=== PATIENT | female | born 1950 | race Caucasian/White ===

== ENCOUNTER 2019-05-31 21:12 | Inpatient (IN) | payer MEDICARE, MEDICAID, SELFPAY ==
--- NOTE | ~2019-05-31 | US_ITS ---
EXAMINATION: US perc cholecystostomy w imag DATE: 06/01/2019 15:21 INDICATION: Acute cholecystitis TECHNIQUE: The procedure including the risks and benefits was discussed with the patient. Risks discu ssed included bleeding including hemorrhage and bile peritonitis. Oral and written consent were obtai chin. The patient was confirmed to be receiving appropriate antibiotic coverage. The skin overlying t he liver and gallbladder was prepped and draped in usual sterile fashion. Anesthetic was administere d with 1% lidocaine subcutaneously. An 8.5 Fr catheter was inserted through liver parenchyma into th e gallbladder by trocar technique. The metal stiffener and trocar needle were removed, and the pigtai l tip was locked. There was spontaneous efflux of dark black/maroon-colored bile within the catheter which was attached to gravity drainage bag. The catheter was stitched to the skin with suture. There were no immediate complications. FINDINGS: The gallbladder is dilated with prominent wall thickening consistent with acute cholecystit is. Ultrasound images demonstrate the catheter formed within the gallbladder. IMPRESSION: 1. Successful ultrasound-guided cholecystostomy tube placement. 2. The catheter will be managed by Dr. Figueroa. A catheter cholangiogram may be performed not less th an 48 hours after tube placement if clinically indicated to assess cystic duct patency. If cholecyst ectomy is not eventually performed and the infectious episode has resolved, the tube may be removed o ru a guidewire, preferably not less than 3 weeks after placement to allow time for a mature catheter tract to form to prevent bile leakage and peritonitis. 3. A sample of the bile was inadvertently not sent to the lab at the time of the procedure. I discuss ed this with Huseyin, the patient's nurse, who will sterilely collected a sample from the drainage bag t o be sent to the lab. I entered orders for Gram stain with aerobic, anaerobic and fungal cultures. Reviewed, dictated and finalized at location A. CAD DESIGNER IMPRESSION: 1. Successful ultrasound-guided cholecystostomy tube placement. 2. The catheter will be managed by Dr. Figueroa. A catheter cholangiogram may be performed not less than 48 hours after tube placement if clinically indicated to assess cystic duct patency. If cholecystectomy is not eventually performed and the infectious episode has resolved, the tube may be removed over a guidewi re, preferably not less than 3 weeks after placement to allow time for a mature catheter tract to form to prevent bile leakage and peritonitis. 3. A sample of the bile was inadvertently not sent to the lab at the time of th e procedure. I discussed this with Huseyin, the patient's nurse, who will sterilel y collected a sample from the drainage bag to be sent to the lab. I entered ord ers for Gram stain with aerobic, anaerobic and fungal cultures.
--- NOTE | ~2019-05-31 | CT_ITS ---
EXAMINATION: CT abdomen pelvis w con DATE: 05/31/2019 22:45 INDICATION: Abdominal pain TECHNIQUE: Computed tomography (CT) of the abdomen and pelvis was performed with 100 mL Omnipaque-350 intravenous contrast. Automated exposure control and iterative reconstruction technique were employe d. The dose-length product was 1409.18 mGy-cm. COMPARISON: None FINDINGS: Respiratory motion at the lung bases. Discoid atelectasis in the left lower lobe and lingula. Mild ca rdiomegaly. Atherosclerotic coronary artery calcifications and dense mitral annular calcification. Sm all pericardial effusion. No pleural effusion. Small sliding-type hiatal hernia with wall thickening in the distal esophagus which could be related to reflux esophagitis. Gallbladder is dilated to 5.3 cm with edematous-appearing gallbladder wall thickening and pericholecy stic inflammatory stranding and small amount of fluid consistent with acute cholecystitis. There are 2 small foci of gas at the cari hepatis in the region of the neck of the gallbladder/cystic duct and which appear peripheral to the wall of the duodenum. There is also a tiny focus of gas at the tip of the fundus of the gallbladder. Findings suggest the possibility of an enterobiliary fistula versus i nfection with gas-forming organism. No other free intraperitoneal gas. Liver, spleen, pancreas and bilateral adrenal glands are normal. Calcifications at the bilateral king l chantel which appear to extend along the vessels and favor atherosclerotic calcific a cyst over nonobs tructing nephrolithiasis. 6.5 x 9.6 x 8.1 cm ventral hernia containing fat likely arising from the gr eater omentum. This extends through a 3.3 x 3.8 cm orifice along a supraumbilical midline surgical sc ar. Bowels including the appendix are normal with no wall thickening or obstruction. Bladder is claudia l. Normal anteverted atrophic uterus and bilateral adnexa. No abscess or free fluid in the pelvis. No pathologically enlarged abdominal or pelvic lymphadenopathy. There is calcified atherosclerosis of t he aorta and many of the other arteries. Severe thoracolumbar spondylosis. IMPRESSION: 1. Acute cholecystitis with minimal gas in the gallbladder and likely at the cystic duct which could be related to gas-forming organism or an enterobiliary fistula. 2. Wall thickening in the distal esophagus with small hiatal hernia suggesting possibility of reflux esophagitis. 3. Small pericardial effusion. 4. Moderate-sized fat-containing supraumbilical ventral hernia. Reviewed, dictated and finalized at location A. TS ANCHOR IMPRESSION: 1. Acute cholecystitis with minimal gas in the gallbladder and likely at the cy stic duct which could be related to gas-forming organism or an enterobiliary fi stula. 2. Wall thickening in the distal esophagus with small hiatal hernia suggesting possibility of reflux esophagitis. 3. Small pericardial effusion. 4. Moderate-sized fat-containing supraumbilical ventral hernia.
--- NOTE | 2019-05-31 21:16 | ED.NAVMDI ---
HPI - Nausea/Vomiting/Diarrhea General Chief complaint: Nausea/Vomiting/Diarrhea <Marva Fay MD - Last Filed: 06/02/19 15:14> Stated complaint: elevated bs, hr <Marva Fay MD - Last Filed: 06/02/19 15:14> Time Seen by Provider: 05/31/19 21:13 <Marva Fay MD - Last Filed: 06/02/19 15:14> Source: patient, EMS and RN notes reviewed <Marva Fay MD - Last Filed: 06/02/19 15:14> Mode of arrival: EMS <Marva Fay MD - Last Filed: 06/02/19 15:14> Limitations: no limitations <Marva Fay MD - Last Filed: 06/02/19 15:14> History of Present Illness HPI Narrative: A 68 y/o female presents to the ED via EMS with dull, 8/10, epigastric ABD pain for the past 2-3 days. She reports associated N/V and constipation. She notes that palpation aggravates the pain and denies anything alleviating it. She also notes that she is a DM I and that her BS has been elevated lately. She denies any diarrhea, fevers, chills, cough, SOB, CP, and any other medical complaints at this time. <Marva Fay MD - Last Filed: 06/02/19 15:14> MD elicited complaint: abdominal pain (Epigastric) <Marva Fay MD - Last Filed: 06/02/19 15:14> Onset (ago): day(s) (2-3) <Marva Fay MD - Last Filed: 06/02/19 15:14> Associated nausea: Yes <Marva Fay MD - Last Filed: 06/02/19 15:14> Location of pain: epigastric <Marva Fay MD - Last Filed: 06/02/19 15:14> Pain scale (0-10): 8 <Marva Fay MD - Last Filed: 06/02/19 15:14> Quality: dull <Marva Fay MD - Last Filed: 06/02/19 15:14> Exacerbating factors: other (palpation) <Marva Fay MD - Last Filed: 06/02/19 15:14> Relieving factors: none <Marva Fay MD - Last Filed: 06/02/19 15:14> Associated symptoms: nausea/vomiting and other (constipation) <Marva Fay MD - Last Filed: 06/02/19 15:14> Related Data Home medications: Home Medications Medication Instructions Recorded Confirmed alendronate 70 mg PO WEEKLY 06/01/19 06/01/19 amlodipine 10 mg PO DAILY 06/01/19 06/01/19 aspirin 81 mg PO DAILY 06/01/19 06/01/19 bisacodyl [Dulcolax (bisacodyl)] 10 mg PO HS PRN 06/01/19 06/01/19 calcium carbonate-vitamin D3 1 tablet PO DAILY 06/01/19 06/01/19 [Calcium 600 + D(3)] cholecalciferol (vitamin D3) 1,000 unit PO BID 06/01/19 06/01/19 cyanocobalamin (vitamin B-12) 1,000 mcg IM MONTHLY 06/01/19 06/01/19 demeclocycline 300 mg PO Q12H 06/01/19 06/01/19 escitalopram oxalate 20 mg PO DAILY 06/01/19 06/01/19 insulin aspart U-100 [Novolog 1 sliding scale dose SUBCUT DAILY 06/01/19 06/01/19 U-100 Insulin aspart] insulin aspart U-100 [Novolog 1 sliding scale dose SUBCUT DAILY 06/01/19 06/01/19 U-100 Insulin aspart] insulin aspart U-100 [Novolog 4 unit SUBCUT 06/01/19 U-100 Insulin aspart] insulin glargine [Lantus U-100 28 unit SUBCUT HS 06/01/19 06/01/19 Insulin] levothyroxine 112 mcg PO DAILY 06/01/19 06/01/19 lidocaine HCl [Aspercreme 1 applic TOPICAL QID PRN 06/01/19 (lidocaine)] liothyronine [Cytomel] 5 mcg PO BID 06/01/19 06/01/19 meclizine 12.5 mg PO TID 06/01/19 06/01/19 melatonin 1 mg PO HS PRN 06/01/19 06/01/19 fspeshfqjvtg-ccx-cemd-FA-vit K 1 tablet PO DAILY 06/01/19 06/01/19 [Adults Multivitamin] nystatin 1 applic TOPICAL BID PRN 06/01/19 06/01/19 polyethylene glycol 3350 [Miralax] 17 g PO BID 06/01/19 06/01/19 ranitidine HCl 150 mg PO DAILY PRN 06/01/19 06/01/19 risperidone 1 mg PO HS 06/01/19 06/01/19 sennosides-docusate sodium [Senna 2 tab-cap PO BID 06/01/19 06/01/19 Plus] <Marva Fay MD - Last Filed: 06/02/19 15:14> Allergies/Adverse reactions: Allergies Allergy/AdvReac Type Severity Reaction Status Date / Time chlorpromazine Allergy Unknown Verified 02/13/12 13:47 lactase Allergy Unknown Verified 06/14/11 15:08 levofloxacin Allergy Unknown Verified 02/13/12 13:47 Penicillins Allergy Unknown Verified 02/13/12 13:46 Sulfa (Sulfonamide
[2019-05-31 21:21] VITALS: BP 168/71; PULSE 117; RESP 18; TEMP 37.8; O2SAT 99
--- NOTE | 2019-05-31 21:21 | ECG_ITS ---
Measurements Intervals [place] Rate: 115 P: 64 OK: 132 QRS: -60 QRSD: 86 T: 61 QT: 324 QTc: 450 Interpretive Statements SINUS TACHYCARDIA POSSIBLE LEFT ATRIAL ENLARGEMENT INCOMPLETE RIGHT BUNDLE BRANCH BLOCK LOW QRS VOLTAGE IN PRECORDIAL LEADS LEFT ANTERIOR FASCICULAR BLOCK CONSIDER INFERIOR INFARCT, AGE INDETERMINATE ABNORMAL ECG Electronically Signed On 06-01-2019 7:32:14 PRINT PRODUCTION COORDINATOR by Francis Blanchard D.O.
[2019-05-31] MEDS: SODIUM CHLORIDE 0.9% IV 1,000 ML 999 ML IV CONT (21:35)
[2019-05-31] MEDS: ONDANSETRON INJ 4 MG/2 ML VIAL IV PUSH (21:41)
[2019-05-31 21:47] LABS: Add Urine Microscopic? YES; Appearance Urine Clear (Clear); Bacteria Urine Trace /hpf; Bilirubin Urine Negative (Negative); Blood Urine 2+ (Negative); Color Urine Yellow (Yellow); Glucose Urine UA 3+ mg/dL (Negative); Ketones Urine 2+ mg/dL (Negative); Leukocyte Esterase Ur Negative LEU/UL (Negative); Mucus Urine Rare /lpf; Nitrate Urine Negative (Negative); Protein Urine 2+ mg/dL (Negative); RBC Urine 0-2 /hpf (0-2); Specific Grav Ur 1.025 (1.001-1.035); Squamous Epithelial Cell Urine Few /hpf (Few); Urobilinogen Urine Negative mg/dL (<2.0); WBC Urine 0-3 /hpf
[2019-05-31 22:01] LABS: Basophils Percent Auto 0.1 % (0.2-1.2); Hematocrit 38.4 % (37.0-47.0); Hemoglobin 12.9 g/dL (12.0-15.0); Immature Granulocyte Absolute 0.12 K/mm3 (0.00-0.031); Immature Granulocyte Percent A 0.6 % (0-0.5); Lymphocytes Absolute Auto 0.84 K/mm3 (0.9-3.2); Lymphocytes Percent Auto 3.9 % (18.3-44.2); Mean Corpuscular HGB Conc 33.6 g/dl (32-36); Mean Corpuscular Hemoglobin 30.6 pg (26-34); Mean Platelet Volume 11.3 fl (7.4-10.4); Monocytes Percent Auto 4.4 % (2.6-8.5); Neutrophils Absolute Auto 19.8 K/mm3 (1.3-6.7); Platelet Count Result 291 k/mm3 (150-375); Red Blood Count 4.22 M/mm3 (4.2-5.4); White Blood Count 21.7 K/mm3 (4.5-10.0)
[2019-05-31 22:19] LABS: Alanine Aminotransferase 26 U/L (4-35); Albumin Level 4.3 g/dL (3.5-5.1); Alkaline Phosphatase 108 U/L (38-126); Aspartate Amino Transferase 23 U/L (14-36); Bilirubin,Total 0.7 mg/dL (0.2-1.3); Blood Urea Nitrogen 12 mg/dL (7-17); Carbon Dioxide 24 mmol/L (22-30); Chloride 91 mmol/L (98-107); Estimated CRCL calculation 99 ml/min; Estimated Glomerular Filt Rate > 60; Glucose 362 mg/dL (65-105); Lipase 56 U/L (23-300); Potassium 4.3 mmol/L (3.4-5.0); Sodium 127 mmol/L (137-145)
[2019-05-31 22:40] LABS: Troponin I 0.091 ng/mL (0.000-0.034)
[2019-05-31 23:28] LABS: Beta-Hydroxybutyrate/Acetoacetate 2.46 mmol/L (0.02-0.27)
[2019-05-31] MEDS: INSULIN HUMAN REGULAR (*BKC) 100 UNITS/ML 10 UNITS IV PUSH (23:38)
[2019-05-31] MEDS: metroNIDAZOLE 500 MG/ISO 100ML 500 MG/100 ML BAG 100 MG IVPB (23:39)
[2019-05-31 23:46] LABS: Glucose Point of Care 359 (65-105)
[2019-05-31 23:53] LABS: Lactic Acid Reflex 1.9 mmol/L (0.7-2.1)
[2019-06-01] VITALS (15 sets, daily range): BP systolic 135–174; BP diastolic 58–98; PULSE 46–121; RESP 16–26; TEMP 36.3; O2SAT 97–100; BMI 42.8
--- NOTE | 2019-06-01 | ECHO_ITS ---
Patient Info Name: Miladys Felipe Age: 68 years : 1950 Gender: Female Ht: 65 in Wt: 260 lbs BSA: 2.39 m2 HR: 101 bpm BP: 174 / 62 mmHg Technical Quality: Fair Exam Date: 06/01/2019 10:36 AM Exam Location: [facility] Patient Status: Inpatient Admit Date: 06/01/2019 Staff Ordering Physician: Sarah Gillespie PA-C Metalworking Instructor: Miladys Barnett RDCS Attending Provider: Izabel Holt DO Referring Physician: Jose Miguel MATOS; Exam Type: CA echo dop color flow w con Study Info Complete two-dimensional, color flow and Doppler transthoracic echocardiogram is performed with contrast to opacify the left ventrical and to improve the deliniation of the left ventrical endocarial boarders. Contrast/Agitated Saline Contrast/Ag. Saline: Definity Amount: 2.00 ml Summary 1. There is moderate aortic valve sclerosis. Left Ventricle Left ventricular chamber dimension is normal. Left ventricular systolic function is normal, estimated at 65-70%. There is no increased left ventricular wall thickness. Left ventricular septal wall motion is normal. The left ventricular diastolic function is normal. Right Ventricle Right ventricular chamber dimension is normal. Right ventricular systolic function is normal. Left Atria Left atrial chamber dimension is normal. Right Atria Right atrial chamber dimension is normal. Aortic Valve The aortic valve is trileaflet. There is moderate aortic valve sclerosis. There is no aortic valve stenosis. There is no aortic valve regurgitation. Pulmonic Valve The pulmonic valve is normal. There is no pulmonic valve stenosis. There is no pulmonic regurgitation. Mitral Valve The mitral valve has normal leaflets. There is no mitral valve stenosis. There is no mitral valve regurgitation. Tricuspid Valve The tricuspid valve leaflets are normal. There is no significant tricuspid valve stenosis. There is no tricuspid valve regurgitation. Mild pulmonary hypertension, estimated pulmonary arterial systolic pressure is 38 mmHg. Pericardium/Pleural The pericardium appears normal. There is no pericardial effusion. Aorta The aortic root size at the sinus of Valsalva is normal. The prox ascending aorta size is normal. Left Ventricular Outflow Tract Name Value Normal LVOT 2D LVOT Diameter 2.03 cm LVOT Doppler LVOT Peak Velocity 131.71 cm/s LVOT Peak Gradient 6 mmHg LVOT Mean Gradient 1 mmHg LVOT VTI 32.26 cm LVOT VTI/AV VTI Ratio 0.85 LVOT Stroke Volume 104.69 ml LVOT CO 20.38 l/min LVOT CI 8.53 L/min/m2 Pulmonic Valve Name Value Normal PV Doppler
[2019-06-01] MEDS: LABETALOL HCL INJ 100 MG/20 ML VIAL 20 MG IV PUSH (00:03)
[2019-06-01 00:59] LABS: Troponin I 0.093 ng/mL (0.000-0.034)
[2019-06-01 00:59] LABS: Glucose Point of Care 283 (65-105)
[2019-06-01] MEDS: SODIUM CHLORIDE 0.9% IV 1,000 ML 150 ML IV CONT (02:07)
[2019-06-01 04:25] LABS: Troponin I 0.109 ng/mL (0.000-0.034)
[2019-06-01] MEDS: metroNIDAZOLE 500 MG/ISO 100ML 500 MG/100 ML BAG 100 MG (06:14)
[2019-06-01 08:19] LABS: Glucose Point of Care 420 (65-105)
[2019-06-01 09:20] LABS: Basophils Absolute Auto 0.1 K/mm3 (0.0-0.1); Basophils Percent Auto 0.2 % (0.2-1.2); Hematocrit 35.7 % (37.0-47.0); Hemoglobin 11.8 g/dL (12.0-15.0); Immature Granulocyte Percent A 0.8 % (0-0.5); Lymphocytes Absolute Auto 1.05 K/mm3 (0.9-3.2); Mean Corpuscular HGB Conc 33.1 g/dl (32-36); Mean Corpuscular Hemoglobin 30.6 pg (26-34); Mean Corpuscular Volume 92.5 fl (80-100); Mean Platelet Volume 11.6 fl (7.4-10.4); Monocytes Absolute Auto 1.5 K/mm3 (0.1-0.6); Monocytes Percent Auto 5.6 % (2.6-8.5); Neutrophils Absolute Auto 23.2 K/mm3 (1.3-6.7); Neutrophils Percent Auto 89.4 % (45.5-73.1); Platelet Count Result 268 k/mm3 (150-375); Red Blood Count 3.86 M/mm3 (4.2-5.4); Red Cell Distribution Width 12.3 % (11.5-14.5)
[2019-06-01 09:33] LABS: Lactic Acid Reflex 1.3 mmol/L (0.7-2.1)
[2019-06-01 09:34] LABS: Alanine Aminotransferase 22 U/L (4-35); Albumin Level 3.8 g/dL (3.5-5.1); Alkaline Phosphatase 99 U/L (38-126); Aspartate Amino Transferase 19 U/L (14-36); Bilirubin,Total 0.7 mg/dL (0.2-1.3); Blood Urea Nitrogen 15 mg/dL (7-17); Calcium 8.9 mg/dL (8.4-10.2); Carbon Dioxide 18 mmol/L (22-30); Chloride 95 mmol/L (98-107); Estimated CRCL calculation 101 ml/min; Estimated Glomerular Filt Rate > 60; Glucose 425 mg/dL (65-105); Potassium 4.2 mmol/L (3.4-5.0); Sodium 132 mmol/L (137-145)
--- NOTE | 2019-06-01 09:40 | PM.CNCAR ---
Assessment and Plan Assessment and plan (1) Non-ST elevation myocardial infarction (NSTEMI): Code(s): I21.4 - Non-ST elevation (NSTEMI) myocardial infarction Status: Acute Assessment and Plan: She has slight elevation of troponin, will get echocardiogram to evaluate current status of left ventricular systolic function and look for any other structural heart disease, she needs to be on aspirin, and metoprolol. No heparin for now due to the fact that she may go for surgery or a procedure, from cardiac standpoint it is okay to go for surgery as long as we are on standby to intervene if she has any worsening or any cardiac abnormalities. Long-term she would need to have cardiac catheterization in few days after she is otherwise stabilized (2) Pre-operative cardiovascular exam, new EKG abnormalities c/w ischemia: Code(s): Z01.810 - Encounter for preprocedural cardiovascular examination; R94.31 - Abnormal electrocardiogram [ECG] [EKG] Status: Acute Assessment and Plan: Since the surgery is possibly urgent, okay to proceed with that assuming she is taking metoprolol and taking aspirin, will follow-up closely and be on standby (3) Sepsis: Qualifiers: Sepsis acute organ dysfunction status: without acute organ dysfunction Sepsis type: sepsis due to unspecified organism Qualified Code(s): A41.9 - Sepsis, unspecified organism Code(s): A41.9 - Sepsis, unspecified organism Status: Acute (4) Acute cholecystitis: Code(s): K81.0 - Acute cholecystitis Status: Acute Assessment and Plan: She has been evaluated by General surgery, maybe going for gallbladder surgery versus drainage, okay to proceed with whatever procedure needed stenosis is urgent, will need cardiac catheterization whenever she is otherwise stable, and was started on aspirin and metoprolol, get echocardiogram to evaluate current status of left ventricular systolic function, look for any structural heart disease. Additional Plan Thank you for allowing me to participate in this patient's care, I will be following up with you. Please do not hesitate to call me for any other inquiry History of Present Illness History of Present Illness Consult date/time: 06/01/19 09:40 68 years old lady with history of diabetes mellitus, type 1, history of bipolar disorder, came to the hospital because of nausea vomiting abdominal pain, noted to have gallbladder disease and she has been consider for possible gallbladder surgery. With the workup had noted significant tachycardia cardiac enzymes were done and showed slight elevation of troponin. She stated that she has history of diabetes mellitus for many years and history of dyslipidemia but had not had any heart issues. She is not very good historian however but she has significant shortness breath no chest pain no known history of coronary artery disease. Her EKG showed possible old inferior wall myocardial infarction, I talked with the surgeon, she has been considered for gallbladder surgery versus temporary drainage and medical treatment with observation. Currently she is not having active chest pain, which has mild shortness breath on mild leg edema. She has mild orthopnea no PNDs. And as above she has nausea and vomiting Reason For Visit: Acute cholecystitis, elevation PMFSH Past Medical History Medical History (Updated 06/01/19 @ 09:45 by Sheng Faria MD) Anxiety Bipolar 1 disorder Cataracts, bilateral Charcot gait Colitis Depression DM I (diabetes mellitus, type I) GERD (gastroesophageal reflux disease) Glaucoma H/O: HTN (hypertension) Hypercholesteremia Hypoglycemia Hypothyroid IBS (irritable bowel syndrome) Peripheral neuropathy Schizophrenia Thyroid cancer Surgical History Surgical History (Updated 05/31/19 @ 21:46 by Donell Gonzalez) H/O foot surgery History of thyroidectomy Hx of bilateral cataract extraction Previous section x2. Family Histo
[2019-06-01 09:48] LABS: Troponin I 0.083 ng/mL (0.000-0.034)
[2019-06-01] MEDS: METOPROLOL TARTRATE INJ 5 MG/5 ML VIAL IV PUSH (09:49)
[2019-06-01] MEDS: ASPIRIN 81 MG CHEWABLE TABLET 324 MG PO (10:01)
[2019-06-01] MEDS: PANTOPRAZOLE SODIUM IV 40 MG VIAL IV PUSH ×2 (10:02→22:28)
[2019-06-01 10:09] LABS: Cholesterol 203 mg/dL (0-200); HDL Direct 77 mg/dL; Triglycerides 61 mg/dL (<150)
[2019-06-01 10:20] LABS: LDL Cholesterol Direct 89 mg/dL
[2019-06-01] MEDS: INSULIN ASPART (*BKC) 100 UNITS/ML 8 UNITS SUB-Q (10:25)
[2019-06-01] MEDS: INSULIN GLARGINE (*BKC) 100 UNITS/ML 8 UNITS SUB-Q (10:40)
--- NOTE | 2019-06-01 10:59 | PM.CNGS ---
Assessment and Plan Assessment and plan (1) Acute cholecystitis: Code(s): K81.0 - Acute cholecystitis Status: Acute Assessment and Plan: I have reviewed the CT. I have also discussed her condition with Radiology and cardiology. She has positive troponins which are concerning for active heart disease which increases her risks for surgery. The findings on the CT also show possible emphysematous cholecystitis and there is significant inflammatory reaction around the gallbladder with bowel in very close proximity. Cannot rule out cholecysto-enteric fistula. Surgery would be very high risk in the patient's current condition with sepsis and NSTEMI. Will plan for ultrasound-guided cholecystostomy tube placement by Radiology today. I will continue to manage the cholecystostomy tube in the interim. Continue broad-spectrum IV antibiotics. Interval cholecystectomy may be planned further down the road, but this will be determined by patient's overall status and heart condition. (2) Sepsis: Qualifiers: Sepsis acute organ dysfunction status: without acute organ dysfunction Sepsis type: sepsis due to unspecified organism Qualified Code(s): A41.9 - Sepsis, unspecified organism Code(s): A41.9 - Sepsis, unspecified organism Status: Acute (3) Non-ST elevation myocardial infarction (NSTEMI): Code(s): I21.4 - Non-ST elevation (NSTEMI) myocardial infarction Status: Acute (4) Morbid obesity with BMI of 40.0-44.9, adult: Code(s): E66.01 - Morbid (severe) obesity due to excess calories; Z68.41 - Body mass index (BMI) 40.0-44.9, adult Status: Acute (5) Ventral hernia without obstruction or gangrene: Code(s): K43.9 - Ventral hernia without obstruction or gangrene Status: Acute (6) DM I (diabetes mellitus, type I): Qualifiers: Diabetes mellitus complication status: with neurologic complications Diabetes mellitus complication detail: with polyneuropathy Qualified Code(s): E10.42 - Type 1 diabetes mellitus with diabetic polyneuropathy Code(s): E10.9 - Type 1 diabetes mellitus without complications Status: Acute History of Present Illness Consult details Consult date: 06/01/19 Narrative: this is a 68-year-old woman who presented to the emergency department overnight with complaints of abdominal pain with nausea and vomiting. She has been experiencing abdominal pain in the upper abdomen for about 3 days. She denies any particular food that she ate that could have caused this. She has never had symptoms like this in the past. She is a type 1 diabetic, and she states that her blood sugars have been very elevated over the past couple days as well. She has not eaten anything since yesterday, but her sugars still remain elevated. She denies any chest pain or shortness of breath. She denies any prior cardiac history. She does know that she has an abdominal hernia that has been present for about 6 or 8 months. It has not caused her any significant pain until just these past few days. She does feel that her pain is somewhat improved since starting antibiotics last night. She denies any fevers or chills. Review of Systems Review of Systems: All systems reviewed & are unremarkable except as noted in HPI and below Constitutional: Constitutional: Denies chills and Denies fever(s) Eyes: Eyes: Denies change in vision ENT: Denies hearing loss, Denies neck pain and Denies sore throat Cardiovascular: Cardiovascular: Denies chest pain and Denies dyspnea Respiratory: Respiratory: Denies cough, Denies dyspnea and Denies wheezing Gastrointestinal: Gastrointestinal: Reports as per HPI and Reports constipation Genitourinary: Genitourinary: Denies hematuria and Denies dysuria Musculoskeletal: Musculoskeletal: Denies arthralgias, Denies joint swelling and Denies neck pain Allergic/Immunologic: Allergic/Immunologic: Denies wheezing PMFSH Past Medical History M
[2019-06-01 13:07] LABS: Glucose Point of Care 324 (65-105)
[2019-06-01] MEDS: INSULIN ASPART (*BKC) 100 UNITS/ML SUB-Q ×3 (13:13→21:10)
[2019-06-01 13:32] LABS: INR 1.1; Prothrombin Time 14.2 Seconds (11.1-14.7)
[2019-06-01 13:33] LABS: Partial Thromboplastin Time 39.3 SECONDS (22.3-36.8)
[2019-06-01] MEDS: MORPHINE SULFATE 4 MG/ML INJ IV PUSH ×2 (14:32→16:41)
--- NOTE | 2019-06-01 15:28 | ADMGEN ---
This patient, Miladys Felipe, was admitted to IMU Room 206-02. Patient/family oriented to hospital policies and general routines including ID bracelet, bed and alarms, visiting hours, pain management, procedures, bathroom and other care routines, personal items, smoking policy, room service/diet, and visiting hours. Valuables list has been completed. Information on how to activate the Rapid Response Team has been discussed. Patient/Family are encouraged to report perceived risks to care and to ask questions if they do not understand what they are told or what they should do.
[2019-06-01] MEDS: metroNIDAZOLE 500 MG/ISO 100ML 500 MG/100 ML BAG 100 MG IVPB ×2 (16:08→22:26)
[2019-06-01] MEDS: LACTATED RINGERS 1,000 ML 100 ML IV CONT (16:08)
--- NOTE | 2019-06-01 16:57 | PM.IMHP ---
H&P: HPI History of Present Illness Chief complaint: Acute cholecystitis, elevation Narrative: Miladys Felipe is a 68 year old female [facility] morbidly obese with history of diabetes with a complaint of abdominal pain nausea or vomiting and constipation CT scan of abdomen showed acute cholecystitis with minimal gas in the gallbladder and likely at the cystic duct which could be related to gas-forming organism or an enterobiliary fistula., also has a non STEMI and hyperglycemia, patient is seen by general surgery recommended conservative management with 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 and with elevated tropes and hyperglycemia patient is a very high risk of surgery and recommended ultrasound-guided cholecystostomy tube by intervention radiologist, patient also seen by commercial portfolio manager patient has a mildly elevated tropes does not recommend ischemic workup at the present time cardiac echo is ordered further assess structural abnormality of the heart, we have started the patient on home broad-spectrum antibiotic will gently hydrate the patient monitor patient blood sugar is patient's symptoms stabilized see general surgery will reassess with a recommendation with possible cholecystectomy Review of Systems Review of Systems: All systems reviewed & are unremarkable except as noted in HPI and below PMFSH Past Medical History Medical History Anxiety Bipolar 1 disorder Cataracts, bilateral Charcot gait Colitis Depression DM I (diabetes mellitus, type I) GERD (gastroesophageal reflux disease) Glaucoma H/O: HTN (hypertension) Hypercholesteremia Hypoglycemia Hypothyroid IBS (irritable bowel syndrome) Peripheral neuropathy Schizophrenia Thyroid cancer Surgical History Surgical History H/O foot surgery History of thyroidectomy Hx of bilateral cataract extraction Previous section x2. Family History Family History Mother Family history of thyroid disease Sibling Family history of thyroid disease Father Cancer Other Family history of arthritis Family history of cataracts Family history of glaucoma Family history of hearing loss Family history of lung disease Social History Social History Smoking status: Never smoker Alcohol intake: never Substance use: never Spiritual care concerns: No Agree to blood products: Yes Meds Home Medications and Allergies Home Medications Medication Instructions Recorded Confirmed Type alendronate 70 mg PO WEEKLY 06/01/19 06/01/19 History amlodipine 10 mg PO DAILY 06/01/19 06/01/19 History aspirin 81 mg PO DAILY 06/01/19 06/01/19 History bisacodyl [Dulcolax (bisacodyl)] 10 mg PO HS PRN 06/01/19 06/01/19 History calcium carbonate-vitamin D3 1 tablet PO DAILY 06/01/19 06/01/19 History [Calcium 600 + D(3)] cholecalciferol (vitamin D3) 1,000 unit PO BID 06/01/19 06/01/19 History cyanocobalamin (vitamin B-12) 1,000 mcg IM MONTHLY 06/01/19 06/01/19 History demeclocycline 300 mg PO Q12H 06/01/19 06/01/19 History escitalopram oxalate 20 mg PO DAILY 06/01/19 06/01/19 History insulin aspart U-100 [Novolog 1 sliding scale dose SUBCUT DAILY 06/01/19 06/01/19 History U-100 Insulin aspart] insulin aspart U-100 [Novolog 1 sliding scale dose SUBCUT DAILY 06/01/19 06/01/19 History U-100 Insulin aspart] insulin aspart U-100 [Novolog 4 unit SUBCUT 06/01/19 History U-100 Insulin aspart] insulin glargine [Lantus U-100 28 unit SUBCUT HS 06/01/19 06/01/19 History Insulin] levothyroxine 112 mcg PO DAILY 06/01/19 06/01/19 History lidocaine HCl [Aspercreme 1 applic TOPICAL QID PRN 06/01/19 History (lidocaine)] liothyronine [Cytomel] 5 mcg PO BID 06/01/19 06/01/19 History meclizine 12.5 mg
[2019-06-01 17:23] LABS: Glucose Point of Care 306 (65-105)
[2019-06-01] MEDS: SIMETHICONE 125 MG CHEW TAB PO ×2 (17:23→21:02)
[2019-06-01 20:11] LABS: Glucose Point of Care 429 (65-105)
[2019-06-01] MEDS: METOPROLOL TARTRATE 25 MG TABLET PO (21:02)
[2019-06-01] MEDS: DEMECLOCYCLINE HCL 150 MG TABLET 300 MG PO (21:02)
[2019-06-01] MEDS: risperiDONE 1 MG TABLET PO (21:02)
[2019-06-01] MEDS: INSULIN GLARGINE (*BKC) 100 UNITS/ML 28 UNITS SUB-Q (21:09)
[2019-06-01 22:58] LABS: Glucose Point of Care 460 (65-105)
[2019-06-01] MEDS: INSULIN ASPART (*BKC) 100 UNITS/ML 10 UNITS SUB-Q (23:05)
[2019-06-02] VITALS (18 sets, daily range): BP systolic 110–137; BP diastolic 49–58; PULSE 64–87; RESP 20–22; TEMP 36.1–36.9; O2SAT 96–99
[2019-06-02 01:04] LABS: Glucose Point of Care 335 (65-105)
[2019-06-02 02:24] LABS: Hematocrit 30.1 % (37.0-47.0); Hemoglobin 9.9 g/dL (12.0-15.0); Mean Corpuscular HGB Conc 32.9 g/dl (32-36); Mean Corpuscular Hemoglobin 30.4 pg (26-34); Mean Corpuscular Volume 92.3 fl (80-100); Mean Platelet Volume 11.4 fl (7.4-10.4); Platelet Count Result 206 k/mm3 (150-375); Red Blood Count 3.26 M/mm3 (4.2-5.4); Red Cell Distribution Width 12.3 % (11.5-14.5); White Blood Count 17.3 K/mm3 (4.5-10.0)
[2019-06-02 02:36] LABS: Alanine Aminotransferase 20 U/L (4-35); Albumin Level 3.1 g/dL (3.5-5.1); Alkaline Phosphatase 71 U/L (38-126); Aspartate Amino Transferase 19 U/L (14-36); Bilirubin,Total 0.4 mg/dL (0.2-1.3); Blood Urea Nitrogen 25 mg/dL (7-17); Calcium 8.5 mg/dL (8.4-10.2); Carbon Dioxide 26 mmol/L (22-30); Chloride 94 mmol/L (98-107); Estimated CRCL calculation 78 ml/min; Estimated Glomerular Filt Rate > 60; Glucose 240 mg/dL (65-105); Potassium 3.6 mmol/L (3.4-5.0); Sodium 130 mmol/L (137-145)
[2019-06-02 02:40] LABS: Beta-Hydroxybutyrate/Acetoacetate 0.05 mmol/L (0.02-0.27)
[2019-06-02] MEDS: LACTATED RINGERS 1,000 ML 100 ML IV CONT (04:17)
[2019-06-02] MEDS: ALENDRONATE SODIUM 70 MG TABLET PO (06:11)
[2019-06-02] MEDS: GUAIFENESIN/DEXTROMETHORPHAN 10 ML UDC 5 ML PO (06:11)
[2019-06-02] MEDS: LEVOTHYROXINE SODIUM 112 MCG TABLET PO (06:11)
[2019-06-02] MEDS: metroNIDAZOLE 500 MG/ISO 100ML 500 MG/100 ML BAG 100 MG IVPB ×3 (06:12→20:08)
[2019-06-02 09:06] LABS: Glucose Point of Care 255 (65-105)
[2019-06-02] MEDS: INSULIN ASPART (*BKC) 100 UNITS/ML SUB-Q ×4 (09:33→13:52)
[2019-06-02] MEDS: SODIUM CHLORIDE 0.9% IV 1,000 ML 100 ML IV CONT ×2 (09:33→20:08)
[2019-06-02] MEDS: CHOLECALCIFEROL 1,000 UNIT TABLET 1000 UNITS PO ×2 (09:36→16:48)
[2019-06-02] MEDS: MULTIVITAMINS /C LUTEIN (CENTRUM SILVER) TABLET *BKC 1 TAB PO (09:36)
[2019-06-02] MEDS: SIMETHICONE 125 MG CHEW TAB PO ×4 (09:36→20:09)
[2019-06-02] MEDS: MECLIZINE HCL 12.5 MG TABLET PO ×3 (09:36→16:50)
[2019-06-02] MEDS: SENNA/DOCUSATE SODIUM TABLET 2 TAB PO ×2 (09:36→16:49)
[2019-06-02] MEDS: FAMOTIDINE 20 MG TABLET PO (09:36)
[2019-06-02] MEDS: DEMECLOCYCLINE HCL 150 MG TABLET 300 MG PO ×2 (09:36→20:09)
[2019-06-02] MEDS: AMLODIPINE BESYLATE 5 MG TABLET 10 MG PO (09:37)
[2019-06-02] MEDS: METOPROLOL TARTRATE 25 MG TABLET PO ×2 (09:37→20:09)
[2019-06-02] MEDS: ESCITALOPRAM OXALATE 10 MG TABLET 20 MG PO (09:37)
[2019-06-02] MEDS: ASPIRIN 81 MG ENTERIC TABLET PO (09:37)
[2019-06-02] MEDS: CALCIUM CARBONATE (OSCAL) 500 MG TABLET PO (09:38)
[2019-06-02] MEDS: PANTOPRAZOLE SODIUM IV 40 MG VIAL IV PUSH ×2 (09:38→20:10)
--- NOTE | 2019-06-02 10:22 | PM.PNGS ---
Progress Note: A&P Assessment and Plan (1) Acute cholecystitis: Code(s): K81.0 - Acute cholecystitis Status: Acute Assessment and Plan: WBC improved this AM Patient tolerating clear liquids Continue IV antibiotics Await further resolution of symptoms before advancing diet (2) Sepsis: Qualifiers: Sepsis acute organ dysfunction status: without acute organ dysfunction Sepsis type: sepsis due to unspecified organism Qualified Code(s): A41.9 - Sepsis, unspecified organism Code(s): A41.9 - Sepsis, unspecified organism Status: Acute (3) Ventral hernia without obstruction or gangrene: Code(s): K43.9 - Ventral hernia without obstruction or gangrene Status: Acute (4) Non-ST elevation myocardial infarction (NSTEMI): Code(s): I21.4 - Non-ST elevation (NSTEMI) myocardial infarction Status: Acute (5) DM I (diabetes mellitus, type I): Qualifiers: Diabetes mellitus complication status: with neurologic complications Diabetes mellitus complication detail: with polyneuropathy Qualified Code(s): E10.42 - Type 1 diabetes mellitus with diabetic polyneuropathy Code(s): E10.9 - Type 1 diabetes mellitus without complications Status: Acute (6) Morbid obesity with BMI of 40.0-44.9, adult: Code(s): E66.01 - Morbid (severe) obesity due to excess calories; Z68.41 - Body mass index (BMI) 40.0-44.9, adult Status: Acute Subjective Subjective Date/Time Seen: 06/02/19 10:22 Pain improving. No fevers. Says she hasn't had a BM in 4-5 days. Exam GI: Inspection: other (CCX tube with blood tinged bilious output) GI Palp: Yes Tenderness to palpation present (GI) (RUQ) and No Guarding due to palpation present (GI) Objective Data Vital Signs Vital Signs: Vital Signs - 24 hr 06/01/19 12:53 06/01/19 14:40 06/01/19 16:00 Temperature Pulse Rate 94 103 H 93 Respiratory Rate 18 20 Blood Pressure 153/66 H 154/69 H Pulse Oximetry 99 100 06/01/19 16:25 06/01/19 18:00 06/01/19 20:00 Temperature 36.3 C L 36.3 C L Pulse Rate 94 86 103 H Respiratory Rate 16 20 Blood Pressure 135/66 144/62 H Pulse Oximetry 98 98 06/01/19 21:02 06/01/19 22:00 06/02/19 00:00 Temperature 36.3 C L Pulse Rate 101 H 46 L 83 Respiratory Rate 20 Blood Pressure 136/58 L Pulse Oximetry 99 06/02/19 02:00 06/02/19 04:00 06/02/19 06:00 Temperature 36.4 C L Pulse Rate 81 83 85 Respiratory Rate 22 H Blood Pressure 131/51 L Pulse Oximetry 97 06/02/19 08:37 06/02/19 09:37 Temperature 36.4 C L Pulse Rate 87 86 Respiratory Rate 22 H Blood Pressure 137/49 L Pulse Oximetry 96 Intake/Output Intake/Output: Intake & Output 05/30/19 05/31/19 06/01/19 06/02/19 23:59 23:59 23:59 23:59 Intake Total 1000 2200 2374 Output Total 300 150 55 Balance 700 2050 2319 Meds/Results Medications: Active Medications Generic Name Dose Route Start Last Admin Trade Name Freq PRN Reason Stop Dose Admin Alendronate Sodium 70 mg 06/02/19 06:30 06/02/19 06:11 Fosamax PO 70 mg WEEKLY@0630 [facility] Administration Amlodipine Besylate 10 mg 06/02/19 09:00 06/02/19 09:37 Norvasc PO 10 mg DAILY [facility] Administration Aspirin 81 mg 06/02/19 09:00 06/02/19 09:37 Aspirin Ec PO 81 mg DAILY [facility] Administration Bisacodyl 10 mg 06/01/19 17:20 Dulcolax Tab PO HS PRN Constipation Calcium Carbonate 500 mg 06/02/19 09:00 06/02/19 09:38 Oscal 500 Mg PO 07/02/19 09:01 500 mg DAILY [facility] Administration Cyanocobalamin 1,000 mcg 06/13/19 09:00 Vitamin B-12 Inj IM MONTHLY [facility] Demeclocycline HCl 300 mg 06/01/19 21:00 06/02/19 09:36 Demeclocycline Hcl PO 300 mg Q12HR [facility] Administration Dextrose 12.5 gm 06/01/19 01:25 Dextrose 50% Syringe IV PUSH PRN PRN Hypoglycemia Protocol Docusate Sodium 100 mg 06/01/19 15:50 Colace Capsule PO Q12H PRN
--- NOTE | 2019-06-02 11:15 | PM.PNCARD ---
Progress Note: A&P Assessment and Plan (1) Non-ST elevation myocardial infarction (NSTEMI): Code(s): I21.4 - Non-ST elevation (NSTEMI) myocardial infarction Status: Acute Assessment and Plan: She has slight elevation of troponin, echocardiogram showed normal left ventricular systolic function, will proceed with cardiac catheterization possibly tomorrow, based on the findings we will decide if she would need stent placements considering the need for surgery in the near future. (2) Pre-operative cardiovascular exam, new EKG abnormalities c/w ischemia: Code(s): Z01.810 - Encounter for preprocedural cardiovascular examination; R94.31 - Abnormal electrocardiogram [ECG] [EKG] Status: Acute Assessment and Plan: Since the surgery is possibly urgent, okay to proceed with that assuming she is taking metoprolol and taking aspirin, will follow-up closely and be on standby (3) Sepsis: Qualifiers: Sepsis acute organ dysfunction status: without acute organ dysfunction Sepsis type: sepsis due to unspecified organism Qualified Code(s): A41.9 - Sepsis, unspecified organism Code(s): A41.9 - Sepsis, unspecified organism Status: Acute (4) Acute cholecystitis: Code(s): K81.0 - Acute cholecystitis Status: Acute Assessment and Plan: She has been evaluated by General surgery, maybe going for gallbladder surgery versus drainage, okay to proceed with whatever procedure needed stenosis is urgent, will need cardiac catheterization whenever she is otherwise stable, and was started on aspirin and metoprolol, get echocardiogram to evaluate current status of left ventricular systolic function, look for any structural heart disease. Subjective Date/time seen: 06/02/19 11:15 She feels better today, she had drainage to to the gallbladder, no more nausea or vomiting and no more chest pain. Her white count is still elevated though. No chest pain, she still has mild shortness of breath on mild leg swelling Exam Narrative: Exam Narrative: Awake alert oriented x3 not in acute distress Neck is supple no obvious JVD, no carotid bruit Chest: Good air entry bilaterally, lungs are clear to auscultation and percussion bilaterally Cardiovascular: Regular rate and rhythm, 2/6 systolic murmur noted left sternal border Abdomen: Soft nontender bowel sounds positive Extremities: +1 edema has good pulses distally bilaterally Objective Data Vital Signs Vital Signs: Vital Signs - 24 hr 06/01/19 12:53 06/01/19 14:40 06/01/19 16:00 Temperature Pulse Rate 94 103 H 93 Respiratory Rate 18 20 Blood Pressure 153/66 H 154/69 H Pulse Oximetry 99 100 06/01/19 16:25 06/01/19 18:00 06/01/19 20:00 Temperature 36.3 C L 36.3 C L Pulse Rate 94 86 103 H Respiratory Rate 16 20 Blood Pressure 135/66 144/62 H Pulse Oximetry 98 98 06/01/19 21:02 06/01/19 22:00 06/02/19 00:00 Temperature 36.3 C L Pulse Rate 101 H 46 L 83 Respiratory Rate 20 Blood Pressure 136/58 L Pulse Oximetry 99 06/02/19 02:00 06/02/19 04:00 06/02/19 06:00 Temperature 36.4 C L Pulse Rate 81 83 85 Respiratory Rate 22 H Blood Pressure 131/51 L Pulse Oximetry 97 06/02/19 08:00 06/02/19 08:37 06/02/19 09:37 Temperature 36.4 C L Pulse Rate 87 87 86 Respiratory Rate 22 H Blood Pressure 137/49 L Pulse Oximetry 96 06/02/19 10:00 Temperature Pulse Rate 82 Respiratory Rate Blood Pressure Pulse Oximetry Intake/Output Intake/Output: Intake & Output 05/30/19 05/31/19 06/01/19 06/02/19 23:59 23:59 23:59 23:59 Intake Total 1000 2200 3094 Output Total 300 150 55 Balance 700 2050 3039 Meds/Results Medications: Active Medications Generic Name Dose Route Start Last Admin Trade Name Kodyq PRN Reason Stop Dose Admin Alendronate Sodium 70 mg 06/02/19 06:30 06/02/19 06:11 Fosamax PO 70 mg WEEKLY@0630 [facility] Administration Amlodipine Besylate 10 mg 06/02/19 09
[2019-06-02] MEDS: BISACODYL 10 MG SUPPOSITORY RECTAL (11:59)
[2019-06-02 12:03] LABS: Glucose Point of Care 280 (65-105)
[2019-06-02] MEDS: HEPARIN SODIUM 5,000 UNITS/ML VIAL 4000 UNITS IV PUSH (12:14)
[2019-06-02] MEDS: HEPARIN SOD/D5W 100 UNITS/ML 25,000 UNITS/250 ML BAG 10 UNITS IV CONT (12:14)
[2019-06-02 13:05] LABS: Basophils Percent Auto 0.1 % (0.2-1.2); Hematocrit 30.9 % (37.0-47.0); Hemoglobin 10.4 g/dL (12.0-15.0); Immature Granulocyte Absolute 0.05 K/mm3 (0.00-0.031); Immature Granulocyte Percent A 0.4 % (0-0.5); Lymphocytes Absolute Auto 2.74 K/mm3 (0.9-3.2); Lymphocytes Percent Auto 19.3 % (18.3-44.2); Mean Corpuscular HGB Conc 33.7 g/dl (32-36); Mean Corpuscular Hemoglobin 30.9 pg (26-34); Mean Corpuscular Volume 91.7 fl (80-100); Mean Platelet Volume 11.3 fl (7.4-10.4); Monocytes Absolute Auto 0.7 K/mm3 (0.1-0.6); Neutrophils Absolute Auto 10.7 K/mm3 (1.3-6.7); Neutrophils Percent Auto 75.2 % (45.5-73.1); Platelet Count Result 222 k/mm3 (150-375); Red Blood Count 3.37 M/mm3 (4.2-5.4); Red Cell Distribution Width 12.3 % (11.5-14.5); White Blood Count 14.2 K/mm3 (4.5-10.0)
[2019-06-02 13:16] LABS: INR 1.2
[2019-06-02 13:17] LABS: Cholesterol 180 mg/dL (0-200); HDL Direct 56 mg/dL; Triglycerides 67 mg/dL (<150)
[2019-06-02 13:28] LABS: LDL Cholesterol Direct 69 mg/dL
[2019-06-02 13:38] LABS: Partial Thromboplastin Time 163.7 SECONDS (22.3-36.8)
--- NOTE | 2019-06-02 16:38 | PM.IMPN ---
Progress Note: A&P Assessment and Plan (1) Acute cholecystitis: Code(s): K81.0 - Acute cholecystitis Status: Acute Assessment and Plan: 06/02/19 16:38 Miladys Felipe is a 68 year old female Currently [facility] presented emergency department morbidly obese with history of diabetes with a complaint of abdominal pain nausea or vomiting and constipation CT scan of abdomen showed acute cholecystitis with minimal gas in the gallbladder and likely at the cystic duct which could be related to gas-forming organism or an enterobiliary fistula., also has a non STEMI and hyperglycemia, patient is seen by general surgery recommended conservative management with 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 and with elevated tropes and hyperglycemia patient is a very high risk of surgery and recommended ultrasound-guided cholecystostomy tube by intervention radiologist, patient also seen by spring forger patient has a mildly elevated tropes does not recommend ischemic workup at the present time cardiac echo is ordered further assess structural abnormality of the heart, we have started the patient on home broad-spectrum antibiotic will gently hydrate the patient monitor patient blood sugar is patient's symptoms stabilized see general surgery will reassess with a recommendation with possible cholecystectomy, today patient is feeling better, pain has improved, able to tolerate clear liquids, cholecystostomy draining serosanguineous less than 20cc, seen by surgery recommending conservative management advanced her diet as tolerated once clinically stable will need cholecystectomy, patient seen by spring forger recommending cardiac catheterization which is scheduled for tomorrow, (2) Non-ST elevation myocardial infarction (NSTEMI): Code(s): I21.4 - Non-ST elevation (NSTEMI) myocardial infarction Status: Acute Assessment and Plan: Seen by spring forger cardiac echo is essentially normal patient is scheduled cardiac catheterization tomorrow further evaluate non STEMI (3) DM I (diabetes mellitus, type I): Qualifiers: Diabetes mellitus complication status: with neurologic complications Diabetes mellitus complication detail: with polyneuropathy Qualified Code(s): E10.42 - Type 1 diabetes mellitus with diabetic polyneuropathy Code(s): E10.9 - Type 1 diabetes mellitus without complications Status: Acute Assessment and Plan: Will continue home regimen and monitor with sliding scale (4) H/O: HTN (hypertension): Code(s): Z86.79 - Personal history of other diseases of the circulatory system Status: Acute Assessment and Plan: Will continue home regimen and monitor Subjective Date/time seen: 06/02/19 16:38 Miladys Felipe is a 68 year old female Currently [facility] presented emergency department morbidly obese with history of diabetes with a complaint of abdominal pain nausea or vomiting and constipation CT scan of abdomen showed acute cholecystitis with minimal gas in the gallbladder and likely at the cystic duct which could be related to gas-forming organism or an enterobiliary fistula., also has a non STEMI and hyperglycemia, patient is seen by general surgery recommended conservative management with 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 and with elevated tropes and hyperglycemia patient is a very high risk of surgery and recommended ultrasound-guided cholecystostomy tube by intervention radiologist, patient also seen by spring forger patient has a mildly elevated tropes does not recommend ischemic workup at the present time cardiac echo is ordered further assess structural abnormality of the heart, we have started the patient on home broad-spectrum antibiotic will gently hydrate the patient monitor patient blood sugar is patient's symptoms stabilized see general surgery will reassess with a recommendation with possible cholecystectomy, today patient is feeling better, pain has imp
[2019-06-02 17:21] LABS: Glucose Point of Care 170 (65-105)
[2019-06-02 18:34] LABS: Partial Thromboplastin Time 58.9 SECONDS (22.3-36.8)
[2019-06-02] MEDS: HEPARIN SODIUM 5,000 UNITS/ML VIAL 3500 UNITS IV PUSH (18:42)
[2019-06-02] MEDS: risperiDONE 1 MG TABLET PO (20:10)
[2019-06-02] MEDS: INSULIN GLARGINE (*BKC) 100 UNITS/ML 28 UNITS SUB-Q (20:16)
[2019-06-02 21:02] LABS: Glucose Point of Care 454 (65-105)
[2019-06-02] MEDS: INSULIN ASPART (*BKC) 100 UNITS/ML 8 UNITS SUB-Q (22:22)
[2019-06-02 22:28] LABS: Glucose Point of Care 431 (65-105)
[2019-06-03] VITALS (22 sets, daily range): BP systolic 117–148; BP diastolic 42–62; PULSE 62–86; RESP 14–22; TEMP 36.3–36.7; O2SAT 97–100
[2019-06-03 01:25] LABS: Partial Thromboplastin Time 156.3 SECONDS (22.3-36.8)
[2019-06-03 04:58] LABS: Hematocrit 27.9 % (37.0-47.0); Hemoglobin 9.1 g/dL (12.0-15.0); Immature Granulocyte Absolute 0.03 K/mm3 (0.00-0.031); Immature Granulocyte Percent A 0.3 % (0-0.5); Lymphocytes Absolute Auto 3.27 K/mm3 (0.9-3.2); Lymphocytes Percent Auto 35.6 % (18.3-44.2); Mean Corpuscular HGB Conc 32.6 g/dl (32-36); Mean Corpuscular Volume 92.1 fl (80-100); Mean Platelet Volume 11.7 fl (7.4-10.4); Monocytes Absolute Auto 0.8 K/mm3 (0.1-0.6); Monocytes Percent Auto 8.4 % (2.6-8.5); Neutrophils Absolute Auto 5.1 K/mm3 (1.3-6.7); Neutrophils Percent Auto 55.7 % (45.5-73.1); Platelet Count Result 202 k/mm3 (150-375); Red Blood Count 3.03 M/mm3 (4.2-5.4); Red Cell Distribution Width 12.1 % (11.5-14.5); White Blood Count 9.2 K/mm3 (4.5-10.0)
[2019-06-03] MEDS: LEVOTHYROXINE SODIUM 112 MCG TABLET PO (05:06)
[2019-06-03] MEDS: metroNIDAZOLE 500 MG/ISO 100ML 500 MG/100 ML BAG 100 MG IVPB ×3 (05:06→22:03)
[2019-06-03 05:26] LABS: Alanine Aminotransferase 17 U/L (4-35); Albumin Level 2.9 g/dL (3.5-5.1); Alkaline Phosphatase 61 U/L (38-126); Aspartate Amino Transferase 16 U/L (14-36); Bilirubin,Total 0.2 mg/dL (0.2-1.3); Blood Urea Nitrogen 21 mg/dL (7-17); Carbon Dioxide 26 mmol/L (22-30); Chloride 98 mmol/L (98-107); Estimated CRCL calculation 103 ml/min; Estimated Glomerular Filt Rate > 60; Glucose 59 mg/dL (65-105); Potassium 3.1 mmol/L (3.4-5.0); Sodium 131 mmol/L (137-145)
[2019-06-03] MEDS: DEXTROSE 50% 25 GM/50 ML SYRINGE IV PUSH (05:33)
[2019-06-03 06:07] LABS: Glucose Point of Care 141 (65-105)
[2019-06-03] MEDS: FAMOTIDINE 20 MG TABLET PO (08:46)
[2019-06-03] MEDS: ASPIRIN 81 MG ENTERIC TABLET PO (08:47)
[2019-06-03] MEDS: SIMETHICONE 125 MG CHEW TAB PO ×3 (08:47→20:37)
[2019-06-03] MEDS: ESCITALOPRAM OXALATE 10 MG TABLET 20 MG PO (08:47)
[2019-06-03] MEDS: AMLODIPINE BESYLATE 5 MG TABLET 10 MG PO (08:47)
[2019-06-03] MEDS: CHOLECALCIFEROL 1,000 UNIT TABLET 1000 UNITS PO ×2 (08:48→16:15)
[2019-06-03] MEDS: MECLIZINE HCL 12.5 MG TABLET PO ×2 (08:48→16:16)
[2019-06-03] MEDS: MULTIVITAMINS /C LUTEIN (CENTRUM SILVER) TABLET *BKC 1 TAB PO (08:49)
[2019-06-03] MEDS: PANTOPRAZOLE SODIUM IV 40 MG VIAL IV PUSH ×2 (08:49→20:33)
[2019-06-03] MEDS: METOPROLOL TARTRATE 25 MG TABLET PO ×2 (08:49→20:37)
[2019-06-03] MEDS: SODIUM CHLORIDE 0.9% IV 1,000 ML 100 ML IV CONT ×3 (09:29→22:05)
[2019-06-03] MEDS: DEMECLOCYCLINE HCL 150 MG TABLET 300 MG PO ×2 (09:31→20:34)
[2019-06-03] MEDS: CALCIUM CARBONATE (OSCAL) 500 MG TABLET PO (09:31)
--- NOTE | 2019-06-03 12:34 | WPDMODSED ---
Moderate Sedation Note-Pt Data Patient Data Allergies Allergy/AdvReac Type Severity Reaction Status Date / Time chlorpromazine Allergy Unknown Verified 02/13/12 13:47 lactase Allergy Unknown Verified 06/14/11 15:08 levofloxacin Allergy Unknown Verified 02/13/12 13:47 Penicillins Allergy Unknown Verified 02/13/12 13:46 Sulfa (Sulfonamide Allergy Unknown Verified 06/15/18 00:38 Antibiotics) sulfanilamide Allergy Unknown Verified 02/13/12 13:46 thiothixene Allergy Unknown Verified 06/15/18 00:38 CHLORPROMAZINE HCL Allergy Unknown Uncoded 06/15/18 00:38 THIOTHIXENE HCL Allergy Unknown Uncoded 06/15/18 00:38 Home Medications Medication Instructions Recorded Confirmed Type alendronate 70 mg PO WEEKLY 06/01/19 06/01/19 History amlodipine 10 mg PO DAILY 06/01/19 06/01/19 History aspirin 81 mg PO DAILY 06/01/19 06/01/19 History bisacodyl [Dulcolax (bisacodyl)] 10 mg PO HS PRN 06/01/19 06/01/19 History calcium carbonate-vitamin D3 1 tablet PO DAILY 06/01/19 06/01/19 History [Calcium 600 + D(3)] cholecalciferol (vitamin D3) 1,000 unit PO BID 06/01/19 06/01/19 History cyanocobalamin (vitamin B-12) 1,000 mcg IM MONTHLY 06/01/19 06/01/19 History demeclocycline 300 mg PO Q12H 06/01/19 06/01/19 History escitalopram oxalate 20 mg PO DAILY 06/01/19 06/01/19 History insulin aspart U-100 [Novolog 1 sliding scale dose SUBCUT DAILY 06/01/19 06/01/19 History U-100 Insulin aspart] insulin aspart U-100 [Novolog 1 sliding scale dose SUBCUT DAILY 06/01/19 06/01/19 History U-100 Insulin aspart] insulin aspart U-100 [Novolog 4 unit SUBCUT 06/01/19 History U-100 Insulin aspart] insulin glargine [Lantus U-100 28 unit SUBCUT HS 06/01/19 06/01/19 History Insulin] levothyroxine 112 mcg PO DAILY 06/01/19 06/01/19 History lidocaine HCl [Aspercreme 1 applic TOPICAL QID PRN 06/01/19 06/02/19 History (lidocaine)] liothyronine [Cytomel] 5 mcg PO BID 06/01/19 06/01/19 History meclizine 12.5 mg PO TID 06/01/19 06/01/19 History melatonin 1 mg PO HS PRN 06/01/19 06/01/19 History [id number]-[id number]-FA-vit K 1 tablet PO DAILY 06/01/19 06/01/19 History [Adults Multivitamin] nystatin 1 applic TOPICAL BID PRN 06/01/19 06/01/19 History polyethylene glycol 3350 [Miralax] 17 g PO BID 06/01/19 06/01/19 History ranitidine HCl 150 mg PO DAILY PRN 06/01/19 06/01/19 History risperidone 1 mg PO HS 06/01/19 06/01/19 History sennosides-docusate sodium [Senna 2 tab-cap PO BID 06/01/19 06/01/19 History Plus] Current Medications: Active Medications Alendronate Sodium (Fosamax) 70 mg PO WEEKLY@0630 [facility] Last Admin: 06/02/19 06:11 Dose: 70 mg Documented by: Amlodipine Besylate (Norvasc) 10 mg PO DAILY [facility] Last Admin: 06/03/19 08:47 Dose: 10 mg Documented by: Aspirin (Aspirin Ec) 81 mg PO DAILY [facility] Last Admin: 06/03/19 08:47 Dose: 81 mg Documented by: Bisacodyl (Dulcolax Tab) 10 mg PO HS PRN PRN Reason: Constipation Calcium Carbonate (Oscal 500 Mg) 500 mg PO DAILY [facility] Stop: 07/02/19 09:01 Last Admin: 06/03/19 09:31 Dose: 500 mg Documented by: Cyanocobalamin (Vitamin B-12 Inj) 1,000 mcg IM MONTHLY [facility] Demeclocycline HCl (Demeclocycline Hcl) 300 mg PO Q12HR [facility] Last Admin: 06/03/19 09:31 Dose: 300 mg Documented by: Dextrose (Dextrose 50% Syringe) 12.5 gm IV PUSH PRN PRN; Protocol PRN Reason: Hypoglycemia Last Admin: 06/03/19 05:33 Dose: 12.5 gm Documented by: Docusate Sodium (Colace Capsule) 100 mg PO Q12H PRN PRN Reason: Constipation Escitalopram Oxalate (Lexapro) 20 mg PO DAILY [facility] Last Admin: 06/03/19 08:47 Dose: 20 mg Documented by: Famotidine (Pepcid) 20 mg PO DAILY PRN PRN Reason: Acid Reflux Last Admin: 06/03/19 08:46 Dose: 20 mg Documented by: Glucagon (Glucagon For Inj) 1 mg IM PRN PRN; Protocol PRN Reason: Hypoglycemia Glucose (Glutose 15) 15 gm PO PRN PRN; Protocol PRN Reason: Hypoglycemia Heparin Sodium (Porcine) (Heparin Sodium) 4,000 units IV PUSH PRN PRN PRN Reason: aPTT le
--- NOTE | 2019-06-03 12:34 | PM.PNCARD ---
Progress Note: A&P Assessment and Plan (1) Non-ST elevation myocardial infarction (NSTEMI): Code(s): I21.4 - Non-ST elevation (NSTEMI) myocardial infarction Status: Acute Assessment and Plan: She has slight elevation of troponin, echocardiogram showed normal left ventricular systolic function, will proceed with cardiac catheterization possibly, based on the findings we will decide if she would need stent placements considering the need for surgery in the near future. Procedure discussed with patient, risks, benefits, and alternative diagnostic measure with explained (2) Pre-operative cardiovascular exam, new EKG abnormalities c/w ischemia: Code(s): Z01.810 - Encounter for preprocedural cardiovascular examination; R94.31 - Abnormal electrocardiogram [ECG] [EKG] Status: Acute Assessment and Plan: Since the surgery is possibly urgent, okay to proceed with that assuming she is taking metoprolol and taking aspirin, will follow-up closely and be on standby (3) Sepsis: Qualifiers: Sepsis acute organ dysfunction status: without acute organ dysfunction Sepsis type: sepsis due to unspecified organism Qualified Code(s): A41.9 - Sepsis, unspecified organism Code(s): A41.9 - Sepsis, unspecified organism Status: Acute (4) Acute cholecystitis: Code(s): K81.0 - Acute cholecystitis Status: Acute Assessment and Plan: She has been evaluated by General surgery, maybe going for gallbladder surgery versus drainage, okay to proceed with whatever procedure needed stenosis is urgent, will need cardiac catheterization whenever she is otherwise stable, and was started on aspirin and metoprolol, get echocardiogram to evaluate current status of left ventricular systolic function, look for any structural heart disease. Subjective Date/time seen: 06/03/19 12:34 Feels okay today, no more chest pain no significant shortness of breath Exam Narrative: Exam Narrative: Awake alert oriented x3 not in acute distress Neck is supple no obvious JVD, no carotid bruit Chest: Good air entry bilaterally, lungs are clear to auscultation and percussion bilaterally Cardiovascular: Regular rate and rhythm, 2/6 systolic murmur noted left sternal border Abdomen: Soft nontender bowel sounds positive Extremities: +1 edema has good pulses distally bilaterally Objective Data Vital Signs Vital Signs: Vital Signs - 24 hr 06/02/19 12:45 06/02/19 14:00 06/02/19 16:00 Temperature 36.6 C Pulse Rate 66 70 71 Respiratory Rate 22 H Blood Pressure 133/53 L Pulse Oximetry 98 06/02/19 17:56 06/02/19 17:57 06/02/19 19:36 Temperature 36.9 C 36.1 C L Pulse Rate 68 74 77 Respiratory Rate 22 H 20 Blood Pressure 135/52 L 110/57 L Pulse Oximetry 97 99 06/02/19 20:00 06/02/19 20:09 06/02/19 22:00 Temperature Pulse Rate 76 71 64 Respiratory Rate Blood Pressure Pulse Oximetry 06/03/19 00:00 06/03/19 02:00 06/03/19 04:00 Temperature 36.6 C 36.3 C L Pulse Rate 64 63 64 Respiratory Rate 18 16 Blood Pressure 130/43 L 136/51 L Pulse Oximetry 98 100 06/03/19 06:00 06/03/19 08:00 06/03/19 10:00 Temperature Pulse Rate 65 69 72 Respiratory Rate Blood Pressure Pulse Oximetry 06/03/19 12:00 Temperature Pulse Rate 66 Respiratory Rate Blood Pressure Pulse Oximetry Intake/Output Intake/Output: Intake & Output 05/31/19 06/01/19 06/02/19 06/03/19 23:59 23:59 23:59 23:59 Intake Total 1000 2200 5794 1150 Output Total 834 031 4804 500 Balance 700 2050 4659 650 Meds/Results Medications: Active Medications Generic Name Dose Route Start Last Admin Trade Name Kodyq PRN Reason Stop Dose Admin Alendronate Sodium 70 mg 06/02/19 06:30 06/02/19 06:11 Fosamax PO 70 mg WEEKLY@0630 [facility] Administration Amlodipine Besylate 10 mg 06/02/19 09:00 06/03/19 08:47 Norvasc PO 10 mg DAILY [facility] Administration Aspirin 81 mg
--- NOTE | 2019-06-03 13:40 | P.PCNCC_ITS ---
Cardiac Cath Procedure Note Date of procedure:: 06/03/19 Performing physician:: Sheng Faria MD Procedure: 1. Left heart catheterization, selective coronary angiogram. 2. Left ventricular angiogram. 3. Conscious sedation. Starting time is 1:10 p.m. ending time is 1:35 p.m. 4. Angio-Seal device for arterial hemostasis Supervisor Rolling Room: Dr. Sheng Faria Complications: None. Sedation: Conscious sedation, local anesthesia, using 1 mg of Versed said, 25 mcg of fentanyl, and using 1% lidocaine for local anesthesia. Technique: After informed consent was obtained from patient, was brought to the laborer syrup machine, put in the laborer syrup machine table, prepped and draped in usual sterile fashion. Five Indonesian sheath was inserted into the right common femoral artery, through the sheath 5 Indonesian JL4 catheter inserted, advanced to the left coronary artery, left coronary artery angiogram was obtained. The catheter was exchanged over guidewire into a 5 Indonesian JR4 catheter, advanced to the right coronary artery, right coronary artery angiogram was obtained. The catheter then was exchanged over guidewire into this 5 Indonesian pigtail catheter, advanced to left ventricle, left ventricular angiogram was obtained. The catheter then was pulled, the sheath was pulled applying Angio-Seal device for arterial hemostasis. Patient tolerated the procedure no complication, taken from the laborer syrup machine to his room in stable condition stable vital signs. Hemodynamics: aortic pressure 124/60 . LV pressure 124/04 with LVEDP of 24 mmHg Angiographic findings: Left main: Medium size artery no significant disease or stenosis. Lad medium size artery showed mid LAD 40% narrowing followed by 50% narrowing in the mid section. Left circumflex artery, medium size artery, no significant disease or stenosis. RCA: Dominant vessel, showed mid RCA significant irregularity with a 50% disease. LV: Normal size left ventricle with normal left ventricular systolic function. Summary: Mild coronary artery disease, normal left ventricular systolic function. Recommendation: Maximum medical treatment. Risk factor modification.
--- NOTE | 2019-06-03 14:01 | PM.PNGS ---
Progress Note: A&P Assessment and Plan (1) Acute cholecystitis: Code(s): K81.0 - Acute cholecystitis Status: Acute Assessment and Plan: WBC continues to improve and patient seems to be symptomatically improving Patient planned for cardiac cath today. Okay to place her back on a liquid diet post-cath Continue IV antibiotics Continue to monitor cholecystostomy tube output. The drainage has become more bloody but still a low output. Heparin drip is now off. Will continue to monitor. (2) Sepsis: Qualifiers: Sepsis acute organ dysfunction status: without acute organ dysfunction Sepsis type: sepsis due to unspecified organism Qualified Code(s): A41.9 - Sepsis, unspecified organism Code(s): A41.9 - Sepsis, unspecified organism Status: Acute (3) Ventral hernia without obstruction or gangrene: Code(s): K43.9 - Ventral hernia without obstruction or gangrene Status: Acute (4) Non-ST elevation myocardial infarction (NSTEMI): Code(s): I21.4 - Non-ST elevation (NSTEMI) myocardial infarction Status: Acute (5) DM I (diabetes mellitus, type I): Qualifiers: Diabetes mellitus complication status: with neurologic complications Diabetes mellitus complication detail: with polyneuropathy Qualified Code(s): E10.42 - Type 1 diabetes mellitus with diabetic polyneuropathy Code(s): E10.9 - Type 1 diabetes mellitus without complications Status: Acute (6) Morbid obesity with BMI of 40.0-44.9, adult: Code(s): E66.01 - Morbid (severe) obesity due to excess calories; Z68.41 - Body mass index (BMI) 40.0-44.9, adult Status: Acute Subjective Subjective Date/Time Seen: 06/03/19 12:20 Patient reports: no new complaints, feels better and pain is less Interval history: Patient seen and examined. Patient reports feeling well today. Heparin drip has been turned off per the nurse for planned cardiac cath today. Denies nausea, bloating, or vomiting. Reports some mild abdominal pain in RUQ near the percutaneous cholecystostomy drain. Reports constipation with no BM in 5 days. No other complaints at this time. Review of Systems Review of Systems: All systems reviewed & are unremarkable except as noted in HPI and below Exam Const: General: alert; No acute distress Orientation/consciousness: patient oriented x3 GI: Inspection: normal to inspection, visible herniation ( soft, reducible, ventral midline hernia above the umbilicus) and other (Cholecystostomy tube with bloody output) GI Palp: Yes abdominal tenderness (RUQ, lower abdomen), Yes Soft to palpation, No Guarding due to palpation present (GI) and No Rebound tenderness present Auscultation: normal bowel sounds Neuro: General: moves all extremities and no focal motor deficits Objective Data Vital Signs Vital Signs: Vital Signs - 24 hr 06/02/19 16:00 06/02/19 17:56 06/02/19 17:57 Temperature 36.9 C Pulse Rate 71 68 74 Respiratory Rate 22 H Blood Pressure 135/52 L Pulse Oximetry 97 06/02/19 19:36 06/02/19 20:00 06/02/19 20:09 Temperature 36.1 C L Pulse Rate 77 76 71 Respiratory Rate 20 Blood Pressure 110/57 L Pulse Oximetry 99 06/02/19 22:00 06/03/19 00:00 06/03/19 02:00 Temperature 36.6 C Pulse Rate 64 64 63 Respiratory Rate 18 Blood Pressure 130/43 L Pulse Oximetry 98 06/03/19 04:00 06/03/19 06:00 06/03/19 08:00 Temperature 36.3 C L Pulse Rate 64 65 69 Respiratory Rate 16 Blood Pressure 136/51 L Pulse Oximetry 100 06/03/19 10:00 06/03/19 12:00 Temperature 36.3 C L Pulse Rate 72 62 Respiratory Rate 22 H Blood Pressure 117/42 L Pulse Oximetry 100 Intake/Output Intake/Output: Intake & Output 05/31/19 06/01/19 06/02/19 06/03/19 23:59 23:59 23:59 23:59 Intake Total 1000 2200 5794 1400 Output Total 993 839 8085 500 Balance 700 2050 4650 900 Meds/Results Medications: Active Medications Generic Name Dose Route Star
--- NOTE | 2019-06-03 15:29 | SUR.PHASEII ---
1415 IMPORTANCE OF BEDREST AND RESTRICTIONS REVIEWED WITH PATIENT AND PTS FAMILY, THEY ALL VERBALIZE UNDERSTANDING, REINFORCED NEEDED. R GROIN DRESSING REMAINS C/D/I, PEDAL PULSE STRONG VIA DOPPLER. 1430 CALLED AND SPOKE WITH YVONNE INTERACTIVE [employer] DESIGNER REGARDING DIET, TELEPHONE ORDER FOR FULL LIQUID DIET ENTERED PER YVONNE. PT PLACED ON BEDPAN X3 WITHOUT DIFFICULTY.
[2019-06-03] MEDS: SODIUM CHLORIDE 0.9% IV 1,000 ML 125 ML IV CONT (15:39)
[2019-06-03] MEDS: SENNA/DOCUSATE SODIUM TABLET 2 TAB PO (16:15)
[2019-06-03 16:22] LABS: Glucose Point of Care 111 (65-105)
--- NOTE | 2019-06-03 18:55 | PM.IMPN ---
Progress Note: A&P Assessment and Plan (1) Acute cholecystitis: Code(s): K81.0 - Acute cholecystitis Status: Acute Assessment and Plan: 06/03/19 18: 16:38 Miladys Felipe is a 68 year old female Currently residing at the care home presented emergency department morbidly obese with history of diabetes with a complaint of abdominal pain nausea or vomiting and constipation CT scan of abdomen showed acute cholecystitis with minimal gas in the gallbladder and likely at the cystic duct which could be related to gas-forming organism or an enterobiliary fistula., also has a non STEMI and hyperglycemia, patient is seen by general surgery recommended conservative management with 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mality of the heart, we have started the patient on home broad-spectrum antibiotic will gently hydrate the patient monitor patient blood sugar is patient's symptoms stabilized see general surgery will reassess with a recommendation with possible cholecystectomy, today patient is feeling better, pain has improved, able to tolerate clear liquids, cholecystostomy draining serosanguineous less than 20cc, seen by surgery recommending conservative management advanced her diet as tolerated once clinically stable will need cholecystectomy, and needs cardiac clearance, today patient was taken to the cardiac lab and had a cardiac catheterization and not show significant coronary artery disease and did not need any stents medical management is recommended, patient is cleared for cholecystectomy possibly tomorrow, currently present denies any abdominal pain nausea or vomiting chest pain palpitation fever or chills (2) Non-ST elevation myocardial infarction (NSTEMI): Code(s): I21.4 - Non-ST elevation (NSTEMI) myocardial infarction Status: Acute Assessment and Plan: Seen by diamond grader cardiac echo is essentially normal patient is scheduled cardiac catheterization tomorrow further evaluate non STEMI (3) DM I (diabetes mellitus, type I): Qualifiers: Diabetes mellitus complication status: with neurologic complications Diabetes mellitus complication detail: with polyneuropathy Qualified Code(s): E10.42 - Type 1 diabetes mellitus with diabetic polyneuropathy Code(s): E10.9 - Type 1 diabetes mellitus without complications Status: Acute Assessment and Plan: Will continue home regimen and monitor with sliding scale (4) H/O: HTN (hypertension): Code(s): Z86.79 - Personal history of other diseases of the circulatory system Status: Acute Assessment and Plan: Will continue home regimen and monitor Subjective Date/time seen: 06/03/19 18: 16:38 Miladys Felipe is a 68 year old female Currently residing at the care home presented emergency department morbidly obese with history of diabetes with a complaint of abdominal pain nausea or vomiting and constipation CT scan of abdomen showed acute cholecystitis with minimal gas in the gallbladder and likely at the cystic duct which could be related to gas-forming organism or an enterobiliary fistula., also has a non STEMI and hyperglycemia, patient is seen by general surgery recommended conservative management with 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
[2019-06-03 20:13] LABS: Glucose Point of Care 251 (65-105)
[2019-06-03] MEDS: risperiDONE 1 MG TABLET PO (20:34)
[2019-06-03] MEDS: INSULIN GLARGINE (*BKC) 100 UNITS/ML 28 UNITS SUB-Q (20:38)
[2019-06-04] VITALS (9 sets, daily range): BP systolic 118–140; BP diastolic 60–66; PULSE 67–74; RESP 16–20; TEMP 36.6–37; O2SAT 97–99
[2019-06-04] MEDS: metroNIDAZOLE 500 MG/ISO 100ML 500 MG/100 ML BAG 100 MG IVPB (05:30)
[2019-06-04 06:07] LABS: Hematocrit 29.6 % (37.0-47.0); Hemoglobin 9.6 g/dL (12.0-15.0); Mean Corpuscular HGB Conc 32.4 g/dl (32-36); Mean Corpuscular Hemoglobin 30.1 pg (26-34); Mean Corpuscular Volume 92.8 fl (80-100); Mean Platelet Volume 12.9 fl (7.4-10.4); Platelet Count Result 203 k/mm3 (150-375); Red Blood Count 3.19 M/mm3 (4.2-5.4); Red Cell Distribution Width 12.3 % (11.5-14.5); White Blood Count 6.1 K/mm3 (4.5-10.0)
[2019-06-04 06:22] LABS: Alanine Aminotransferase 15 U/L (4-35); Albumin Level 2.8 g/dL (3.5-5.1); Alkaline Phosphatase 65 U/L (38-126); Aspartate Amino Transferase 17 U/L (14-36); Bilirubin,Total 0.2 mg/dL (0.2-1.3); Blood Urea Nitrogen 8 mg/dL (7-17); Carbon Dioxide 24 mmol/L (22-30); Chloride 99 mmol/L (98-107); Estimated CRCL calculation 122 ml/min; Estimated Glomerular Filt Rate > 60; Glucose 89 mg/dL (65-105); Potassium 3.2 mmol/L (3.4-5.0); Sodium 133 mmol/L (137-145)
--- NOTE | 2019-06-04 08:12 | WPDCDIQUERY2 ---
CDI Query Clarification Request -Sepsis documented by EDP, Dr Faria, and Dr Figueroa. No mention of sepsis by hospitalist. - On arrival T 100, P 117, RR 26 and WBC 21.7. Acute cholecystitis documented. Please clarify if sepsis was ruled in or ruled out. <Miladys Bradley RN - Last Filed: 06/04/19 08:15>
--- NOTE | 2019-06-04 08:23 | PM.PNCARD ---
Progress Note: A&P Assessment and Plan (1) Non-ST elevation myocardial infarction (NSTEMI): Code(s): I21.4 - Non-ST elevation (NSTEMI) myocardial infarction Status: Acute Assessment and Plan: She had cardiac catheterization yesterday with mild disease (2) Pre-operative cardiovascular exam, new EKG abnormalities c/w ischemia: Code(s): Z01.810 - Encounter for preprocedural cardiovascular examination; R94.31 - Abnormal electrocardiogram [ECG] [EKG] Status: Acute Assessment and Plan: She had cardiac catheterization yesterday with mild disease and normal left ventricular systolic function, she is okay to proceed with surgery whenever is needed (3) Sepsis: Qualifiers: Sepsis acute organ dysfunction status: without acute organ dysfunction Sepsis type: sepsis due to unspecified organism Qualified Code(s): A41.9 - Sepsis, unspecified organism Code(s): A41.9 - Sepsis, unspecified organism Status: Acute (4) Acute cholecystitis: Code(s): K81.0 - Acute cholecystitis Status: Acute Assessment and Plan: Treatment per surgical team, okay to proceed with surgery when needed Additional Plan Thank you for allowing me to participate in this patient's care, I will be following up with you. Please do not hesitate to call me for any other inquiry Subjective Date/time seen: 06/04/19 08:23 She feels well today, had cardiac catheterization yesterday, now with no bleeding no hematoma and no pain Exam Narrative: Exam Narrative: Awake alert oriented x3 not in acute distress Neck is supple no obvious JVD, no carotid bruit Chest: Good air entry bilaterally, lungs are clear to auscultation and percussion bilaterally Cardiovascular: Regular rate and rhythm, 2/6 systolic murmur noted left sternal border Abdomen: Soft nontender bowel sounds positive Extremities: +1 edema has good pulses distally bilaterally Objective Data Vital Signs Vital Signs: Vital Signs - 24 hr 06/03/19 10:00 06/03/19 12:00 06/03/19 14:00 Temperature 36.3 C L 36.7 C Pulse Rate 72 62 75 Respiratory Rate 22 H 18 Blood Pressure 117/42 L 132/53 L Pulse Oximetry 100 100 06/03/19 14:15 06/03/19 14:30 06/03/19 14:45 Temperature Pulse Rate 78 79 75 Respiratory Rate 16 15 14 Blood Pressure 143/58 H 146/55 H 148/56 H Pulse Oximetry 100 100 100 06/03/19 15:42 06/03/19 16:00 06/03/19 16:45 Temperature 36.4 C 36.3 C L Pulse Rate 76 80 78 Respiratory Rate 16 20 Blood Pressure 147/47 H 142/57 H Pulse Oximetry 100 100 06/03/19 17:45 06/03/19 17:54 06/03/19 18:50 Temperature 36.6 C 36.6 C Pulse Rate 79 81 80 Respiratory Rate 16 18 Blood Pressure 144/46 H 138/62 Pulse Oximetry 97 100 06/03/19 19:33 06/03/19 20:00 06/03/19 20:37 Temperature 36.7 C Pulse Rate 82 84 86 Respiratory Rate 20 Blood Pressure 143/50 H Pulse Oximetry 100 06/03/19 22:00 06/03/19 23:51 06/04/19 00:00 Temperature 36.7 C Pulse Rate 73 80 69 Respiratory Rate 18 Blood Pressure 140/55 L Pulse Oximetry 99 06/04/19 02:00 06/04/19 04:00 06/04/19 06:00 Temperature 36.6 C Pulse Rate 71 67 68 Respiratory Rate 18 Blood Pressure 118/66 Pulse Oximetry 97 06/04/19 07:05 Temperature 36.6 C Pulse Rate 68 Respiratory Rate 20 Blood Pressure 120/60 Pulse Oximetry 97 Intake/Output Intake/Output: Intake & Output 06/01/19 06/02/19 06/03/19 06/04/19 23:59 23:59 23:59 23:59 Intake Total 2200 5794 4840 1169 Output Total 150 1135 4200 1300 Balance 2050 7528 640 131 Meds/Results Medications: Active Medications Generic Name Dose Route Start Last Admin Trade Name Freq PRN Reason Stop Dose Admin Alendronate Sodium 70 mg 06/02/19 06:30 06/02/19 06:11 Fosamax PO 70 mg WEEKLY@0630 [facility] Administration Amlodipine Besylate 10 mg 06/02/19 09:00 06/03/19 08:47 Norvasc PO 10 mg DAILY GENEVA Administration Aspirin 81 mg 06/02/19 09:00 06/03/19
--- NOTE | 2019-06-04 08:44 | PM.PNGS ---
Progress Note: A&P Assessment and Plan (1) Acute cholecystitis: Code(s): K81.0 - Acute cholecystitis Status: Acute Assessment and Plan: WBC remains normal and patient continues to improve Advanced to a low fat diet this morning Cholecystostomy tube drainage appears less bloody today. Continue to monitor. No longer on the Heparin gtt. Bile cultures NGTD Will still plan to do cholecystectomy electively as an outpatient. Okay to discharge the patient from a surgical standpoint once medically stable. We will follow-up with the patient as an outpatient in 2-3 weeks. Continue cholecystostomy drain on discharge, empty and record output daily and as needed. (2) Sepsis: Qualifiers: Sepsis acute organ dysfunction status: without acute organ dysfunction Sepsis type: sepsis due to unspecified organism Qualified Code(s): A41.9 - Sepsis, unspecified organism Code(s): A41.9 - Sepsis, unspecified organism Status: Acute (3) Ventral hernia without obstruction or gangrene: Code(s): K43.9 - Ventral hernia without obstruction or gangrene Status: Acute (4) Non-ST elevation myocardial infarction (NSTEMI): Code(s): I21.4 - Non-ST elevation (NSTEMI) myocardial infarction Status: Acute Assessment and Plan: Cardiac cath clean. (5) DM I (diabetes mellitus, type I): Qualifiers: Diabetes mellitus complication status: with neurologic complications Diabetes mellitus complication detail: with polyneuropathy Qualified Code(s): E10.42 - Type 1 diabetes mellitus with diabetic polyneuropathy Code(s): E10.9 - Type 1 diabetes mellitus without complications Status: Acute (6) Morbid obesity with BMI of 40.0-44.9, adult: Code(s): E66.01 - Morbid (severe) obesity due to excess calories; Z68.41 - Body mass index (BMI) 40.0-44.9, adult Status: Acute Additional Plan Discussed plan of care with Dr. Figueroa today. Subjective Subjective Date/Time Seen: 06/04/19 08:44 Patient reports: no new complaints, flatus and no bowel movement Interval history: Patient seen and examined. Reports feeling well today without any new complaints. Denies abdominal pain, nausea, vomiting, or bloating. Still has not had a bowel movement. Has not been restarted on her MiraLax. No other complaints at this time. Cardiac catheterization yesterday was clean. Cholecystostomy tube output 100 cc yesterday. Review of Systems Review of Systems: All systems reviewed & are unremarkable except as noted in HPI and below Exam Const: General: alert; No acute distress Orientation/consciousness: patient oriented x3 GI: Inspection: normal to inspection, non-distended, visible herniation ( soft, reducible, ventral midline hernia above the umbilicus) and other (Cholecystostomy tube with blood-tinged bilious output) GI Palp: Yes Soft to palpation and Yes Tenderness to palpation present (GI) (diffuse upper abdominal issues) Auscultation: normal bowel sounds Neuro: General: moves all extremities and no focal motor deficits Objective Data Vital Signs Vital Signs: Vital Signs - 24 hr 06/03/19 10:00 06/03/19 12:00 06/03/19 14:00 Temperature 36.3 C L 36.7 C Pulse Rate 72 62 75 Respiratory Rate 22 H 18 Blood Pressure 117/42 L 132/53 L Pulse Oximetry 100 100 06/03/19 14:15 06/03/19 14:30 06/03/19 14:45 Temperature Pulse Rate 78 79 75 Respiratory Rate 16 15 14 Blood Pressure 143/58 H 146/55 H 148/56 H Pulse Oximetry 100 100 100 06/03/19 15:42 06/03/19 16:00 06/03/19 16:45 Temperature 36.4 C 36.3 C L Pulse Rate 76 80 78 Respiratory Rate 16 20 Blood Pressure 147/47 H 142/57 H Pulse Oximetry 100 100 06/03/19 17:45 06/03/19 17:54 06/03/19 18:50 Temperature 36.6 C 36.6 C Pulse Rate 79 81 80 Respiratory Rate 16 18 Blood Pressure 144/46 H 138/62 Pulse Oximetry 97 100 06/03/19 19:33 06/03/19 20:00 06/03/19 20:37 Temperature 36.7 C Pulse Rate 82
[2019-06-04 09:30] LABS: Glucose Point of Care 72 (65-105)
[2019-06-04] MEDS: POTASSIUM CHLORIDE 20 MEQ PACKET (FOR LIQUID) 40 MEQ PO (10:21)
[2019-06-04] MEDS: polyethylene glycoL 3350 17 GM POWD.PACK PO (10:21)
[2019-06-04] MEDS: CALCIUM CARBONATE (OSCAL) 500 MG TABLET PO (10:21)
[2019-06-04] MEDS: ASPIRIN 81 MG ENTERIC TABLET PO (10:21)
[2019-06-04] MEDS: MECLIZINE HCL 12.5 MG TABLET PO ×2 (10:22→13:19)
[2019-06-04] MEDS: METOPROLOL TARTRATE 25 MG TABLET PO (10:22)
[2019-06-04] MEDS: ESCITALOPRAM OXALATE 10 MG TABLET 20 MG PO (10:22)
[2019-06-04] MEDS: AMLODIPINE BESYLATE 5 MG TABLET 10 MG PO (10:22)
[2019-06-04] MEDS: SENNA/DOCUSATE SODIUM TABLET 2 TAB PO (10:23)
[2019-06-04] MEDS: MULTIVITAMINS /C LUTEIN (CENTRUM SILVER) TABLET *BKC 1 TAB PO (10:23)
[2019-06-04] MEDS: DEMECLOCYCLINE HCL 150 MG TABLET 300 MG PO (10:24)
[2019-06-04] MEDS: PANTOPRAZOLE SODIUM IV 40 MG VIAL IV PUSH (10:24)
[2019-06-04] MEDS: SIMETHICONE 125 MG CHEW TAB PO ×2 (10:25→13:19)
--- NOTE | 2019-06-04 10:29 | PM.DS ---
DS: Diagnosis Admitting Diagnosis Admitting Diagnosis: Non-ST elevation (NSTEMI) myocardial infarction Discharge Diagnosis (1) Acute cholecystitis: Code(s): K81.0 - Acute cholecystitis Status: Acute Assessment and Plan: 06/03/19 18: 16:38 Miladys Felipe is a 68 year old female Currently residing at the group home presented emergency department morbidly obese with history of diabetes with a complaint of abdominal pain nausea or vomiting and constipation CT scan of abdomen showed acute cholecystitis with minimal gas in the gallbladder and likely at the cystic duct which could be related to gas-forming organism or an enterobiliary fistula., also has a non STEMI and hyperglycemia, patient is seen by general surgery recommended conservative management with 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cho is ordered further assess structural abnormality of the heart, we have started the patient on home broad-spectrum antibiotic will gently hydrate the patient monitor patient blood sugar is patient's symptoms stabilized see general surgery will reassess with a recommendation with possible cholecystectomy, today patient is feeling better, pain has improved, able to tolerate clear liquids, cholecystostomy draining serosanguineous less than 20cc, seen by surgery recommending conservative management advanced her diet as tolerated once clinically stable will need cholecystectomy, and needs cardiac clearance, today patient was taken to the cardiac lab and had a cardiac catheterization and not show significant coronary artery disease and did not need any stents medical management is recommended, patient is cleared for cholecystectomy possibly tomorrow, currently present denies any abdominal pain nausea or vomiting chest pain palpitation fever or chills (2) Non-ST elevation myocardial infarction (NSTEMI): Code(s): I21.4 - Non-ST elevation (NSTEMI) myocardial infarction Status: Acute Assessment and Plan: Seen by coin dealer cardiac echo is essentially normal patient is scheduled cardiac catheterization tomorrow further evaluate non STEMI (3) DM I (diabetes mellitus, type I): Qualifiers: Diabetes mellitus complication status: with neurologic complications Diabetes mellitus complication detail: with polyneuropathy Qualified Code(s): E10.42 - Type 1 diabetes mellitus with diabetic polyneuropathy Code(s): E10.9 - Type 1 diabetes mellitus without complications Status: Acute Assessment and Plan: Will continue home regimen and monitor with sliding scale (4) H/O: HTN (hypertension): Code(s): Z86.79 - Personal history of other diseases of the circulatory system Status: Acute Assessment and Plan: Will continue home regimen and monitor DS: Summary Hospital Course Reason for hospitalization: Currently residing at the group home presented emergency department morbidly obese with history of diabetes with a complaint of abdominal pain nausea or vomiting and constipation CT scan of abdomen showed acute cholecystitis with minimal gas in the gallbladder and likely at the cystic duct which could be related to gas-forming organism or an enterobiliary fistula., also has a non STEMI and hyperglycemia, patient is seen by general surgery recommended conservative management with 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
[2019-06-04 12:57] LABS: Glucose Point of Care 277 (65-105)
[2019-06-04] MEDS: CHOLECALCIFEROL 1,000 UNIT TABLET 1000 UNITS PO (13:19)
[2019-06-04] MEDS: INSULIN ASPART (*BKC) 100 UNITS/ML SUB-Q ×2 (13:20)
== END 2019-06-04 14:15 | DRG 281 ==
LOC: ANHED 06-01 00:18 → ANHIMU 06-01 06:41
PROVIDERS: Emergency Medicine; Family Medicine; Physician Assistant; Radiology Diagnostic Radiology; Specialist; Admitting Provider Internal Medicine; Emergency Provider Emergency Medicine; PCP Family Medicine; Visit Provider Family Medicine
PROC: 4A023N7 Measurement of Cardiac Sampling and Pressure, Left Heart, Percutaneous Approach (ICD-10-PCS; CPT 93452; principal; 2019-06-03 12:30)
PROC: 4A023N7 Measurement of Cardiac Sampling and Pressure, Left Heart, Percutaneous Approach (ICD-10-PCS; 2019-06-03 12:30)
DX: I21.4 Non-ST elevation (NSTEMI) myocardial infarction (principal); K81.0 Acute cholecystitis; Z68.41 Body mass index [BMI] 40.0-44.9, adult; E66.01 Morbid (severe) obesity due to excess calories; F41.8 Other specified anxiety disorders; Z98.41 Cataract extraction status, right eye; Z98.42 Cataract extraction status, left eye; K21.9 Gastro-esophageal reflux disease without esophagitis; H40.9 Unspecified glaucoma; I10 Essential (primary) hypertension; E78.00 Pure hypercholesterolemia, unspecified; K58.9 Irritable bowel syndrome, unspecified; F20.9 Schizophrenia, unspecified; Z85.850 Personal history of malignant neoplasm of thyroid; E89.0 Postprocedural hypothyroidism; E10.42 Type 1 diabetes mellitus with diabetic polyneuropathy; E10.65 Type 1 diabetes mellitus with hyperglycemia; K43.9 Ventral hernia without obstruction or gangrene
CPT/HCPCS: 36415; 47490; 51701; 74177; 80048; 80053; 80061; 80076; 81001; 82010; 82948; 83605; 83690; 84484; 85025; 85027; 85610; 85730; 87040; 87070; 87075; 87081; 87102; 87205; 87206; 93005; 93458; 96361; 96365; 96368; 96375; 99285; A9270; C1760; C1887; C1894; C8929; C9113; G0269; J0692; J1644; J1815; J2250; J2270; J2405; J3010; J7030; J7040; J7120; Q9957; Q9967

== ENCOUNTER 2019-06-21 09:38 | Outpatient (CLI) | payer MEDICARE, MEDICAID, SELFPAY ==
--- NOTE | ~2019-06-21 | XR_ITS ---
EXAMINATION: XR catheter cholangiogram DATE: 06/21/2019 10:41 INDICATION: Acute cholecystitis. TECHNIQUE: I injected the percutaneous cholecystostomy tube with Omnipaque 240 during fluoroscopy. 4 images were obtained. The fluoroscopy exposure time was 0.2 minutes. COMPARISON: CT abdomen and pelvis 05/31/2019 FINDINGS: The cholecystostomy tube is in expected position. There are multiple stones in the gallblad [place]. The cystic duct is occluded. IMPRESSION: 1. Occluded cystic duct. 2. Cholelithiasis. Reviewed, dictated and finalized at location A.
== END 2019-06-21 09:39 | disposition home or self-care (01) ==
PROVIDERS: Visit Provider Surgery
DX: K81.0 Acute cholecystitis (principal); K80.20 Calculus of gallbladder without cholecystitis without obstruction; K83.1 Obstruction of bile duct
CPT/HCPCS: 47531

== ENCOUNTER 2019-08-05 01:12 | Day surgery (SDC) | payer MEDICARE, MEDICAID, SELFPAY ==
[2019-07-29 15:31] VITALS: BMI 41.1
--- NOTE | 2019-08-04 11:25 | WPDANESEPP ---
Anes - Eval Pre Procedure Procedure: Operation Date: 08/05/19 09:00 Proposed Procedures p Laparoscopic Cholecystectomy Possible Open - Suleiman Figueroa DO s Possible Open Ventral Incisional Hernia Repair - Suleiman Figueroa DO Date/Time: 08/04/19 11:25 Pre Op Diagnosis: Cholecystitis Patient Data Age: 68 Gender: F Height: 1.68 m Weight: 115.67 kg Allergies Allergy/AdvReac Type Severity Reaction Status Date / Time chlorpromazine Allergy Unknown Unknown Verified 06/14/19 09:57 lactase Allergy Unknown Unknown Verified 06/14/19 09:57 levofloxacin Allergy Unknown Unknown Verified 07/29/19 15:37 Penicillins Allergy Unknown Unknown Verified 07/29/19 15:37 Sulfa (Sulfonamide Allergy Unknown Unknown Verified 07/29/19 15:37 Antibiotics) sulfanilamide Allergy Unknown Unknown Verified 07/29/19 15:37 thiothixene Allergy Unknown Unknown Verified 06/14/19 09:57 CHLORPROMAZINE HCL Allergy Unknown Unknown Uncoded 06/14/19 09:57 THIOTHIXENE HCL Allergy Unknown Unknown Uncoded 06/14/19 09:57 Home Medications Medication Instructions Recorded Confirmed Type Adults Multivitamin 1 tablet PO DAILY 06/01/19 07/29/19 History Lantus U-100 Insulin 28 unit SUBCUT HS 06/01/19 07/29/19 History alendronate 70 mg PO WEEKLY 06/01/19 07/29/19 History amlodipine 10 mg PO DAILY 06/01/19 07/29/19 History aspirin 81 mg PO DAILY 06/01/19 07/29/19 History calcium carbonate-vitamin D3 1 tablet PO DAILY 06/01/19 07/29/19 History [Calcium 600 + D(3)] cholecalciferol (vitamin D3) 1,000 unit PO BID 06/01/19 07/29/19 History cyanocobalamin (vitamin B-12) 1,000 mcg IM MONTHLY 06/01/19 07/29/19 History escitalopram oxalate 20 mg PO DAILY 06/01/19 07/29/19 History insulin aspart U-100 [Novolog 1 sliding scale dose SUBCUT BIDWM 06/01/19 07/29/19 History U-100 Insulin aspart] insulin aspart U-100 [Novolog 1 sliding scale dose SUBCUT QPM 06/01/19 07/29/19 History U-100 Insulin aspart] insulin aspart U-100 [Novolog 4 unit SUBCUT BIDWM 06/01/19 07/29/19 History U-100 Insulin aspart] levothyroxine 112 mcg PO DAILY 06/01/19 07/29/19 History lidocaine HCl [Aspercreme 1 applic TOPICAL QID PRN 06/01/19 07/29/19 History (lidocaine)] liothyronine [Cytomel] 5 mcg PO BID 06/01/19 07/29/19 History meclizine 12.5 mg PO TID 06/01/19 07/29/19 History melatonin 1 mg PO HS PRN 06/01/19 07/29/19 History nystatin 1 applic TOPICAL BID PRN 06/01/19 07/29/19 History polyethylene glycol 3350 [Miralax] 17 g PO BID 06/01/19 07/29/19 History ranitidine HCl 150 mg PO DAILY PRN 06/01/19 07/29/19 History risperidone 1 mg PO HS 06/01/19 07/29/19 History sennosides-docusate sodium [Senna 2 tab-cap PO BID 06/01/19 07/29/19 History Plus] metoprolol tartrate 25 mg PO Q12HR #60 tablet 06/04/19 07/29/19 Rx simethicone [Gas-X Extra Strength] 125 mg PO QID #30 cap 06/04/19 07/29/19 Rx bisacodyl 10 mg HI DAILY PRN 07/29/19 07/29/19 History bisacodyl [Dulcolax (bisacodyl)] 10 mg PO DAILY PRN 07/29/19 07/29/19 History glucagon (human recombinant) 1 mg SUBCUT Q20M PRN 07/29/19 07/29/19 History [Glucagon Emergency Kit (human)] guaifenesin 200 mg PO Q6H PRN 07/29/19 07/29/19 History melatonin 5 mg PO HS PRN 07/29/19 07/29/19 History ondansetron HCl [Zofran] 4 mg PO Q6H PRN 07/29/19 07/29/19 History Patient hx anesthesia problems: none Family hx anesthesia problems: none PMFSH Past Medical History Medical History Anxiety Bipolar 1 disorder Cataracts, bilateral Charcot gait Colitis Depression DM I (diabetes mellitus, type I) GERD (gastroesophageal reflux disease) Glaucoma H/O: HTN (hypertension) Hypercholesteremia Hypoglycemia Hypothyroid IBS (irritable bowel syndrome) Peripheral neuropathy Schizophrenia Thyroid cancer Surgical History Surgical History H/O foot surgery History of thyroidectomy Hx of bilateral cataract extraction Previous section
[2019-08-05] VITALS (12 sets, daily range): BP systolic 121–174; BP diastolic 45–98; PULSE 58–83; RESP 14–20; TEMP 35.9–37.1; O2SAT 97–100
--- NOTE | 2019-08-05 07:43 | WPDANESEFPP ---
Anes - Eval Final PreProcedure Day of Procedure 08/05/19 07:43 Patient weight: morbidly obese Heart: regular rate and rhythm Lungs: decreased breath sounds Airway: Mallampati scale class II Neurological: other (alert) Last oral intake: >/= 8 hours ASA classification: IV Emergent: no Anesthetic plan: proceed Anesthesia type and monitoring: general ETT and standard monitoring Informed Consent: The patient's anesthetic plan and its attendant risks and benefits were discussed with the patient/family/POA. Questions were solicited and answers provided to the satisfaction of the patient/family/POA.
[2019-08-05] MEDS: LACTATED RINGERS 1,000 ML 30 ML IV CONT (07:45)
[2019-08-05 08:03] LABS: Glucose Point of Care 86 (65-105)
--- NOTE | 2019-08-05 08:45 | SUR.PREOP ---
0700-ABD. DRAIN NOTED, DRAINING YELLOWISH DRAINAGE TO GRAVITY. 0845-DISCUSSED PT ALLERGY UNKOWN TO PCN WITH DR. SUTHERLAND, WILL PROCEED WITH [facility].
--- NOTE | 2019-08-05 08:51 | PM.IMHP ---
H&P: HPI History of Present Illness Chief complaint: Cholecystitis Narrative: Miladys Felipe is a 68 year old female who presents for laparoscopic cholecystectomy. She had severe acute cholecystitis previously and underwent percutaneous cholecystostomy tube placement. She has done well since then. Drain has been in for almost 2 months. Review of Systems Review of Systems: All systems reviewed & are unremarkable except as noted in HPI and below Constitutional: Constitutional: Denies chills, Denies fever(s), Denies headache(s) and Denies weight loss Eyes: Eyes: Denies change in vision ENT: Denies dizziness, Denies headache(s), Denies neck mass and Denies throat swelling Cardiovascular: Cardiovascular: Denies chest pain, Denies lightheadedness and Denies dyspnea Respiratory: Respiratory: Denies cough, Denies dyspnea and Denies wheezing Gastrointestinal: Gastrointestinal: Denies abdominal pain, Denies change in bowel habits, Denies nausea and Denies vomiting Genitourinary: Genitourinary: Denies hematuria and Denies dysuria Musculoskeletal: Musculoskeletal: Reports as per HPI Integumentary/Breasts: Skin/Breast: Reports as per HPI Neurologic: Denies dizziness and Denies headache(s) Allergic/Immunologic: Allergic/Immunologic: Denies throat swelling and Denies wheezing PMFSH Past Medical History Medical History Anxiety Bipolar 1 disorder Cataracts, bilateral Charcot gait Colitis Depression DM I (diabetes mellitus, type I) GERD (gastroesophageal reflux disease) Glaucoma H/O: HTN (hypertension) Hypercholesteremia Hypoglycemia Hypothyroid IBS (irritable bowel syndrome) Peripheral neuropathy Schizophrenia Thyroid cancer Surgical History Surgical History H/O foot surgery History of thyroidectomy Hx of bilateral cataract extraction Previous section x2. Family History Family History Mother Family history of thyroid disease Sibling Family history of thyroid disease Father Cancer Other Family history of arthritis Family history of cataracts Family history of glaucoma Family history of hearing loss Family history of lung disease Social History Social History Smoking status: Never smoker Alcohol intake: never Substance use: never Spiritual care concerns: No Agree to blood products: Yes Meds Home Medications and Allergies Home Medications Medication Instructions Recorded Confirmed Type Adults Multivitamin 1 tablet PO DAILY 06/01/19 07/29/19 History Lantus U-100 Insulin 28 unit SUBCUT HS 06/01/19 07/29/19 History alendronate 70 mg PO WEEKLY 06/01/19 07/29/19 History amlodipine 10 mg PO DAILY 06/01/19 08/05/19 History aspirin 81 mg PO DAILY 06/01/19 07/29/19 History calcium carbonate-vitamin D3 1 tablet PO DAILY 06/01/19 07/29/19 History [Calcium 600 + D(3)] cholecalciferol (vitamin D3) 1,000 unit PO BID 06/01/19 07/29/19 History cyanocobalamin (vitamin B-12) 1,000 mcg IM MONTHLY 06/01/19 07/29/19 History escitalopram oxalate 20 mg PO DAILY 06/01/19 07/29/19 History insulin aspart U-100 [Novolog 1 sliding scale dose SUBCUT BIDWM 06/01/19 07/29/19 History U-100 Insulin aspart] insulin aspart U-100 [Novolog 1 sliding scale dose SUBCUT QPM 06/01/19 07/29/19 History U-100 Insulin aspart] insulin aspart U-100 [Novolog 4 unit SUBCUT BIDWM 06/01/19 07/29/19 History U-100 Insulin aspart] levothyroxine 112 mcg PO DAILY 06/01/19 08/05/19 History lidocaine HCl [Aspercreme 1 applic TOPICAL QID PRN 06/01/19 07/29/19 History (lidocaine)] liothyronine [Cytomel] 5 mcg PO BID 06/01/19 08/05/19 History meclizine 12.5 mg PO TID 06/01/19 07/29/19 History melatonin 1 mg PO HS PRN 06/01/19 07/29/19 History nystatin 1 applic TOPICAL BID PRN 06/01/19
[2019-08-05] MEDS: ceFAZolin 2 GM/D5W 50 ML 2 GM/50 ML BAG IVPB (09:03)
[2019-08-05] MEDS: IBUPROFEN IV 800 MG/200 ML 800 MG/200 ML BAG 400 MG IVPB (09:30)
[2019-08-05] MEDS: BUPIVACAINE/EPINEPHRINE 0.5% 30 ML VIAL INFILTRATE (09:54)
--- NOTE | 2019-08-05 10:30 | PM.PROC ---
Procedure Note - Detailed Date of procedure: 08/05/19 Pre-op diagnosis: CHRONIC CALCULOUS CHOLECYSTITIS, VENTRAL HERNIA Post-op diagnosis: same Procedure performed: Laparoscopic Cholecystectomy Description of procedure: Procedure as well as risks, benefits, and alternatives were discussed with patient. Written consent was obtained and placed in chart prior to procedure. The patient was brought back to surgical suite. Patient was placed in supine position on operating table. Time-out was done to confirm patient and procedure. Patient was then intubated by the anesthesia department. Abdomen was prepped and draped in sterile fashion using chlorhexidine prep. 0.5% bupivacaine with epinephrine was infiltrated at each site of incision. A 5 millimeter incision was made near the umbilicus, and a 5 millimeter Optiview trocar was advanced through the abdominal layers under direct visualization. Once inside the abdominal cavity, carbon dioxide was insufflated to create a pneumoperitoneum. The camera was inserted and the abdomen was inspected. No immediate abnormalities were identified. The patient was placed in reverse Trendelenburg position and rotated slightly to the left. An 11 millimeter incision was made in the subxiphoid region, and an 11 millimeter trocar was inserted under direct visualization. Two 5 millimeter incisions were made in the right upper quadrant, and two 5 millimeter trocars were inserted under direct visualization. The gallbladder was identified and grasped at the fundus and retracted superiorly. It was then grasped at the infundibulum retracted laterally. Careful dissection around the neck of the gallbladder was performed using blunt dissection with a [place] grasper and hook electrocautery. The cystic duct was identified, and a window was created behind it. The cystic artery was also identified and a window was created behind it. The critical view of safety was identified, visualizing the cystic duct running directly into the neck of the gallbladder, and the cystic artery running directly into the wall of the gallbladder. A 5 millimeter clip eyeglass fitter was then used to place 2 clips proximally and 1 clip distally on both the cystic duct and cystic artery. They were then both transected using endoscopic scissors. Once safely away from the cari hepatitis, the gallbladder was dissected free from the liver bed using hook electrocautery. Hemostasis was achieved along the way. The gallbladder was removed completely and then removed through the subxiphoid port. The liver bed was then inspected. Hemostasis appeared adequate, and our clips appeared secure. The area was gently irrigated with sterile saline. No other abnormalities were seen. The patient was flattened out in bed, and 1 final inspection was made around the abdominal cavity. The subxiphoid port was removed, and a Nico [place] cone was used to approximate the fascia with an 0-Vicryl simple interrupted suture. The remaining ports were then removed under direct visualization, the camera was removed, and the pneumoperitoneum was released. The skin of the incisions was approximated using 4-0 Monocryl subcuticular sutures. Exofin glue was applied on top. The patient was then awakened from anesthesia, extubated, and transferred to recovery. Anesthesia: GETA and local (0.5% bupivicaine with epi) Surgeon: Suleiman Figueroa DO Estimated blood loss (mL): 10 Drains: No Packing: No Pathology: yes Complications: No immediate complications Condition: stable (Patient tolerated procedure well, and is currently resting comfortably in recovery.) Disposition: same day Findings: This is a 68-year-old woman who presented with a prior history of severe acute calculous cholecystitis and was hospitalized about 2 months ago. She had evidence of sepsis and elevated troponins at that time, therefore percutaneous cholecystostomy tube was placed. She underwent cardiac catheterization and no signs of
[2019-08-05 11:13] LABS: Glucose Point of Care 93 (65-105)
--- NOTE | 2019-08-05 11:49 | SUR.PHASEI ---
1149; LONGTERM NOTIFIED THAT PT WILL BE STAYING OVERNIGHT IN HOSPITAL.
[2019-08-05 13:08] LABS: Glucose Point of Care 88 (65-105)
[2019-08-05] MEDS: SIMETHICONE 125 MG CHEW TAB PO (15:57)
[2019-08-05] MEDS: LIOTHYRONINE SODIUM 5 MCG TABLET PO (15:57)
[2019-08-05] MEDS: SENNA/DOCUSATE SODIUM TABLET 2 TAB PO (15:58)
[2019-08-05] MEDS: MECLIZINE HCL 12.5 MG TABLET PO (15:58)
[2019-08-05] MEDS: polyethylene glycoL 3350 17 GM POWD.PACK PO (16:01)
[2019-08-05 17:42] LABS: Glucose Point of Care 403 (65-105)
[2019-08-05] MEDS: INSULIN ASPART (*BKC) 100 UNITS/ML 10 UNITS SUB-Q (18:11)
[2019-08-05] MEDS: risperiDONE 1 MG TABLET PO (21:52)
[2019-08-05] MEDS: ENOXAPARIN 30 MG/0.3 ML SYRINGE SUB-Q (21:52)
[2019-08-05] MEDS: METOPROLOL TARTRATE 25 MG TABLET PO (21:52)
[2019-08-05] MEDS: INSULIN GLARGINE (*BKC) 100 UNITS/ML 28 UNITS SUB-Q (21:55)
[2019-08-05 22:47] LABS: Glucose Point of Care 267 (65-105)
[2019-08-05 22:47] LABS: Glucose Point of Care 184 (65-105)
[2019-08-06 01:22] VITALS: BP 148/76; PULSE 79; RESP 16; TEMP 36.8; O2SAT 97
[2019-08-06 04:43] LABS: Glucose Point of Care 161 (65-105)
[2019-08-06 05:10] LABS: Hematocrit 30.5 % (37.0-47.0); Hemoglobin 10.2 g/dL (12.0-15.0); Mean Corpuscular HGB Conc 33.4 g/dl (32-36); Mean Corpuscular Hemoglobin 30.3 pg (26-34); Mean Corpuscular Volume 90.5 fl (80-100); Mean Platelet Volume 11.2 fl (7.4-10.4); Platelet Count Result 277 k/mm3 (150-375); Red Blood Count 3.37 M/mm3 (4.2-5.4); Red Cell Distribution Width 12.6 % (11.5-14.5); White Blood Count 6.8 K/mm3 (4.5-10.0)
[2019-08-06 05:22] VITALS: BP 115/54; PULSE 70; RESP 20; TEMP 37.1; O2SAT 94
[2019-08-06 05:46] LABS: Blood Urea Nitrogen 7 mg/dL (7-17); Calcium 8.7 mg/dL (8.4-10.2); Carbon Dioxide 28 mmol/L (22-30); Chloride 99 mmol/L (98-107); Estimated CRCL calculation 77 ml/min; Estimated Glomerular Filt Rate > 60; Glucose 183 mg/dL (65-105); Potassium 4.6 mmol/L (3.4-5.0); Sodium 131 mmol/L (137-145)
[2019-08-06] MEDS: LEVOTHYROXINE SODIUM 112 MCG TABLET PO (05:47)
[2019-08-06] MEDS: SENNA/DOCUSATE SODIUM TABLET 2 TAB PO (09:01)
[2019-08-06 09:02] VITALS: PULSE 72
[2019-08-06] MEDS: ASPIRIN 81 MG ENTERIC TABLET PO (09:02)
[2019-08-06] MEDS: AMLODIPINE BESYLATE 5 MG TABLET 10 MG PO (09:02)
[2019-08-06] MEDS: LIOTHYRONINE SODIUM 5 MCG TABLET PO (09:02)
[2019-08-06] MEDS: METOPROLOL TARTRATE 25 MG TABLET PO (09:02)
[2019-08-06] MEDS: ESCITALOPRAM OXALATE 10 MG TABLET 20 MG PO (09:02)
[2019-08-06] MEDS: MECLIZINE HCL 12.5 MG TABLET PO (09:03)
[2019-08-06] MEDS: INSULIN ASPART (*BKC) 100 UNITS/ML SUB-Q (09:04)
[2019-08-06] MEDS: polyethylene glycoL 3350 17 GM POWD.PACK PO (09:04)
[2019-08-06] MEDS: ENOXAPARIN 30 MG/0.3 ML SYRINGE SUB-Q (09:06)
[2019-08-06 10:00] VITALS: BP 121/60; PULSE 74; RESP 18; TEMP 36.7; O2SAT 96
--- NOTE | 2019-08-06 10:28 | PC.NURSE ---
Patient refused ice to abdomen due to discomfort of ice weight
--- NOTE | 2019-08-06 10:37 | PM.DS ---
DS: Diagnosis Admitting Diagnosis Admitting Diagnosis: Acute cholecystitis Discharge Diagnosis (1) Chronic calculous cholecystitis: Code(s): K80.10 - Calculus of gallbladder with chronic cholecystitis without obstruction Status: Acute (2) Ventral hernia without obstruction or gangrene: Code(s): K43.9 - Ventral hernia without obstruction or gangrene Status: Acute (3) Morbid obesity with BMI of 40.0-44.9, adult: Code(s): E66.01 - Morbid (severe) obesity due to excess calories; Z68.41 - Body mass index (BMI) 40.0-44.9, adult Status: Acute (4) DM I (diabetes mellitus, type I): Qualifiers: Diabetes mellitus complication status: with neurologic complications Diabetes mellitus complication detail: with polyneuropathy Qualified Code(s): E10.42 - Type 1 diabetes mellitus with diabetic polyneuropathy Code(s): E10.9 - Type 1 diabetes mellitus without complications Status: Acute DS: Summary Hospital Course Reason for hospitalization: Chronic calculous cholecystitis Hospital Course: This is a 68-year-old woman who had a prior episode of acute cholecystitis and was noted to be septic. She had undergone percutaneous cholecystostomy tube placement by Radiology and was managed non operatively initially. She had elevated troponin levels at that time of admission 2 months ago, and underwent cardiac catheterization. No signs of significant stenosis were identified at that time. She has now recovered from her episode of acute cholecystitis and has been managing the drain at her alf. A follow-up cholangiogram through the cholecystostomy tube showed persistent obstruction the cystic duct. The decision was then made to proceed with laparoscopic cholecystectomy. Procedure was uncomplicated, and she was then admitted to the hospital for outpatient extended recovery. Her pain was controlled and activity was advanced as tolerated. She needed significant assistance with activity initially due to her other comorbidities. On postop day 1 she was doing well. She was tolerating a low-fat diet and pain was controlled. She remained hemodynamically stable. Decision was made to discharge patient back to her [facility] facility. Status at Discharge Functional status at discharge: wheelchair bound Overall status at discharge: patient is progressing back to baseline Time Spent with Patient Time attestation: Total time spent providing and/or coordinating discharge services: Time spent: Less than 30 minutes Exam Const: General: no acute distress Neck: Neck: no JVD Resp: Auscultation: clear to auscultation bilaterally Cardio: Rate: regular rate Rhythm: regular rhythm GI: GI Palp: Yes Soft to palpation and Yes Tenderness to palpation present (GI) (Incisional) Other: Incisions clean, dry, and intact with glue in place. DS: Data Data Completed and Pending Pending studies at discharge: Pending at discharge 08/05/19 09:46 Surgical [PTH] Routine Labs on day of discharge: Labs from last 24 hours 08/06/19 08/06/19 08/06/19 04:55 04:55 04:29 WBC 6.8 RBC 3.37 L Hgb 10.2 L Hct 30.5 L MCV 90.5 MCH 30.3 MCHC 33.4 RDW 12.6 Plt Count 277 MPV 11.2 H Sodium 131 L Potassium 4.6 Chloride 99 Carbon Dioxide 28 BUN 7 Creatinine 0.80 Estim Creat Clear Calc 77 Estimated GFR > 60 Glucose 183 H POC Capillary Glucose 161 H Calcium 8.7 08/05/19 08/05/19 08/05/19 21:53 19:52 17:23 WBC RBC Hgb Hct MCV MCH MCHC RDW Plt Count MPV Sodium Potassium Chloride Carbon Dioxide BUN Creatinine Estim Creat Clear Calc Estimated GFR Glucose POC Capillary Glucose 184 H 267 H 403 H Calcium 08/05/19 08/05/19 13:05 11:11 WBC RBC Hgb Hct MCV MCH MCHC RDW Plt Count MPV Sodium Potassium Chloride Carbon Dioxide B
[2019-08-06 12:53] LABS: Glucose Point of Care 228 (65-105)
== END 2019-08-06 12:50 ==
LOC: ANHSURGERY 10:40 → ANH3MEDSUR 12:17
PROVIDERS: Visit Provider Surgery
PROC: 0FT44ZZ Resection of Gallbladder, Percutaneous Endoscopic Approach (ICD-10-PCS; CPT 47562; principal; 2019-08-05 09:00)
DX: K80.12 Calculus of gallbladder with acute and chronic cholecystitis without obstruction (principal); K43.9 Ventral hernia without obstruction or gangrene; Z79.82 Long term (current) use of aspirin; Z79.4 Long term (current) use of insulin; E10.42 Type 1 diabetes mellitus with diabetic polyneuropathy; E10.610 Type 1 diabetes mellitus with diabetic neuropathic arthropathy; I10 Essential (primary) hypertension; E78.00 Pure hypercholesterolemia, unspecified; K21.9 Gastro-esophageal reflux disease without esophagitis; F20.9 Schizophrenia, unspecified; F31.9 Bipolar disorder, unspecified; F41.9 Anxiety disorder, unspecified; K58.9 Irritable bowel syndrome, unspecified; Z85.850 Personal history of malignant neoplasm of thyroid; E89.0 Postprocedural hypothyroidism; E66.01 Morbid (severe) obesity due to excess calories; Z68.41 Body mass index [BMI] 40.0-44.9, adult
CPT/HCPCS: 47562; 36415; 80048; 85027; 86850; 86900; 86901; 88304; A9270; J0131; J0330; J0690; J1650; J1741; J1815; J2250; J2704; J2710; J3010; J7120

== ENCOUNTER 2019-11-07 14:11 | Outpatient (CLI) | payer MEDICARE, MEDICAID, SELFPAY ==
--- NOTE | ~2019-11-07 | US_ITS ---
US thyroid INDICATION: Status post thyroidectomy for thyroid cancer TECHNIQUE: Real-time sonographic images of the thyroid gland were obtained. COMPARISON: 02/23/2012 FINDINGS: The thyroid gland is surgically absent. No abnormal masses or fluid collections are identif ied in the thyroidectomy bed. IMPRESSION: 1. Normal ultrasound of the thyroid bed post thyroidectomy. Reviewed, dictated and finalized at location B.
== END 2019-11-07 14:12 | disposition home or self-care (01) ==
PROVIDERS: Visit Provider Internal Medicine Endocrinology, Diabetes & Metabolism
DX: C73 Malignant neoplasm of thyroid gland (principal); E87.1 Hypo-osmolality and hyponatremia; E10.9 Type 1 diabetes mellitus without complications; M81.0 Age-related osteoporosis without current pathological fracture
CPT/HCPCS: 76536

== ENCOUNTER 2020-02-21 10:10 | Outpatient (CLI) | payer MEDICARE, MEDICAID, SELFPAY ==
--- NOTE | ~2020-02-21 | DEXA_ITS ---
Bone Density Report Name: Miladys Felipe Age: 69 Sex: Female Ethnicity: White Date of : 1950 Indication: postmenopausal; cancer; Referring Provider: Soniya Zelaya Study: Bone densitometry was performed. Exam Date: February 21, 2020 Accession number: [id number] Bone Density: Region BMD T-score Z-score Classification AP Spine (L1, L3, L4) 1.125 0.7 2.7 Normal Femoral Neck (Left) 0.725 -1.1 0.6 Osteopenia Total Hip (Left) 0.997 0.5 1.9 Normal Total Hip Bilateral Avg 0.983 0.4 1.8 Normal Femoral Neck (Right) 0.828 -0.2 1.5 Normal Total Hip (Right) 0.968 0.2 1.6 Normal World Health Organization criteria for BMD impression classify patients as: Normal (T-score at or above -1.0), Osteopenia (T-score between -1.0 and -2.5), or Osteoporosis (T-score at or below -2.5). 10-year Fracture Risk: FRAX not reported because: Treated for osteoporosis Clinical Information Provided by Patient: Is being treated for osteoporosis Has used the following medications: Fosamax (i.e. alendronate), Vitamin D Has the following medical conditions: Cancer Patient maximum height was 65 Menopause Age: 46 No regular weight bearing exercise Drinks caffeinated beverages Onset of menses at age 15 Number of children 2 Impression: The patient has low bone mass, based on the Left Femoral Neck T-score. Discussion: It is important to ask patients whether they are taking their medications and to encourage continued and appropriate compliance with their osteoporosis therapies to reduce fracture risk. It is also important to review their risk factors and encourage appropriate calcium and vitamin D intakes, exercise, fall prevention and other lifestyle measures. Follow-Up: Consider a repeat BMD and Vertebral Fracture Assessment (VFA) exam in 2 years or sooner if medically necessary, to reassess this patient's status. Reported by: [facility] on 02/21/2020 10:34:00 AM. Reviewed, dictated and finalized at location ACatherine GARCIA
== END 2020-02-21 10:11 | disposition home or self-care (01) ==
PROVIDERS: Visit Provider Internal Medicine Endocrinology, Diabetes & Metabolism
DX: M81.0 Age-related osteoporosis without current pathological fracture (principal); E87.1 Hypo-osmolality and hyponatremia; C73 Malignant neoplasm of thyroid gland; E10.42 Type 1 diabetes mellitus with diabetic polyneuropathy; M85.852 Other specified disorders of bone density and structure, left thigh
CPT/HCPCS: 77081

== ENCOUNTER 2020-08-26 00:05 | Emergency (ER) | payer MEDICARE, MEDICAID, SELFPAY ==
[2020-08-26] VITALS (9 sets, daily range): BP systolic 161–173; BP diastolic 62–69; PULSE 99–111; RESP 15–27; TEMP 36.6; O2SAT 100
--- NOTE | ~2020-08-26 | CT_ITS ---
EXAMINATION: CT brain wo con INDICATION: Transient alteration of awareness COMPARISON: 06/14/2018 TECHNIQUE: Standard unenhanced head CT. The dose-length product (DLP) was 681.00 mGy-cm. The mA was a djusted according to patient size. Iterative reconstruction technique was employed. FINDINGS: There is no acute intraparenchymal hemorrhage. No evidence of mass lesion. No evidence of a cute infarction. An old lacunar infarct is noted in the right thalamus. There is mild periventricular and subcortical hypodensity probably related to small vessel ischemic disease. There is mild promine nce of the sulci and ventricles related to cerebral atrophy. Intracranial calcified cerebral atherosc lerosis is noted. There are no extra-axial collections. There is no mass effect or midline shift. Marlen nges in the globes are likely from ocular lens surgery. The visualized sinuses and mastoid air cells are well aerated. IMPRESSION: 1. Old lacunar infarct of the right thalamus without acute intracranial abnormality. 2. Age related findings. Reviewed, dictated and finalized at location A. IMPRESSION: 1. Old lacunar infarct of the right thalamus without acute intracranial abnorma lity. 2. Age related findings.
--- NOTE | ~2020-08-26 | XR_ITS ---
EXAMINATION: XR chest 1V INDICATION: Transient alteration of awareness TECHNIQUE: AP view of the chest is obtained. COMPARISON: 06/14/2018 FINDINGS: Cardiomegaly is noted. There is mild atelectasis of the lung bases. There is no pleural eff usion or pneumothorax. Mild osteoarthritis is noted in the shoulders. IMPRESSION: 1. Mild atelectasis of the lung bases. Reviewed, dictated and finalized at location A.
--- NOTE | ~2020-08-26 | CT_ITS ---
EXAMINATION: CT abdomen pelvis w con INDICATION: Abdominal pain TECHNIQUE: Computed tomographic images of the abdomen and pelvis were obtained after the administrati on of 100 cc of Omnipaque 350 intravenous contrast. The dose-length product (DLP) was 1503.79 mGy-cm. Automated exposure control and iterative reconstruction technique were employed. COMPARISON: 05/31/2019 FINDINGS: Minimal dependent atelectasis is present in the lung bases. The heart size is normal. There has been interval cholecystectomy. The liver, spleen, pancreas, and adrenal glands are normal. The k idneys are unremarkable. There is calcified atherosclerosis of the aorta and many of the other arteri es. No pathologically enlarged abdominal or pelvic lymph nodes are identified. There is no free intra peritoneal gas or evidence of bowel obstruction. A large volume of colonic stool is present. There is severe lumbar spondylosis. A large epigastric hernia containing fat is noted. There is a small umbil ical hernia containing fat. IMPRESSION: 1. Constipation. Reviewed, dictated and finalized at location A. IMPRESSION: 1. Constipation.
--- NOTE | 2020-08-26 00:16 | ECG_ITS ---
Measurements Intervals [place] Rate: 0 P: [place]: 0 QRS: QRSD: 0 T: QT: 0 QTc: 0 Interpretive Statements SINUS RHYTHM LEFT AXIS DEVIATION INCOMPLETE RIGHT BUNDLE BRANCH BLOCK DELAYED PRECORDIAL R/S TRANSITION INFERIOR INFARCT, AGE INDETERMINATE BASELINE ARTIFACT- I, II, III, AVR, AVLM AVF, V1-V6 ABNORMAL ECG Electronically Signed On 08-26-2020 7:07:44 CDT by Francis Blanchard D.O.
[2020-08-26 00:24] LABS: Glucose Point of Care 239 (65-105)
--- NOTE | 2020-08-26 00:29 | ED.GENADULT ---
HPI - General Adult General Chief complaint: Altered Mental Status Stated complaint: AMS Time Seen by Provider: 08/26/20 00:12 History of Present Illness HPI narrative: Patient 69-year-old female presents the emergency department with chief complaint of altered mental status. Patient was sent from a local residential after she states that she has been having nominal pain and feels as though her abdomen is swelling. The patient reports has not had a bowel movement in several days per the residential they were unable to get her to respond to them although the patient is talking and providing all history here patient denies fever denies nausea denies vomiting. Related Data Home Medications Medication Instructions Recorded Confirmed cholecalciferol (vitamin D3) 1,000 unit PO BID 06/01/19 09/17/19 cyanocobalamin (vitamin B-12) 1,000 mcg IM MONTHLY 06/01/19 09/17/19 escitalopram oxalate 20 mg PO DAILY 06/01/19 09/17/19 lidocaine HCl [Aspercreme 1 applic TOPICAL QID PRN 06/01/19 09/17/19 (lidocaine HCl)] meclizine 12.5 mg PO TID 06/01/19 09/17/19 nystatin 1 applic TOPICAL BID PRN 06/01/19 09/17/19 polyethylene glycol 3350 [Miralax] 17 g PO BID 06/01/19 09/17/19 risperidone 1 mg PO HS 06/01/19 09/17/19 sennosides-docusate sodium [Senna 2 tab-cap PO BID 06/01/19 09/17/19 Plus] Glucagon Emergency Kit (human) 1 mg SUBCUT Q20M PRN 07/29/19 09/17/19 bisacodyl [Dulcolax (bisacodyl)] 10 mg PO DAILY PRN 07/29/19 09/17/19 melatonin 5 mg PO HS PRN 07/29/19 09/17/19 ondansetron HCl [Zofran] 4 mg PO Q6H PRN 07/29/19 09/17/19 acetaminophen 500 mg tablet 500 mg PO Q6H PRN 01/23/20 aluminum-mag hydroxide-simethicone 5 ml PO ONCE 01/23/20 200 mg-200 mg-20 mg/5 mL oral susp fluticasone propionate 50 1 inhalation INHALATION Q12H 01/23/20 mcg/actuation blister powder for inhalation guaifenesin 100 mg/5 mL oral liquid 200 mg PO Q4H PRN 01/23/20 magnesium hydroxide 400 mg/5 mL 5 ml PO DAILY PRN 01/23/20 oral suspension miconazole nitrate 2 % topical 1 spray TOPICAL DAILY 01/23/20 spray powder polyvinyl alcohol-povidone (PF) 1 drop EACH EYE Q4-6H PRN 01/23/20 1.4 %-0.6 % eye drops in a dropperette tasimelteon 20 mg capsule 20 mg PO ONCE 01/23/20 trazodone 50 mg tablet 50 mg PO TID 01/23/20 triamcinolone acetonide 0.1 % 1 applic DENTAL BID 01/23/20 dental paste Allergies Allergy/AdvReac Type Severity Reaction Status Date / Time chlorpromazine Allergy Unknown Unknown Verified 08/26/20 00:41 lactase Allergy Unknown Unknown Verified 08/26/20 00:41 levofloxacin Allergy Unknown Unknown Verified 08/26/20 00:41 Penicillins Allergy Unknown Unknown Verified 08/26/20 00:41 Sulfa (Sulfonamide Allergy Unknown Unknown Verified 08/26/20 00:41 Antibiotics) sulfanilamide Allergy Unknown Unknown Verified 08/26/20 00:41 thiothixene Allergy Unknown Unknown Verified 08/26/20 00:41 CHLORPROMAZINE HCL Allergy Unknown Unknown Uncoded 08/26/20 00:41 THIOTHIXENE HCL Allergy Unknown Unknown Uncoded 08/26/20 00:41 Review of Systems Review of Systems: Narrative: A 10 system review of systems was completed on the patient and is negative except for what is stated in the HPI. Nursing and ancillary documentation was reviewed. [facility] Past Medical History Medical History (Updated 08/26/20 @ 01:55 by Isiah Arce MD) Anxiety Bipolar 1 disorder Cataracts, bilateral Charcot gait Colitis Depression DM I (diabetes mellitus, type I) GERD (gastroesophageal reflux disease) Glaucoma H/O: HTN (hypertension) Hypercholesteremia Hypoglycemia Hypothyroid IBS (irritable bowel syndrome) Peripheral neuropathy Schizophrenia Thyroid cancer Surgical History Surgical History H/O foot surgery History of thyroidectomy Hx of bilateral cataract extraction Previous section x2. Family History Family History (Reviewed 08/26/20 @ 00:36 by Isiah Arce,
[2020-08-26] MEDS: SODIUM CHLORIDE 0.9% IV 1,000 ML 999 ML IV CONT (00:42)
[2020-08-26 00:57] LABS: Basophils Percent Auto 0.1 % (0.2-1.2); Hematocrit 37.5 % (37.0-47.0); Hemoglobin 12.3 g/dL (12.0-15.0); Immature Granulocyte Absolute 0.01 K/mm3 (0.00-0.031); Immature Granulocyte Percent A 0.1 % (0-0.5); Lymphocytes Absolute Auto 2.11 K/mm3 (0.9-3.2); Lymphocytes Percent Auto 25.9 % (18.3-44.2); Mean Corpuscular HGB Conc 32.8 g/dl (32-36); Mean Corpuscular Hemoglobin 28.9 pg (26-34); Monocytes Absolute Auto 0.6 K/mm3 (0.1-0.6); Monocytes Percent Auto 7.9 % (2.6-8.5); Neutrophils Absolute Auto 5.4 K/mm3 (1.3-6.7); Platelet Count Result 308 k/mm3 (150-375); Red Blood Count 4.26 M/mm3 (4.2-5.4); Red Cell Distribution Width 13.2 % (11.5-14.5); White Blood Count 8.2 K/mm3 (4.5-10.0)
[2020-08-26 00:59] LABS: Lactic Acid Reflex 1.3 mmol/L (0.7-2.1); Lipase 53 U/L (23-300)
[2020-08-26 01:00] LABS: INR 0.9
[2020-08-26 01:01] LABS: Alanine Aminotransferase 20 U/L (4-35); Alkaline Phosphatase 128 U/L (38-126); Anion Gap 4 mmol/L (8-16); Aspartate Amino Transferase 24 U/L (14-36); Bilirubin,Total 0.2 mg/dL (0.2-1.3); Blood Urea Nitrogen 19 mg/dL (7-17); Calcium 9.5 mg/dL (8.4-10.2); Carbon Dioxide 29 mmol/L (22-30); Chloride 101 mmol/L (98-107); Creatine Kinase 84 U/L (30-135); Estimated Glomerular Filt Rate > 60; Glucose 229 mg/dL (65-105); Partial Thromboplastin Time 39.4 SECONDS (22.3-36.8); Potassium 3.8 mmol/L (3.4-5.0); Sodium 134 mmol/L (137-145)
[2020-08-26 01:12] LABS: Troponin I < 0.012 ng/mL (0.000-0.034)
[2020-08-26 01:14] LABS: Add Urine Microscopic? YES; Appearance Urine Clear (Clear); Bilirubin Urine Negative (Negative); Blood Urine Negative (Negative); Color Urine Yellow (Yellow); Glucose Urine UA 2+ mg/dL (Negative); Ketones Urine Trace mg/dL (Negative); Leukocyte Esterase Ur Negative LEU/UL (Negative); Mucus Urine Rare /lpf; Nitrate Urine Negative (Negative); Protein Urine 2+ mg/dL (Negative); Specific Grav Ur 1.019 (1.001-1.035); Squamous Epithelial Cell Urine Rare /hpf (Few); Urobilinogen Urine Negative mg/dL (<2.0); WBC Urine 0-3 /hpf
--- NOTE | 2020-08-26 01:58 | PC.NURSE ---
called the [facility] spoke with Cris BYERS
[2020-08-26] MEDS: MAGNESIUM CITRATE 300 ML BTL PO (01:59)
--- NOTE | 2020-08-26 02:01 | PC.NURSE ---
[facility] accepted return to [facility] ETA 0230 Trip#[id number]
== END 2020-08-26 04:35 ==
PROVIDERS: Emergency Provider Emergency Medicine
DX: R10.84 Generalized abdominal pain (principal); K59.00 Constipation, unspecified; H40.9 Unspecified glaucoma; I10 Essential (primary) hypertension; E78.00 Pure hypercholesterolemia, unspecified; K58.9 Irritable bowel syndrome, unspecified; K21.9 Gastro-esophageal reflux disease without esophagitis; E10.42 Type 1 diabetes mellitus with diabetic polyneuropathy; F41.9 Anxiety disorder, unspecified; F31.9 Bipolar disorder, unspecified; Z85.850 Personal history of malignant neoplasm of thyroid; F20.9 Schizophrenia, unspecified; E89.0 Postprocedural hypothyroidism; Z98.42 Cataract extraction status, left eye; Z98.41 Cataract extraction status, right eye
CPT/HCPCS: 36415; 70450; 71045; 74177; 80053; 81001; 82550; 82948; 83605; 83690; 84484; 85025; 85610; 85730; 93005; 96360; 99284; A9270; J7030; Q9967

== ENCOUNTER 2020-11-02 01:15 | Inpatient (IN) | payer MEDICARE, MEDICAID, SELFPAY ==
[2020-11-02] VITALS (33 sets, daily range): BP systolic 131–166; BP diastolic 48–69; PULSE 77–98; RESP 15–24; TEMP 35.9–36.8; O2SAT 94–100; BMI 45.8
--- NOTE | ~2020-11-02 | XR_ITS ---
EXAMINATION: XR chest 1V portable DATE: 11/02/2020 02:11 INDICATION: Dyspnea. TECHNIQUE: A single frontal view of the chest was obtained. COMPARISON: Chest single view 08/26/2020, CT abdomen and pelvis 08/26/2020 FINDINGS: The patient is rotated to her left. There are airspace opacities in the perihilar regions a nd at the lung bases. There are small pleural effusions. No pneumothorax. Cardiomegaly is noted. IMPRESSION: 1. Airspace opacities in the perihilar regions and at the lung bases, consistent with pulmonary edema and atelectasis versus pneumonia. 2. Small pleural effusions. 3. Cardiomegaly. Reviewed, dictated and finalized at location A. IMPRESSION: 1. Airspace opacities in the perihilar regions and at the lung bases, consisten t with pulmonary edema and atelectasis versus pneumonia. 2. Small pleural effusions. 3. Cardiomegaly.
--- NOTE | ~2020-11-02 | US_ITS ---
EXAMINATION: US venous doppler [facility] DATE: 11/02/2020 14:40 INDICATION: Lower limb edema. TECHNIQUE: Grayscale ultrasound images without and with compression and Doppler ultrasound images of right lower extremity veins were obtained. The patient refused additional imaging. COMPARISON: None. FINDINGS: The visualized portions of right common femoral vein and greater saphenous vein outflow are patent. IMPRESSION: 1. Patent right common femoral vein and right greater saphenous vein outflow. The patient refused ad ditional imaging. Reviewed, dictated and finalized at location A. IMPRESSION: 1. Patent right common femoral vein and right greater saphenous vein outflow. The patient refused additional imaging.
--- NOTE | ~2020-11-02 | XR_ITS ---
EXAMINATION: XR chest 1V portable DATE: 11/03/2020 06:00 INDICATION: Pulmonary edema. TECHNIQUE: A single frontal view of the chest was obtained. COMPARISON: Chest single view 11/02/2020 FINDINGS: There are small pleural effusions. There is a diffuse interstitial pattern, consistent with mild pulmonary edema. No pneumothorax. Cardiomegaly is noted. IMPRESSION: 1. Small pleural effusions. 2. Mild pulmonary edema. 3. Cardiomegaly. Reviewed, dictated and finalized at location A.
--- NOTE | 2020-11-02 01:18 | ECG_ITS ---
Measurements Intervals [place] Rate: 87 P: 58 NV: 159 QRS: -13 QRSD: 81 T: -10 QT: 372 QTc: 448 Interpretive Statements SINUS RHYTHM LOW QRS VOLTAGE IN PRECORDIAL LEADS BORDERLINE R WAVE PROGRESSION, ANTERIOR LEADS BORDERLINE T WAVE ABNORMALITY- INFERIOR LEADS BASELINE ARTIFACT- II, III, AVF, V3, V6 BORDERLINE ECG Electronically Signed On 11-02-2020 6:52:44 CDT by Francis Blanchard D.O.
--- NOTE | 2020-11-02 01:43 | ED.GENADULT ---
HPI - General Adult General Chief complaint: Shortness of Breath/Dyspnea Stated complaint: SOB/ new dx CHF Source: RN notes reviewed History of Present Illness HPI narrative: [facility] for shortness of breath. EMS was called for patient respiratory distress and they arrived to find the patient on a nonrebreather that had been started at the facility in respiratory distress at that time did increase a nonrebreather from 5 L/min to 15 L/min and the patient symptoms did improve at this time the patient states she has been feeling short of breath but denies any cough she states shortness of breath is worse with any exertion or laying flat she states she normally does not wear oxygen and was recently diagnosed with heart failure she denies any fevers or chills chest pain abdominal pain nausea vomiting or any other symptoms Related Data Home Medications Medication Instructions Recorded Confirmed cholecalciferol (vitamin D3) 1,000 unit PO BID 06/01/19 09/17/19 cyanocobalamin (vitamin B-12) 1,000 mcg IM MONTHLY 06/01/19 09/17/19 escitalopram oxalate 20 mg PO DAILY 06/01/19 09/17/19 lidocaine HCl [Aspercreme 1 applic TOPICAL QID PRN 06/01/19 09/17/19 (lidocaine HCl)] meclizine 12.5 mg PO TID 06/01/19 09/17/19 nystatin 1 applic TOPICAL BID PRN 06/01/19 09/17/19 polyethylene glycol 3350 [Miralax] 17 g PO BID 06/01/19 09/17/19 risperidone 1 mg PO HS 06/01/19 09/17/19 sennosides-docusate sodium [Senna 2 tab-cap PO BID 06/01/19 09/17/19 Plus] Glucagon Emergency Kit (human) 1 mg SUBCUT Q20M PRN 07/29/19 09/17/19 bisacodyl [Dulcolax (bisacodyl)] 10 mg PO DAILY PRN 07/29/19 09/17/19 melatonin 5 mg PO HS PRN 07/29/19 09/17/19 ondansetron HCl [Zofran] 4 mg PO Q6H PRN 07/29/19 09/17/19 acetaminophen 500 mg tablet 500 mg PO Q6H PRN 01/23/20 aluminum-mag hydroxide-simethicone 5 ml PO ONCE 01/23/20 200 mg-200 mg-20 mg/5 mL oral susp fluticasone propionate 50 1 inhalation INHALATION Q12H 01/23/20 mcg/actuation blister powder for inhalation guaifenesin 100 mg/5 mL oral liquid 200 mg PO Q4H PRN 01/23/20 magnesium hydroxide 400 mg/5 mL 5 ml PO DAILY 01/23/20 oral suspension miconazole nitrate 2 % topical 1 spray TOPICAL DAILY 01/23/20 spray powder polyvinyl alcohol-povidone (PF) 1 drop EACH EYE Q4-6H PRN 01/23/20 1.4 %-0.6 % eye drops in a dropperette tasimelteon 20 mg capsule 20 mg PO ONCE 01/23/20 trazodone 50 mg tablet 50 mg PO TID 01/23/20 triamcinolone acetonide 0.1 % 1 applic DENTAL BID 01/23/20 dental paste albuterol sulfate INHALATION 11/02/20 furosemide 11/02/20 ipratropium-albuterol ml INHALATION 11/02/20 Allergies Allergy/AdvReac Type Severity Reaction Status Date / Time chlorpromazine Allergy Unknown Unknown Verified 11/02/20 01:28 lactase Allergy Unknown Unknown Verified 11/02/20 01:28 levofloxacin Allergy Unknown Unknown Verified 11/02/20 01:28 Penicillins Allergy Unknown Unknown Verified 11/02/20 01:28 Sulfa (Sulfonamide Allergy Unknown Unknown Verified 11/02/20 01:28 Antibiotics) sulfanilamide Allergy Unknown Unknown Verified 11/02/20 01:28 thiothixene Allergy Unknown Unknown Verified 11/02/20 01:28 CHLORPROMAZINE HCL Allergy Unknown Unknown Uncoded 08/26/20 00:41 THIOTHIXENE HCL Allergy Unknown Unknown Uncoded 08/26/20 00:41 Review of Systems Review of Systems: Narrative: Gen.: Denies fevers or chills ENT: Denies congestion Respiratory: See HPI CV: Denies chest pain or palpitations GI: Denies abdominal pain nausea, emesis or diarrhea Musculoskeletal: Denies back pain or muscle pain Neuro: Denies numbness, tingling, weakness or focal weakness Skin: Denies rash Except as documented, all other systems reviewed and negative PMFSH Past Medical History Medical History (Updated 11/02/20 @ 04:23 by Raoul Samuel DO) Anxiety Bipolar 1 disorder Cataracts, bilateral Charcot gait Colitis Depression DM I (diabetes mellitus, type I) GERD (gastro
[2020-11-02 01:45] LABS: Hematocrit 29.8 % (37.0-47.0); Hemoglobin 9.4 g/dL (12.0-15.0); Immature Granulocyte Absolute 0.03 K/mm3 (0.00-0.031); Immature Granulocyte Percent A 0.3 % (0-0.5); Lymphocytes Absolute Auto 1.05 K/mm3 (0.9-3.2); Lymphocytes Percent Auto 11.2 % (18.3-44.2); Mean Corpuscular HGB Conc 31.5 g/dl (32-36); Mean Corpuscular Hemoglobin 29.5 pg (26-34); Mean Corpuscular Volume 93.4 fl (80-100); Mean Platelet Volume 11.3 fl (7.4-10.4); Monocytes Absolute Auto 0.5 K/mm3 (0.1-0.6); Monocytes Percent Auto 5.7 % (2.6-8.5); Neutrophils Absolute Auto 7.7 K/mm3 (1.3-6.7); Neutrophils Percent Auto 82.8 % (45.5-73.1); Platelet Count Result 269 k/mm3 (150-375); Red Blood Count 3.19 M/mm3 (4.2-5.4); Red Cell Distribution Width 13.8 % (11.5-14.5); White Blood Count 9.3 K/mm3 (4.5-10.0)
[2020-11-02 01:54] LABS: Anion Gap 9 mmol/L (8-16); Blood Urea Nitrogen 11 mg/dL (7-17); Calcium 9.3 mg/dL (8.4-10.2); Carbon Dioxide 25 mmol/L (22-30); Chloride 97 mmol/L (98-107); Estimated CRCL calculation 107 ml/min; Estimated Glomerular Filt Rate > 60; Glucose 186 mg/dL (65-105); Lactic Acid Reflex 0.6 mmol/L (0.7-2.1); Potassium 3.9 mmol/L (3.4-5.0); Sodium 131 mmol/L (137-145)
[2020-11-02 02:04] LABS: Alveolar/Arterial O2 Gradient 151.9 mmHg; Base Excess ABG 3.6 mEq/l (+/-2.0); Fractional Inspired Oxygen 36 %; Oxygen Content ABG 12.3 %vol (16.0-22.0); Oxyhemoglobin 82.7 % THb (90.0-100.0); PCO2 ABG 47.9 mmHg (35.0-45.0); PO2 FiO2 Ratio Arterial Blood 1.37 %; Total Hemoglobin 10.6 g/dL (12.0-18.0)
[2020-11-02 02:04] LABS: Prothrombin Time 12.9 Seconds (11.1-14.7)
[2020-11-02 02:06] LABS: NT Pro B Type Natriuretic Pept 2580 pg/mL (5-100); Troponin I < 0.012 ng/mL (0.000-0.034)
[2020-11-02 02:10] LABS: PO2 ABG 49.2 mmHg (80.0-100.0)
[2020-11-02 02:11] LABS: Oxygen Saturation ABG 84.4 % (95.0-100.0)
[2020-11-02 02:12] LABS: Device NASAL CANNULA; Modified Allen's Test Pass; Site Drawn RIGHT RADIAL
[2020-11-02 02:21] LABS: Partial Thromboplastin Time 43.1 SECONDS (22.3-36.8)
--- NOTE | 2020-11-02 02:59 | PC.NURSE ---
Patient assisted to BSC upon request to urinate. Patient informed that it would be best if she use a bedpan d/t her sob. Patient refused. Patient assisted back onto bed after urinating in BSC, per o2 sat was 84% on the 4L. After repositioned on stretcher, and instructed on breathing technique, her O2 sat increased to 98% on the 4L. ERP notified.
[2020-11-02] MEDS: FUROSEMIDE INJ 40 MG/4 ML VIAL IV PUSH ×3 (03:12→17:14)
--- NOTE | 2020-11-02 03:29 | ECHO_ITS ---
Patient Info Name: Miladys Felipe Age: 69 years : 1950 Gender: Female Ht: 66 in Wt: 293 lbs BSA: 2.56 m2 HR: 77 bpm BP: 152 / 53 mmHg Heart Rhythm: Sinus Rhythm Technical Quality: Poor Exam Date: 11/02/2020 9:45 AM Exam Location: [facility] Patient Status: Outpatient Admit Date: 11/02/2020 Staff Ordering Physician: Izabel Holt DO Density Control Puncher: Farhana Rader RDCS Attending Provider: Izabel Holt DO Referring Physician: Yanet BOOTHE; Exam Type: CA echo dop color flow w con Study Info Indications I50.9 - Heart failure, unspecified Complete two-dimensional, color flow and Doppler transthoracic echocardiogram is performed with contrast to opacify the left ventricle and to improve the deliniation of the left ventricle endocardial borders. Contrast/Agitated Saline Contrast/Ag. Saline: Definity Amount: 1.00 ml Administered By: Amy Forrester RN Existing IV Access: Yes IV Access Condition: patent with no signs of infiltration Reason for Poor Study: patient body habitus Summary 1. Left ventricular chamber dimension is normal. 2. Left ventricular systolic function is normal, estimated at 65-70%. 3. There is mildly increased left ventricular wall thickness. 4. The left ventricular diastolic function is grade II diastolic dysfunction. 5. Left atrial chamber dimension is mildly enlarged. 6. There is mild aortic valve stenosis with a peak velocity of 198.86 cm/s, mean gradient of 10 mmHg, and aortic valve area of 1.75 cm2. 7. There is moderate aortic valve calcification. 8. There is mild mitral valve regurgitation. 9. The mitral valve annulus is severely calcified. 10. The mitral valve has thickened leaflets. 11. There is mild tricuspid valve regurgitation. 12. Severe pulmonary hypertension, estimated pulmonary arterial systolic pressure is 69 mmHg. 13. There is small pericardial effusion. Left Ventricle Left ventricular chamber dimension is normal. Left ventricular systolic function is normal, estimated at 65-70%. There is mildly increased left ventricular wall thickness. The left ventricular diastolic function is grade II diastolic dysfunction. Right Ventricle Right ventricular chamber dimension is normal. Right ventricular systolic function is normal. Left Atria Left atrial chamber dimension is mildly enlarged. Right Atria Right atrial chamber dimension is normal. Atrial Septum Intact interatrial septum visualized by color flow imaging. Aortic Valve The aortic valve is trileaflet. There is mild aortic valve stenosis with a peak velocity of 198.86 cm/s, mean gradient of 10 mmHg, and aortic valve area of 1.75 cm2. There is trace aortic valve regurgitation. There is moderate aortic valve calcification. Pulmonic Valve The pulmonic valve is not well visualized. There is no pulmonic valve stenosis. There is trace pulmonic regurgitation. Mitral Valve The mitral valve has thickened leaflets. There is no mitral valve stenosis. There is mild mitral valve regurgitation. The mitral valve annulus is severely calcified. Tricuspid Valve The tricuspid valve leaflets are normal. There is no significant tricuspid valve stenosis. There is mild tricuspid valve regurgitation. Severe pulmonary hypertension, estimated pulmonary arterial systolic pressure is 69 mmHg. Pericardium/Pleural The pericardium appears normal. There is small pericardial effusion. Inferi
--- NOTE | 2020-11-02 04:16 | PC.NURSE ---
Cris, [facility] nurse from [facility] calls to get update on patient. She also states the patient is normally on RA. Gave her update on patient and that she will be admitted.
--- NOTE | 2020-11-02 05:40 | ADMGEN ---
This patient, Miladys Felipe, was admitted to Medical Room 256-. Patient/family oriented to hospital policies and general routines including ID bracelet, bed and alarms, visiting hours, pain management, procedures, bathroom and other care routines, personal items, smoking policy, room service/diet, and visiting hours. Information on how to activate the Rapid Response Team has been discussed. Patient/Family are encouraged to report perceived risks to care and to ask questions if they do not understand what they are told or what they should do.
[2020-11-02 07:32] LABS: Troponin I < 0.012 ng/mL (0.000-0.034)
[2020-11-02 07:39] LABS: Glucose Point of Care 199 mg/dl (65-105)
[2020-11-02] MEDS: PERFLUTREN LIPID MICROSPHERES 1.5 ML VIAL DILUTED TO 10 ML TOTAL VOLUME IV PUSH (10:10)
[2020-11-02 10:13] LABS: Troponin I < 0.012 ng/mL (0.000-0.034)
[2020-11-02] MEDS: LIOTHYRONINE SODIUM 5 MCG TABLET PO (11:33)
--- NOTE | 2020-11-02 11:37 | PM.IMHP ---
H&P: HPI History of Present Illness Date/Time: PATIENT IS ADMITTED UNDER OBSERVATION STATUS 11/02/20 11:37 Chief Complaint: Shortness of breath Narrative: 69yo female with DM type I, bipolar d/o and obesity here for shortness of breath. Patient states she has been having trouble sleeping for the past 2 weeks requiring her to sleep propped up. No PND. as a cough for the past week productive for clear sputum. Does have bilateral lower extremity foot braces due to her Charcot foot. She however is mostly in a wheelchair due to her being a fall risk. Her SOB worsened on the day of admission and she was brought into the ED for evaluation. She denies CP, palpitations, hx of DAYANNA, fever, chills, nausea, vomiting, odynophagia, dysphagia or abd pain. She is incontinent of urine but no dysuria, hematuria or hx of spinal stenosis. Hx of DM Type I since she was an infant. 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 She also had tingling in her bilateral LE and has left Charcot foot. She has longstanding psychiatric illness and was what sounds like catatonia recently and medications were changed. her mood has been improved over the past month. Patient brought to the ED for evaluation. She was hemodynamically stable. BNP 2580. ABG 7.40/48/49 on 4L (currently 97% on 4L). CXR showing CMG, airspace opacities in the perihilar regions and at the lung bases and small pleural effusions. Lasix x1 was given. Pateint states her symptoms are improved this morning. Review of Systems Review of Systems: All systems reviewed & are unremarkable except as noted in HPI and below PMFSH Past Medical History Medical History (Updated 11/04/20 @ 11:51 by Isiah Gordillo MD) Anxiety Bipolar 1 disorder Cataracts, bilateral Charcot gait Colitis Depression DM I (diabetes mellitus, type I) GERD (gastroesophageal reflux disease) Glaucoma H/O: HTN (hypertension) Hypercholesteremia Hypoglycemia Hypothyroid IBS (irritable bowel syndrome) Morbid obesity Peripheral neuropathy Pulmonary hypertension Schizophrenia Thyroid cancer Surgical History Surgical History (Updated 11/02/20 @ 11:41 by Isiah Gordillo MD) H/O foot surgery History of thyroidectomy Hx laparoscopic cholecystectomy Hx of bilateral cataract extraction Previous section x2. Family History Family History Mother Family history of thyroid disease Sibling Family history of thyroid disease Father Cancer Other Family history of arthritis Family history of cataracts Family history of glaucoma Family history of hearing loss Family history of lung disease Social History Social History (Updated 11/02/20 @ 13:26 by Isiah Gordillo MD) Social History: Lifelong nonsmoker but exposed to second hand smoke. No alcohol or drug use. She resides at [facility] and [facility]. She is a full code. She nominates her mom to be the individual to make medical decisions for her if she is unable but plans to change this over to her sister. Smoking status: Never smoker Alcohol intake: never Substance use: never Gender identity (if verbalized by the patient): Female Spiritual care concerns: No Agree to blood products: Yes Meds Home Medications and Allergies Home Medications Medication Instructions Recorded Confirmed Type escitalopram oxalate 20 mg PO DAILY 06/01/19 11/02/20 History meclizine 12.5 mg PO TID 06/01/19 11/02/20 History nystatin 1 applic TOPICAL BID PRN 06/01/19 11/02/20 History risperidone 1 mg PO HS 06/01/19 11/02/20 History sennosides-docusate sodium [Senna 2 tab-cap PO DAILY 06/01/19 11/02/20 History Plus] metoprolol tartrate 25 mg PO Q12HR #60 tablet 06/04/19 11/02/20 Rx Glucagon Emergency Kit (human) 1 mg SUBCUT Q20M PRN 07/29/19 11/02/20 History bisacodyl [Dulcolax (bisacodyl)] 5 m
[2020-11-02] MEDS: FLUTICASONE PROPIONATE 0.05% NA SPR 16 GM BTL (*BKC) 2 SPRAY NASAL (12:14)
[2020-11-02] MEDS: SODIUM CHLORIDE 1 GM TABLET PO ×2 (12:16→17:14)
[2020-11-02] MEDS: MECLIZINE HCL 12.5 MG TABLET PO ×2 (12:17→17:14)
[2020-11-02 12:36] LABS: Glucose Point of Care 321 mg/dl (65-105)
[2020-11-02] MEDS: INSULIN ASPART (*BKC) 100 UNITS/ML SUB-Q ×2 (12:37→17:24)
--- NOTE | 2020-11-02 14:43 | PC.NURSE ---
Dr Gordillo notified that patient refused ultrasound.
[2020-11-02] MEDS: BISACODYL 5 MG TABLET EC PO (17:15)
[2020-11-02] MEDS: SENNA/DOCUSATE SODIUM TABLET 1 TAB PO (17:16)
[2020-11-02 17:22] LABS: Glucose Point of Care 285 mg/dl (65-105)
[2020-11-02] MEDS: TOLNAFTATE 1% POWDER 45 GM BTL 1 APPLIC TOPICAL (21:16)
[2020-11-02] MEDS: METOPROLOL TARTRATE 25 MG TABLET PO (21:16)
[2020-11-02] MEDS: risperiDONE 1 MG TABLET PO (21:17)
[2020-11-02 21:30] LABS: Glucose Point of Care 96 mg/dl (65-105)
[2020-11-02 21:30] LABS: Glucose Point of Care 61 mg/dl (65-105)
[2020-11-03] VITALS (11 sets, daily range): BP systolic 146–167; BP diastolic 50–62; PULSE 66–80; RESP 18–20; TEMP 36.4–36.9; O2SAT 90–100
[2020-11-03] MEDS: INSULIN GLARGINE (*BKC) 100 UNITS/ML 15 UNITS SUB-Q (00:08)
[2020-11-03 00:12] LABS: Glucose Point of Care 88 mg/dl (65-105)
[2020-11-03 05:06] LABS: Base Excess ABG 8.5 mEq/l (+/-2.0); Fractional Inspired Oxygen 36 %; HCO3 ABG 33.8 mEq/l (22.0-26.0); Oxygen Content ABG 14.4 %vol (16.0-22.0); Oxyhemoglobin 94.4 % THb (90.0-100.0); PCO2 ABG 50.7 mmHg (35.0-45.0); PO2 ABG 79.9 mmHg (80.0-100.0); PO2 FiO2 Ratio Arterial Blood 2.22 %; Total Hemoglobin 10.8 g/dL (12.0-18.0); pH ABG 7.442 (7.350-7.450)
[2020-11-03 05:08] LABS: Device NASAL CANNULA; Site Drawn RIGHT BRACHIAL
[2020-11-03] MEDS: LEVOTHYROXINE SODIUM 112 MCG TABLET BY MOUTH (05:59)
[2020-11-03 08:16] LABS: Glucose Point of Care 136 mg/dl (65-105)
--- NOTE | 2020-11-03 08:24 | PM.IMPN ---
Progress Note: A&P Assessment and Plan (1) Acute respiratory failure with hypoxia: Code(s): J96.01 - Acute respiratory failure with hypoxia Status: Acute Assessment and Plan: Patient with acute hypoxia on admission. pCO2 mildly elevated as well but normal pH to suggest this is more chronic. Suspect related to CHF exacerbation. Continue Lasix IV. She has neb treatments available as needed. Concern for underlying sleep apnea as well. (2) CHF (congestive heart failure): Code(s): I50.9 - Heart failure, unspecified Status: Acute Assessment and Plan: Echo showing EF 65-70%, Grade II diastolic dysfunction and severe pulmonary HTN. BNP 2580 and CXR showing perihilar and BLL airspace opacities. Probably LV diastolic dysfunction and with right sided failur causing CHF exacerbation. Apnea link normal on 4L; may need to repeat once off O2. Repeat CXR again showing mild pulmonary edema. Will continue IV Lasix for today and wean O2 as tolerated. Continue daily weights. (3) Hyponatremia: Code(s): E87.1 - Hypo-osmolality and hyponatremia Status: Acute Assessment and Plan: Na slightly low at 131. Could be related to the CHF and/or hyperglycemia. Consider also chronic component due to the psychiatric medications. Repeat values pending. Continue NaCl tablets. Follow with diuretics. (4) Type 1 diabetes mellitus: Code(s): E10.9 - Type 1 diabetes mellitus without complications Status: Acute Assessment and Plan: The patient's blood glucose was reviewed on 11/03 Glucose dropped to 61 so Lantus cute in half overnight and sliding scale decreased. Continue AccuCheks covering with her sliding scale. Hypoglycemia protocol available as needed. Continue Lantus for now but monitor for recurrent low glucose values. A1c pending. (5) H/O: HTN (hypertension): Code(s): Z86.79 - Personal history of other diseases of the circulatory system Status: Acute Assessment and Plan: Patient's blood pressure was reviewed on 11/03 Blood pressure mildly elevated with SBP mostly 130-150. Continue Lopressor. Norvasc on hold. Renal function normal. Add Lisinopril for renoprotective effects. Will continue to follow. (6) Anemia: Code(s): D64.9 - Anemia, unspecified Status: Acute Assessment and Plan: Hgb 9.4 on admission. Possibly chronic. Baseline hgb 9-12 range past 2 years. Labs today including repeat HH and hernan studies are pending. (7) Morbid obesity: Code(s): E66.01 - Morbid (severe) obesity due to excess calories Status: Acute Assessment and Plan: BMI 46. Patient would benefit from healthy lifestyle choices. (8) Schizophrenia: Code(s): F20.9 - Schizophrenia, unspecified Status: Acute Assessment and Plan: Mood stable. Continue Risperidone. (9) DVT prophylaxis: Code(s): Z29.9 - Encounter for prophylactic measures, unspecified Status: Acute Assessment and Plan: Lovenox Subjective Date/time seen: 11/03/20 08:24 Interval history: 69yo female with DM type I, bipolar d/o and obesity here for shortness of breath. Patient slept well last night. She still feels tired this morning however. Shortness of breath is better overall. No chest pain. No nausea or vomiting. She did not get out of bed yesterday. She did refuse her lower extremity venous Dopplers because of pain. Able to sleep almost flat in bed overnight. Exam Narrative: Exam Narrative: AF 97.5 146/52 71 20 99% 4L Gen - NARD lying almost flat in bed Chest - bibasilar inspiratory crackles o/w clear. Nml RR CV - RRR. S1-S2. Tele showing no significnat dysrhythmia Abd - soft, obese, NT Ext - R>L bilateral lower extremity edema. Psych - normal mood and affect. Patient is pleasant and cooperative. Skin - warm and dry. Objective Data Vital Signs Vital Signs: Vital Signs - 24 hr
[2020-11-03 09:14] LABS: Hematocrit 29.7 % (37.0-47.0); Hemoglobin 9.4 g/dL (12.0-15.0); Immature Granulocyte Absolute 0.02 K/mm3 (0.00-0.031); Immature Granulocyte Percent A 0.3 % (0-0.5); Lymphocytes Percent Auto 23.5 % (18.3-44.2); Mean Corpuscular HGB Conc 31.6 g/dl (32-36); Mean Corpuscular Hemoglobin 29.6 pg (26-34); Mean Corpuscular Volume 93.4 fl (80-100); Mean Platelet Volume 11.2 fl (7.4-10.4); Monocytes Absolute Auto 0.5 K/mm3 (0.1-0.6); Monocytes Percent Auto 8.5 % (2.6-8.5); Neutrophils Percent Auto 67.7 % (45.5-73.1); Platelet Count Result 261 k/mm3 (150-375); Red Blood Count 3.18 M/mm3 (4.2-5.4); Red Cell Distribution Width 13.6 % (11.5-14.5)
[2020-11-03] MEDS: ESCITALOPRAM OXALATE 10 MG TABLET 20 MG PO (09:23)
[2020-11-03] MEDS: METOPROLOL TARTRATE 25 MG TABLET PO ×2 (09:24→20:46)
[2020-11-03] MEDS: SENNA/DOCUSATE SODIUM TABLET 1 TAB PO ×2 (09:24→16:14)
[2020-11-03] MEDS: SODIUM CHLORIDE 1 GM TABLET PO ×3 (09:24→16:15)
[2020-11-03] MEDS: LIOTHYRONINE SODIUM 5 MCG TABLET PO ×2 (09:24→11:22)
[2020-11-03] MEDS: lisinopriL 5 MG TABLET PO (09:24)
[2020-11-03] MEDS: BISACODYL 5 MG TABLET EC PO ×2 (09:24→16:14)
[2020-11-03] MEDS: ASPIRIN 81 MG ENTERIC TABLET PO (09:24)
[2020-11-03] MEDS: MECLIZINE HCL 12.5 MG TABLET PO ×3 (09:24→16:15)
[2020-11-03] MEDS: FUROSEMIDE INJ 40 MG/4 ML VIAL IV PUSH ×2 (09:25→16:15)
[2020-11-03] MEDS: FLUTICASONE PROPIONATE 0.05% NA SPR 16 GM BTL (*BKC) 2 SPRAY NASAL (09:25)
[2020-11-03] MEDS: TOLNAFTATE 1% POWDER 45 GM BTL 1 APPLIC TOPICAL ×2 (09:27→20:47)
[2020-11-03 09:31] LABS: Alanine Aminotransferase 23 U/L (4-35); Albumin Level 3.1 g/dL (3.5-5.1); Alkaline Phosphatase 122 U/L (38-126); Anion Gap 3 mmol/L (8-16); Aspartate Amino Transferase 25 U/L (14-36); Bilirubin,Total 0.7 mg/dL (0.2-1.3); Blood Urea Nitrogen 7 mg/dL (7-17); Calcium 8.7 mg/dL (8.4-10.2); Carbon Dioxide 36 mmol/L (22-30); Chloride 95 mmol/L (98-107); Estimated CRCL calculation 101 ml/min; Estimated Glomerular Filt Rate > 60; Glucose 122 mg/dL (65-105); Magnesium 1.7 mg/dL (1.6-2.3); Phosphorus 3.7 mg/dL (2.5-4.5); Potassium 3.6 mmol/L (3.4-5.0); Sodium 134 mmol/L (137-145)
[2020-11-03 09:48] LABS: Iron 30 ug/dL (37-170)
[2020-11-03 10:00] LABS: Percent Iron Saturation 12 % (20-50)
[2020-11-03 10:06] LABS: Hemoglobin A1C 7.4 % (<5.7)
[2020-11-03] MEDS: THERAPEUTIC MULTIVITAMINS/MINERALS TAB (*BKC) 1 TABLET BY MOUTH (10:19)
[2020-11-03 10:40] LABS: Folic Acid 13.7 ng/mL (2.76->20)
[2020-11-03 12:01] LABS: Glucose Point of Care 271 mg/dl (65-105)
[2020-11-03] MEDS: INSULIN ASPART (*BKC) 100 UNITS/ML SUB-Q ×2 (12:10→19:39)
[2020-11-03 16:46] LABS: Glucose Point of Care 405 mg/dl (65-105)
[2020-11-03] MEDS: INSULIN ASPART (*BKC) 100 UNITS/ML 12 UNITS SUB-Q (17:33)
[2020-11-03 19:26] LABS: Glucose Point of Care 361 mg/dl (65-105)
[2020-11-03] MEDS: BISACODYL 10 MG SUPPOSITORY RECTAL (19:50)
[2020-11-03] MEDS: INSULIN GLARGINE (*BKC) 100 UNITS/ML 22 UNITS SUB-Q (20:44)
[2020-11-03] MEDS: risperiDONE 1 MG TABLET PO (20:46)
[2020-11-03 21:15] LABS: Glucose Point of Care 261 mg/dl (65-105)
[2020-11-04 05:01] VITALS: BP 160/59; PULSE 66; RESP 20; TEMP 36.4; O2SAT 100
[2020-11-04 05:48] LABS: Hematocrit 30.4 % (37.0-47.0); Hemoglobin 9.6 g/dL (12.0-15.0); Immature Granulocyte Absolute 0.01 K/mm3 (0.00-0.031); Immature Granulocyte Percent A 0.2 % (0-0.5); Lymphocytes Absolute Auto 2.02 K/mm3 (0.9-3.2); Lymphocytes Percent Auto 35.3 % (18.3-44.2); Mean Corpuscular HGB Conc 31.6 g/dl (32-36); Mean Corpuscular Hemoglobin 29.4 pg (26-34); Mean Corpuscular Volume 93.3 fl (80-100); Mean Platelet Volume 11.1 fl (7.4-10.4); Monocytes Absolute Auto 0.6 K/mm3 (0.1-0.6); Monocytes Percent Auto 10.3 % (2.6-8.5); Neutrophils Absolute Auto 3.1 K/mm3 (1.3-6.7); Neutrophils Percent Auto 54.2 % (45.5-73.1); Platelet Count Result 287 k/mm3 (150-375); Red Blood Count 3.26 M/mm3 (4.2-5.4); Red Cell Distribution Width 13.3 % (11.5-14.5); White Blood Count 5.7 K/mm3 (4.5-10.0)
[2020-11-04 05:59] LABS: Albumin Level 3.2 g/dL (3.5-5.1); Anion Gap 5 mmol/L (8-16); Blood Urea Nitrogen 12 mg/dL (7-17); Calcium 8.6 mg/dL (8.4-10.2); Carbon Dioxide 34 mmol/L (22-30); Chloride 95 mmol/L (98-107); Estimated CRCL calculation 85 ml/min; Estimated Glomerular Filt Rate > 60; Glucose 77 mg/dL (65-105); Magnesium 1.7 mg/dL (1.6-2.3); Phosphorus 3.5 mg/dL (2.5-4.5); Potassium 3.4 mmol/L (3.4-5.0); Sodium 134 mmol/L (137-145)
[2020-11-04] MEDS: LEVOTHYROXINE SODIUM 112 MCG TABLET BY MOUTH (06:45)
[2020-11-04 08:12] LABS: Glucose Point of Care 91 mg/dl (65-105)
[2020-11-04] MEDS: FERROUS SULFATE 324 MG TABLET PO (08:17)
[2020-11-04] MEDS: ASPIRIN 81 MG ENTERIC TABLET PO (08:17)
[2020-11-04] MEDS: BISACODYL 5 MG TABLET EC PO (08:17)
[2020-11-04] MEDS: LIOTHYRONINE SODIUM 5 MCG TABLET PO ×2 (08:17→11:57)
[2020-11-04] MEDS: SODIUM CHLORIDE 1 GM TABLET PO ×2 (08:17→12:00)
[2020-11-04] MEDS: ESCITALOPRAM OXALATE 10 MG TABLET 20 MG PO (08:18)
[2020-11-04] MEDS: MECLIZINE HCL 12.5 MG TABLET PO ×2 (08:18→12:00)
[2020-11-04] MEDS: SENNA/DOCUSATE SODIUM TABLET 1 TAB PO (08:18)
[2020-11-04] MEDS: THERAPEUTIC MULTIVITAMINS/MINERALS TAB (*BKC) 1 TABLET BY MOUTH (08:18)
[2020-11-04 08:19] VITALS: PULSE 70
[2020-11-04] MEDS: METOPROLOL TARTRATE 25 MG TABLET PO (08:19)
[2020-11-04] MEDS: FLUTICASONE PROPIONATE 0.05% NA SPR 16 GM BTL (*BKC) 2 SPRAY NASAL (08:20)
[2020-11-04] MEDS: POTASSIUM CHLORIDE 20 MEQ TABLET PO (08:20)
[2020-11-04] MEDS: lisinopriL 10 MG TABLET PO (08:20)
[2020-11-04] MEDS: TOLNAFTATE 1% POWDER 45 GM BTL 1 APPLIC TOPICAL (08:20)
[2020-11-04] MEDS: FUROSEMIDE 20 MG TABLET PO (08:20)
[2020-11-04] MEDS: MAGNESIUM OXIDE 400 MG TABLET PO (08:20)
--- NOTE | 2020-11-04 11:45 | PM.DS ---
DS: Admitting Diagnosis Admitting Diagnosis Admitting Diagnosis: Shortness of breath DS: Discharge Diagnosis Discharge Diagnosis (1) Acute respiratory failure with hypoxia: Code(s): J96.01 - Acute respiratory failure with hypoxia Status: Acute (2) CHF (congestive heart failure): Code(s): I50.9 - Heart failure, unspecified Status: Acute (3) Pulmonary hypertension: Code(s): I27.20 - Pulmonary hypertension, unspecified Status: Acute (4) Hyponatremia: Code(s): E87.1 - Hypo-osmolality and hyponatremia Status: Acute (5) Type 1 diabetes mellitus: Code(s): E10.9 - Type 1 diabetes mellitus without complications Status: Acute (6) H/O: HTN (hypertension): Code(s): Z86.79 - Personal history of other diseases of the circulatory system Status: Acute (7) Anemia: Code(s): D64.9 - Anemia, unspecified Status: Acute (8) Morbid obesity: Code(s): E66.01 - Morbid (severe) obesity due to excess calories Status: Acute (9) Schizophrenia: Code(s): F20.9 - Schizophrenia, unspecified Status: Acute DS: Summary Hospital Course Reason for hospitalization: 69yo female with DM type I, bipolar d/o and obesity here for shortness of breath. Please see H&P for details. Hospital Course: Patient presents with acute hypoxia on admission. pCO2 mildly elevated as well but normal pH to suggest this is more chronic. Hypoxia related to CHF exacerbation. She had neb treatments available as needed. Echo showing EF 65-70%, Grade II diastolic dysfunction and severe pulmonary HTN. BNP 2580 and CXR showing perihilar and BLL airspace opacities. Probably LV diastolic dysfunction and with right sided failure causing CHF exacerbation. Concern for underlying sleep apnea as well but Apnea link normal on 4L; will need to repeat sleep study now that she is off O2. She was started on IV Lasix. I/O's inaccurate but daily weights show about a 18# weight loss. Home oral lasix dose increased at discharge. Na slightly low at 131 felt related to the CHF (fluid overload) and/or hyperglycemia. Consider also chronic component due to the psychiatric medications (she is on NaCl tablets chronically and these were continued here). Repeat Na values climbed to 134. For her DM, we resumed her home regiment but glucose dropped to 61 so Lantus cute in half one night and sliding scale decreased. We monitored with AccuCheks covering with her sliding scale. Hypoglycemia protocol was available as needed. A1c 7.4; patient may be too tightly controlled. For her HTN, the patient's blood pressure was monitored closely. We continued her metoprolol. We held the Norvasc due to the edema. BP was mildly elevated at times and Lisinopril added. Renal function remained normal. Hgb 9.4 on admission and remained stable. Possibly chronic. Baseline hgb 9-12 range past 2 years. Labs showing Iron 30, TIBC 247 with a 12% saturation. Ferritin 149. Iron started. B12 246 so MMA level drawn. Folate normal. BMI 42. Patient would benefit from healthy lifestyle choices. Patient's mood remained stable. We continued her Risperidone. Silvano had clinical improvement. She denies feeling SOB. Slept well without issue. Weaned off O2. She is requesting discharge. Patient overall did well and was able be discharged on 11/04/2020. Status at Discharge Cognitive/behavioral status at discharge: stable Time Spent with Patient Time attestation: Total time spent providing and/or coordinating discharge services: 32 minutes Exam Narrative: Exam Narrative: AF 96.6 160/59 70 20 100% ra Gen - NARD lying almost flat in bed Chest - CTA bilaterally. Nml RR CV - RRR. S1-S2. Abd - soft, obese, NT Ext - trace bilateral lower extremity edema. Psych - normal mood and affect. Patient is pleasant and cooperative. Skin - warm and dry. DS: Data Data Completed and Pending Labs on day of discharge: Labs f
[2020-11-04] MEDS: INSULIN ASPART (*BKC) 100 UNITS/ML SUB-Q (12:00)
[2020-11-04 12:06] LABS: Glucose Point of Care 297 mg/dl (65-105)
[2020-11-07 16:32] LABS: Methylmalonic Acid 132 nmol/L (87-318)
== END 2020-11-04 13:45 | DRG 291 ==
LOC: ANHED 04:23 → ANH2MED 04:42
PROVIDERS: Admitting Provider Internal Medicine; Emergency Provider Emergency Medicine; Visit Provider Internal Medicine
DX: I11.0 Hypertensive heart disease with heart failure (principal); J96.01 Acute respiratory failure with hypoxia; E87.1 Hypo-osmolality and hyponatremia; Z68.42 Body mass index [BMI] 45.0-49.9, adult; I50.33 Acute on chronic diastolic (congestive) heart failure; I50.810 Right heart failure, unspecified; F31.9 Bipolar disorder, unspecified; E10.42 Type 1 diabetes mellitus with diabetic polyneuropathy; E10.610 Type 1 diabetes mellitus with diabetic neuropathic arthropathy; E10.319 Type 1 diabetes mellitus with unspecified diabetic retinopathy without macular edema; E66.01 Morbid (severe) obesity due to excess calories; F20.9 Schizophrenia, unspecified; E89.0 Postprocedural hypothyroidism; I27.20 Pulmonary hypertension, unspecified; K21.9 Gastro-esophageal reflux disease without esophagitis; H40.9 Unspecified glaucoma; D64.9 Anemia, unspecified; E78.00 Pure hypercholesterolemia, unspecified; Z79.4 Long term (current) use of insulin; Z98.42 Cataract extraction status, left eye; Z98.41 Cataract extraction status, right eye; Z85.850 Personal history of malignant neoplasm of thyroid; Z79.899 Other long term (current) drug therapy
CPT/HCPCS: 36415; 36600; 71045; 80048; 80053; 80069; 82607; 82728; 82746; 82805; 82948; 83036; 83540; 83550; 83605; 83735; 83880; 83921; 84100; 84484; 85025; 85610; 85730; 87040; 93005; 93970; 94762; 96374; 96375; 96376; 97162; 97166; 99291; A9270; C8929; G0378; J1815; J1940; Q9957

== ENCOUNTER 2021-10-07 04:01 | Inpatient (IN) | payer OTHER, SELFPAY ==
[2021-10-07] VITALS (15 sets, daily range): BP systolic 141–177; BP diastolic 40–86; PULSE 67–90; RESP 16–20; TEMP 36.4–37; O2SAT 96–98; BMI 49.8
--- NOTE | ~2021-10-07 | XR_ITS ---
EXAMINATION: XR chest 1V portable DATE: 10/07/2021 04:56 INDICATION: Cough TECHNIQUE: frontal view of the chest was obtained. COMPARISON: Chest radiograph dated 11/03/2020 FINDINGS: The lungs remain clear with no focal airspace opacities, pulmonary edema, pleural effusion or pneumot horax. Heart size is normal with small left paracardial fat pad extending to the costophrenic angle. IMPRESSION: 1. No acute cardiopulmonary disease. Reviewed, dictated and finalized at location A.
--- NOTE | 2021-10-07 04:09 | ECG_ITS ---
Measurements Intervals [place] Rate: 85 P: 68 CO: 177 QRS: -50 QRSD: 93 T: 39 QT: 385 QTc: 460 Interpretive Statements SINUS RHYTHM PATTERN CONSISTENT WITH PULMONARY DISEASE LEFT ANTERIOR FASCICULAR BLOCK [QRS AXIS <= -45, QR IN I, RS IN II] COMPARED TO ECG 11/02/2020 01:24:43 LEFT ANTERIOR FASCICULAR BLOCK NOW PRESENT Electronically Signed On 10-07-2021 11:17:40 CDT by Megan Reid MD
[2021-10-07 04:40] LABS: Basophils Percent Auto 0.1 % (0.2-1.2); Immature Granulocyte Absolute 0.05 K/mm3 (0.00-0.031); Immature Granulocyte Percent A 0.6 % (0-0.5); Lymphocytes Absolute Auto 1.79 K/mm3 (0.9-3.2); Lymphocytes Percent Auto 19.9 % (18.3-44.2); Mean Corpuscular HGB Conc 34.4 g/dl (32-36); Mean Corpuscular Hemoglobin 31.1 pg (26-34); Mean Corpuscular Volume 90.4 fl (80-100); Mean Platelet Volume 10.2 fl (7.4-10.4); Monocytes Absolute Auto 0.7 K/mm3 (0.1-0.6); Monocytes Percent Auto 7.9 % (2.6-8.5); Neutrophils Absolute Auto 6.4 K/mm3 (1.3-6.7); Neutrophils Percent Auto 71.5 % (45.5-73.1); Platelet Count Result 259 k/mm3 (150-375); Red Blood Count 3.54 M/mm3 (4.2-5.4); Red Cell Distribution Width 11.6 % (11.5-14.5)
[2021-10-07 05:03] LABS: NT Pro B Type Natriuretic Pept 690 pg/mL (5-100); Troponin I 0.022 ng/mL (0.000-0.034)
[2021-10-07 05:10] LABS: Alanine Aminotransferase 15 U/L (6-35); Albumin Level 3.7 g/dL (3.5-5.1); Alkaline Phosphatase 132 U/L (38-126); Anion Gap 6 mmol/L (8-16); Aspartate Amino Transferase 19 U/L (14-36); Bilirubin,Total 0.4 mg/dL (0.2-1.3); Blood Urea Nitrogen 10 mg/dL (7-17); Calcium 8.2 mg/dL (8.4-10.2); Carbon Dioxide 25 mmol/L (22-30); Chloride 84 mmol/L (98-107); Estimated CRCL calculation 87 ml/min; Estimated Glomerular Filt Rate > 60; Glucose 356 mg/dL (65-110); Potassium 4.6 mmol/L (3.4-5.0); Sodium 115 mmol/L (137-145)
--- NOTE | 2021-10-07 05:15 | ED.SOB ---
HPI - SOB/Dyspnea General Chief Complaint: Shortness of Breath/Dyspnea Stated Complaint: sick 2 weeks, increased wob, coughing fits Time Seen by Provider: 10/07/21 04:10 Source: patient and EMS Mode of arrival: EMS Limitations: no limitations History of Present Illness HPI Narrative: 70-year-old with multiple medical problems [facility] with complaints of shortness of breath for past few hours. Patient states that she was diagnosed with pneumonia and was started on antibiotic.. Patient states that she woke up from sleep and was coughing and was unable to catch her breath. Patient was later sent to the ER. She denies any fever or chills. No history of nausea, vomiting or diarrhea. Related Data Home Medications Medication Instructions Recorded Confirmed escitalopram oxalate 20 mg tablet 20 mg PO DAILY 06/01/19 09/07/21 meclizine 12.5 mg tablet 12.5 mg PO TID 06/01/19 09/07/21 nystatin 100,000 unit/gram topical 1 applic topical BID PRN Rash 06/01/19 09/07/21 cream sennosides 8.6 mg-docusate sodium 2 tab-cap PO DAILY 06/01/19 09/07/21 50 mg tablet (Senna Plus) glucagon (human recombinant) 1 mg 1 mg subcut Q20M PRN Hypoglycemia 07/29/19 09/07/21 solution for injection (Glucagon Emergency Kit) melatonin 5 mg tablet 3 mg PO HS PRN Insomnia 07/29/19 09/07/21 ondansetron HCl 4 mg tablet 4 mg PO Q6H PRN Nausea 07/29/19 09/07/21 (Zofran) acetaminophen 500 mg tablet 500 mg PO Q6H PRN Pain 01/23/20 09/07/21 (Tylenol Extra Strength) polyvinyl alcohol-povidone (PF) 1 drop ophthalmic (eye) Q4-6H PRN 01/23/20 09/07/21 1.4 %-0.6 % eye drops in a Other dropperette (Refresh Classic (PF)) Flonase 1 spray intranasal DAILY 11/02/20 09/07/21 Ana Rosa-Lanta 1 dose BYMOUTH DAILY PRN Nausea 11/02/20 09/07/21 Soren Multivitamin with Mineral 1 tablet BYMOUTH DAILY 11/02/20 09/07/21 Miralax 1 dose PO DAILY PRN Constipation 11/02/20 09/07/21 albuterol sulfate 90 mcg/actuation 1 puff inhalation PRN Shortness Of 11/02/20 09/07/21 aerosol inhaler Breath bisacodyl 10 mg RECTAL DAILY PRN Constipation 11/02/20 09/07/21 calcium carbonate 600 mg-vitamin 1 tablet PO DAILY 11/02/20 09/07/21 D3 10 mcg (400 unit) tablet dimethicone-petrolatum 1 applic topical 11/02/20 09/07/21 ipratropium 0.5 mg-albuterol 3 mg 3 ml inhalation Q4-5H PRN 11/02/20 09/07/21 (2.5 mg base)/3 mL nebulization Shortness of breath soln sodium chloride 1 gram tablet 1,000 mg PO TID 11/02/20 09/07/21 insulin glargine 100 unit/mL 24 unit subcut HS 09/07/21 09/07/21 subcutaneous solution (Lantus U-100 Insulin) ketoconazole 2 % shampoo 1 applic topical 2XW 09/07/21 09/07/21 magnesium BYMOUTH 09/07/21 09/07/21 risperidone 1 mg tablet 1 mg PO HS 09/07/21 09/07/21 Allergies Allergy/AdvReac Type Severity Reaction Status Date / Time chlorpromazine Allergy Unknown Unknown Verified 09/07/21 11:50 lactase Allergy Unknown Unknown Verified 09/07/21 11:50 levofloxacin Allergy Unknown Unknown Verified 09/07/21 11:50 Penicillins Allergy Unknown Unknown Verified 09/07/21 11:50 Sulfa (Sulfonamide Allergy Unknown Unknown Verified 09/07/21 11:50 Antibiotics) sulfanilamide Allergy Unknown Unknown Verified 09/07/21 11:50 thiothixene Allergy Unknown Unknown Verified 09/07/21 11:50 Review of Systems Review of Systems: All systems reviewed & are unremarkable except as noted in HPI and below Constitutional: Constitutional: Reports no additional constitutional complaints Eyes: Eyes: Reports no additional eye complaints ENT: Reports system reviewed and no additional complaints, except as documented Cardiovascular: Cardiovascular: Reports no additional cardiovascular complaints Respiratory: Respiratory: Reports as per HPI Gastrointestinal: Gastrointestinal: Reports no additional gastrointestinal complaints Musculoskeletal: Musculoskeletal: Reports no additional musculoskeletal complaints PMFSH Past Medical History Medical History (Reviewed 10/07/21 @ 05:19 by
[2021-10-07 05:56] LABS: Appearance Urine Clear (Clear); Bilirubin Urine 1+ (Negative); Color Urine Yellow (Yellow); Glucose Urine UA 3+ mg/dL (Negative); Ketones Urine 1+ mg/dL (Negative); Leukocyte Esterase Ur Negative LEU/UL (Negative); Nitrate Urine Negative (Negative); Protein Urine 2+ mg/dL (Negative); Specific Grav Ur 1.015 (1.001-1.035); Urobilinogen Urine 0.2 mg/dL (<2.0)
[2021-10-07 06:00] LABS: Bacteria Urine Trace /hpf; RBC Urine 0-2 /hpf (0-2); Squamous Epithelial Cell Urine Rare /hpf (Few); WBC Urine 0-3 /hpf
[2021-10-07 06:01] LABS: Add Urine Microscopic? YES; Blood Urine Trace-Intact (Negative)
[2021-10-07 06:03] LABS: Sodium Urine Random 55 meq/L
[2021-10-07] MEDS: SODIUM CHLORIDE 0.9% IV 1,000 ML 75 ML IV CONT (06:23)
--- NOTE | 2021-10-07 06:34 | ADMGEN ---
This patient, Miladys Felipe, was admitted to [facility] Surg Room 306-02. Patient/family oriented to hospital policies and general routines including ID bracelet, bed and alarms, visiting hours, pain management, procedures, bathroom and other care routines, personal items, smoking policy, room service/diet, and visiting hours. Information on how to activate the Rapid Response Team has been discussed. Patient/Family are encouraged to report perceived risks to care and to ask questions if they do not understand what they are told or what they should do.
[2021-10-07 06:37] LABS: Glucose Point of Care 393 mg/dl (65-105)
[2021-10-07 08:16] LABS: Glucose Point of Care 450 mg/dl (65-105)
[2021-10-07] MEDS: INSULIN ASPART (*BKC) 100 UNITS/ML 10 UNITS SUB-Q (08:55)
[2021-10-07] MEDS: INSULIN GLARGINE (*BKC) 100 UNITS/ML 15 UNITS SUB-Q (08:56)
[2021-10-07] MEDS: ASPIRIN 81 MG ENTERIC TABLET PO (10:05)
[2021-10-07] MEDS: MECLIZINE HCL 12.5 MG TABLET PO ×3 (10:06→20:45)
[2021-10-07] MEDS: MAGNESIUM OXIDE 400 MG TABLET PO (10:06)
[2021-10-07] MEDS: FUROSEMIDE 40 MG TABLET PO (10:06)
[2021-10-07] MEDS: TOLNAFTATE 1% POWDER 45 GM BTL 1 APPLIC TOPICAL ×2 (10:06→21:07)
[2021-10-07] MEDS: SENNA/DOCUSATE SODIUM TABLET 1 TAB PO ×2 (10:07→15:22)
[2021-10-07] MEDS: FLUTICASONE PROPIONATE 0.05% NA SPR 16 GM BTL (*BKC) 1 SPRAY NASAL (10:08)
[2021-10-07] MEDS: guaiFENesin 12 HR 600 MG TABCR PO (10:08)
[2021-10-07] MEDS: lisinopriL 10 MG TABLET PO (10:10)
[2021-10-07] MEDS: METOPROLOL TARTRATE 25 MG TABLET PO ×2 (11:36→21:07)
[2021-10-07] MEDS: SODIUM CHLORIDE 1 GM TABLET PO ×3 (11:36→20:45)
[2021-10-07] MEDS: LIOTHYRONINE SODIUM 5 MCG TABLET PO ×2 (11:37→17:11)
[2021-10-07] MEDS: DOXYCYCLINE HYCLATE 100 MG TABLET PO ×2 (11:39→20:45)
[2021-10-07 11:44] LABS: Glucose Point of Care 331 mg/dl (65-105)
[2021-10-07] MEDS: INSULIN ASPART (*BKC) 100 UNITS/ML SUB-Q ×2 (12:05→17:11)
--- NOTE | 2021-10-07 12:20 | PM.IMHP ---
H&P: HPI History of Present Illness Date/Time: 10/07/21 12:20 Chief Complaint: 70-year-old with multiple medical problems sent from a [place] [facility] with complaints of shortness of breath for past few hours.? Patient states that she was diagnosed with pneumonia and was started on antibiotic..? Patient states that she woke up from sleep and was coughing and was unable to catch her breath.? Patient was later sent to the ER.? She denies any fever or chills.? No history of nausea, vomiting or diarrhea. Review of Systems Review of Systems: 10 point ROS negative except as stated in HPI / Subjective PMFSH Past Medical History Medical History (Updated 10/07/21 @ 12:24 by Miko Martines MD) Anxiety Bipolar 1 disorder Cataracts, bilateral Charcot gait Colitis Depression DM I (diabetes mellitus, type I) GERD (gastroesophageal reflux disease) Glaucoma H/O: HTN (hypertension) Hypercholesteremia Hypoglycemia Hypothyroid IBS (irritable bowel syndrome) Morbid obesity Peripheral neuropathy Pulmonary hypertension Schizophrenia Thyroid cancer Surgical History Surgical History H/O foot surgery History of thyroidectomy Hx laparoscopic cholecystectomy Hx of bilateral cataract extraction Previous section x2. Family History Family History (Updated 10/07/21 @ 06:50 by Ayse Gomez RN) Mother Family history of thyroid disease Sibling Family history of thyroid disease Father Cancer Schizophrenia Other Family history of arthritis Family history of cataracts Family history of glaucoma Family history of hearing loss Family history of lung disease Social History Social History Social History: Lifelong nonsmoker but exposed to second hand smoke. No alcohol or drug use. She resides at [facility]. She is a full code. She nominates her mom to be the individual to make medical decisions for her if she is unable but plans to change this over to her sister. Smoking status: Never smoker Alcohol intake: never Substance use: never Substance use type: does not use Gender identity (if verbalized by the patient): Female Spiritual care concerns: No Agree to blood products: Yes Meds Home Medications and Allergies Home Medications Medication Instructions Recorded Confirmed Type escitalopram oxalate 20 mg tablet 20 mg PO DAILY 06/01/19 10/07/21 History meclizine 12.5 mg tablet 12.5 mg PO TID 06/01/19 10/07/21 History nystatin 100,000 unit/gram topical 1 applic topical BID PRN Rash 06/01/19 10/07/21 History cream sennosides 8.6 mg-docusate sodium 2 tab-cap PO DAILY 06/01/19 10/07/21 History 50 mg tablet (Senna Plus) metoprolol tartrate 25 mg tablet 25 mg PO Q12HR #60 tabs 06/04/19 10/07/21 Rx glucagon (human recombinant) 1 mg 1 mg subcut Q20M PRN Hypoglycemia 07/29/19 10/07/21 History solution for injection (Glucagon Emergency Kit) ondansetron HCl 4 mg tablet 4 mg PO Q8H PRN Nausea 07/29/19 10/07/21 History (Zofran) acetaminophen 500 mg tablet 500 mg PO Q6H PRN Pain 01/23/20 10/07/21 History (Tylenol Extra Strength) aspirin 81 mg tablet,delayed 81 mg PO DAILY #1 tablet 01/23/20 10/07/21 Rx release polyvinyl alcohol-povidone (PF) 1 drop ophthalmic (eye) Q4H PRN 01/23/20 10/07/21 History 1.4 %-0.6 % eye drops in a Dry Eye(S) dropperette (Refresh Classic (PF)) Flonase 1 spray intranasal DAILY PRN 11/02/20 10/07/21 History allergies Ana Rosa-Lanta 1 dose BYMOUTH DAILY PRN gerd 11/02/20 10/07/21 History Miralax 1 dose PO DAILY PRN Constipation 11/02/20 10/07/21 History albuterol sulfate 90 mcg/actuation 2 puff inhalation Q4H PRN 11/02/20 10/07/21 History aerosol inhaler Shortness Of Breath bisacodyl 10 mg RECTAL DAILY PRN Constipation 11/02/20 10/07/21 History calcium carbonate 600 mg-vitamin 1 tablet PO BID 11/02/20 10/07/21 History D3
[2021-10-07] MEDS: BENZONATATE 100 MG CAPSULE 200 MG PO ×2 (13:29→22:37)
[2021-10-07 15:14] LABS: Anion Gap 7 mmol/L (8-16); Blood Urea Nitrogen 12 mg/dL (7-17); Calcium 8.7 mg/dL (8.4-10.2); Carbon Dioxide 25 mmol/L (22-30); Chloride 93 mmol/L (98-107); Estimated CRCL calculation 93 ml/min; Estimated Glomerular Filt Rate > 60; Glucose 267 mg/dL (65-110); Sodium 125 mmol/L (137-145)
[2021-10-07] MEDS: INSULIN GLARGINE (*BKC) 100 UNITS/ML 24 UNITS SUB-Q (15:22)
[2021-10-07] MEDS: ACETAMINOPHEN 325 MG TABLET 650 MG PO (15:22)
[2021-10-07 16:40] LABS: Glucose Point of Care 289 mg/dl (65-105)
[2021-10-07 16:50] LABS: Anion Gap 3 mmol/L (8-16); Blood Urea Nitrogen 13 mg/dL (7-17); Calcium 8.8 mg/dL (8.4-10.2); Carbon Dioxide 28 mmol/L (22-30); Chloride 94 mmol/L (98-107); Estimated CRCL calculation 82 ml/min; Estimated Glomerular Filt Rate > 60; Glucose 277 mg/dL (65-110); Potassium 5.1 mmol/L (3.4-5.0); Sodium 125 mmol/L (137-145)
[2021-10-07] MEDS: FERROUS SULFATE 324 MG TABLET PO (17:10)
[2021-10-07] MEDS: risperiDONE 1 MG TABLET PO (20:44)
[2021-10-07] MEDS: MELATONIN 3 MG TABLET PO (20:44)
[2021-10-07] MEDS: LORATADINE 10 MG TABLET PO (20:45)
[2021-10-07] MEDS: risperiDONE 0.5 MG TABLET PO (20:45)
[2021-10-07] MEDS: BISACODYL 10 MG SUPPOSITORY RECTAL (21:30)
[2021-10-07 22:22] LABS: Glucose Point of Care 237 mg/dl (65-105)
[2021-10-08] VITALS (8 sets, daily range): BP systolic 127–130; BP diastolic 41–63; PULSE 63–95; RESP 18–20; TEMP 36.3–36.7; O2SAT 95–100
[2021-10-08] MEDS: BENZONATATE 100 MG CAPSULE 200 MG PO ×3 (04:12→16:13)
[2021-10-08 04:24] LABS: SARS-CoV-2 RNA PCR Negative
[2021-10-08 06:16] LABS: Anion Gap 5 mmol/L (8-16); Blood Urea Nitrogen 15 mg/dL (7-17); Calcium 9.1 mg/dL (8.4-10.2); Carbon Dioxide 25 mmol/L (22-30); Chloride 95 mmol/L (98-107); Estimated CRCL calculation 82 ml/min; Estimated Glomerular Filt Rate > 60; Glucose 189 mg/dL (65-110); Potassium 4.3 mmol/L (3.4-5.0); Sodium 125 mmol/L (137-145)
[2021-10-08] MEDS: LEVOTHYROXINE SODIUM 112 MCG TABLET PO (07:08)
[2021-10-08 07:56] LABS: Glucose Point of Care 208 mg/dl (65-105)
[2021-10-08] MEDS: FUROSEMIDE 40 MG TABLET PO (09:40)
[2021-10-08] MEDS: ASPIRIN 81 MG ENTERIC TABLET PO (09:40)
[2021-10-08] MEDS: polyethylene glycoL 3350 17 GM POWD.PACK PO (09:40)
[2021-10-08] MEDS: METOPROLOL TARTRATE 25 MG TABLET PO (09:41)
[2021-10-08] MEDS: ENOXAPARIN 40 MG/0.4 ML SYRINGE SUB-Q (09:41)
[2021-10-08] MEDS: MAGNESIUM OXIDE 400 MG TABLET PO (09:42)
[2021-10-08] MEDS: ESCITALOPRAM OXALATE 10 MG TABLET 20 MG PO (09:42)
[2021-10-08] MEDS: FERROUS SULFATE 324 MG TABLET PO ×2 (09:43→16:14)
[2021-10-08] MEDS: MECLIZINE HCL 12.5 MG TABLET PO ×3 (09:43→16:15)
[2021-10-08] MEDS: lisinopriL 10 MG TABLET PO (09:43)
[2021-10-08] MEDS: SODIUM CHLORIDE 1 GM TABLET PO ×3 (09:43→16:15)
[2021-10-08] MEDS: SENNA/DOCUSATE SODIUM TABLET 1 TAB PO ×2 (09:43→16:13)
[2021-10-08] MEDS: guaiFENesin 12 HR 600 MG TABCR PO (09:43)
[2021-10-08] MEDS: INSULIN ASPART (*BKC) 100 UNITS/ML SUB-Q (09:43)
[2021-10-08] MEDS: INSULIN GLARGINE (*BKC) 100 UNITS/ML 24 UNITS SUB-Q (09:45)
[2021-10-08] MEDS: TOLNAFTATE 1% POWDER 45 GM BTL 1 APPLIC TOPICAL (10:00)
--- NOTE | 2021-10-08 10:48 | PM.DS ---
DS: Admitting Diagnosis Discharge Date October 08, 2021 Admitting Diagnosis Hyponatremia DS: Discharge Diagnosis Discharge Diagnosis (1) Acute hyponatremia: Code(s): E87.1 - Hypo-osmolality and hyponatremia Status: Acute Assessment and Plan: Question etiology. Resolved with IV fluids. Likely secondary decreased p.o. intake. Will continue sodium chloride tablets on discharge. She never had any neurological symptoms. Monitor as an outpatient. (2) CHF (congestive heart failure): Code(s): I50.9 - Heart failure, unspecified Status: Acute Assessment and Plan: Resolved, compensated. (3) Type 1 diabetes mellitus: Code(s): E10.9 - Type 1 diabetes mellitus without complications Status: Acute Assessment and Plan: Monitor blood sugar continue insulin (4) H/O: HTN (hypertension): Code(s): Z86.79 - Personal history of other diseases of the circulatory system Status: Acute Assessment and Plan: Adjust medications and monitor blood pressure. (5) Anxiety: Code(s): F41.9 - Anxiety disorder, unspecified Status: Acute Assessment and Plan: Continue home medications (6) Morbid obesity: Code(s): E66.01 - Morbid (severe) obesity due to excess calories Status: Acute Assessment and Plan: Monitor DS: Summary Hospital Course Hospital Course: Patient was admitted for hyponatremia. Questionable etiology, multifactorial. Patient monitor renal dehydrated she was given some IV fluids her sodium subsequently resolved quickly. Will continue sodium chloride tablets on discharge. Time Spent with Patient Time attestation: Total time spent providing and/or coordinating discharge services: Exam Narrative: General: alert and oriented Psych: appropriate mood nad affect Eyes: PERRLA Neck: Trachea midline, no new lesions Skin: no changes Lungs: CTA Cardiac: Normal S1,S2, no MGR ABD: soft, nd, nt, nbs Ext: no new lesions, no cce Vasc: Pulses intact DS: Data Data Completed and Pending Labs on day of discharge: Labs from last 24 hours 10/08/21 10/08/21 10/08/21 10:32 07:53 05:46 Sodium 125 L Potassium 4.3 Chloride 95 L Carbon Dioxide 25 Anion Gap 5 L BUN 15 Creatinine 0.80 Estim Creat Clear Calc 82 Estimated GFR > 60 Glucose 189 H POC Capillary Glucose 208 H Serum Osmolality Calcium 9.1 SARS-CoV-2 RNA (RT-PCR) SARS-CoV-2 IgG/IgM Ag?Rapid Pending 10/08/21 10/07/21 10/07/21 01:45 20:43 16:26 Sodium Potassium Chloride Carbon Dioxide Anion Gap BUN Creatinine Estim Creat Clear Calc Estimated GFR Glucose POC Capillary Glucose 237 H 289 H Serum Osmolality Calcium SARS-CoV-2 RNA (RT-PCR) Negative SARS-CoV-2 IgG/IgM Ag?Rapid 10/07/21 10/07/21 10/07/21 16:20 14:54 14:54 Sodium 125 L 125 L Potassium 5.1 H 5.0 Chloride 94 L 93 L Carbon Dioxide 28 25 Anion Gap 3 L 7 L BUN 13 12 Creatinine 0.80 0.70 Estim Creat Clear Calc 82 93 Estimated GFR > 60 > 60 Glucose 277 H 267 H POC Capillary Glucose Serum Osmolality Pending Calcium 8.8 8.7 SARS-CoV-2 RNA (RT-PCR) SARS-CoV-2 IgG/IgM Ag?Rapid 10/07/21 11:37 Sodium Potassium Chloride Carbon Dioxide Anion Gap BUN Creatinine Estim Creat Clear Calc Estimated GFR Glucose POC Capillary Glucose 331 H Serum Osmolality Calcium SARS-CoV-2 RNA (RT-PCR) SARS-CoV-2 IgG/IgM Ag?Rapid Discharge Plan Discharge Attending physician on discharge: Miko Martines Discharging Clinician: Miko Martines Patient Disposition: Home, Self-Care Activity: no preference Diet: as tolerated Patient Instructions: Antibiotic Form Stand Alone Forms: General Discharge Information Follow-up/Referrals: Timi,Baltazar Deleon MD [Primary Care Provider] - Discharge Medications: Continued ketocona
[2021-10-08 10:53] LABS: EDCOVIDSCREEN Negative (Negative)
[2021-10-08 12:09] LABS: Glucose Point of Care 440 mg/dl (65-105)
[2021-10-08] MEDS: INSULIN ASPART (*BKC) 100 UNITS/ML 10 UNITS SUB-Q (12:48)
[2021-10-08] MEDS: DOXYCYCLINE HYCLATE 100 MG TABLET PO (12:49)
[2021-10-08] MEDS: LIOTHYRONINE SODIUM 5 MCG TABLET PO ×2 (12:49→16:15)
[2021-10-08 13:37] LABS: Glucose Point of Care 358 mg/dl (65-105)
[2021-10-08 17:00] LABS: Glucose Point of Care 153 mg/dl (65-105)
[2021-10-11 14:57] LABS: Osmolality, Urine 272 mOsm/kg (50-1200)
== END 2021-10-08 19:25 | disposition home or self-care (01) | DRG 641 ==
LOC: ANHED 05:26 → ANH3MEDSUR 05:57
PROVIDERS: Admitting Provider Internal Medicine; Emergency Provider Family Medicine; PCP General Practice; Visit Provider Chiropractor
DX: E87.1 Hypo-osmolality and hyponatremia (principal); Z20.822 Contact with and (suspected) exposure to COVID-19; I50.9 Heart failure, unspecified; Z86.79 Personal history of other diseases of the circulatory system; F41.9 Anxiety disorder, unspecified; E66.01 Morbid (severe) obesity due to excess calories; F31.9 Bipolar disorder, unspecified; E03.9 Hypothyroidism, unspecified; I27.20 Pulmonary hypertension, unspecified; E10.42 Type 1 diabetes mellitus with diabetic polyneuropathy; K21.9 Gastro-esophageal reflux disease without esophagitis; E78.00 Pure hypercholesterolemia, unspecified; Z79.899 Other long term (current) drug therapy; Z80.9 Family history of malignant neoplasm, unspecified; Z79.82 Long term (current) use of aspirin
CPT/HCPCS: 36415; 71045; 80048; 80053; 81001; 82948; 83880; 83930; 83935; 84300; 84484; 85025; 87426; 93005; 99285; A9270; C9803; J1650; J1815; J7030; U0003; U0005

== ENCOUNTER 2022-03-10 13:17 | Outpatient (CLI) | payer MEDICARE, MEDICAID, SELFPAY ==
--- NOTE | ~2022-03-10 | DEXA_ITS ---
Bone Density Report Name: CONSUELO SNIDER Age: 71 Sex: Female Ethnicity: White Date of : 1950 Indication: postmenopausal; screening for osteoporosis; Referring Provider: DOMENICA COY Study: Bone densitometry was performed. Exam Date: March 10, 2022 Accession number: [id number] Bone Density: Region BMD T-score Z-score Classification AP Spine(L1-L4) 1.185 1.3 3.4 Normal Femoral Neck (Left) 0.704 -1.3 0.5 Osteopenia Total Hip (Left) 0.921 -0.2 1.3 Normal Femoral Neck (Right) 0.789 -0.5 1.3 Normal Total Hip (Right) 0.913 -0.2 1.3 Normal Total Hip Mean 0.917 -0.2 1.3 Normal World Health Organization criteria for BMD impression classify patients as: Normal (T-score at or above -1.0), Osteopenia (T-score between -1.0 and -2.5), or Osteoporosis (T-score at or below -2.5). 10-year Fracture Risk(1): Major Osteoporotic Fracture 8.0% Hip Fracture 0.9% Reported Risk Factors: [place] (), Neck BMD=0.704, BMI=45.4 (1) FRAX(R) Version 3.08. Fracture probability calculated for an untreated patient. Fracture probability may be lower if the patient has received treatment. Previous Exams: Region Exam Age BMD T-score BMD Change BMD Change Date g/cm2 vs Baseline vs Previous Total Hip(Left) 03/10/2022 71 0.921 -0.2 -0.076 (-7.7%) -0.076 (-7.7%) 02/21/2020 69 0.997 0.5 Total Hip(Right) 03/10/2022 71 0.913 -0.2 -0.055 (-5.6%) -0.055 (-5.6%) 02/21/2020 69 0.968 0.2 *Denotes significance at 95% confidence level, LSC for Total Hip = 0.027 g/cm2 # Denotes dissimilar scan types or analysis methods Clinical Information Provided by Patient: Has used the following medications: Calcium Patient maximum height was 65.5 Menopause Age: 46 No regular weight bearing exercise Drinks caffeinated beverages Onset of menses at age 13 Number of children 2 Impression: The patient has low bone mass, based on the Left Femoral Neck T-score. The patient has an estimated ten-year risk of hip fracture of 0.9% and an estimated ten-year risk of major fracture of 8%, based on the WHO FRAX algorithm. No significant bone loss was observed. Discussion: BONE DENSITY IS LOW AT ONE OR MORE SKELETAL SITES. This patient's lowest T-score is low at one or more skeletal sites. It meets the World Health Organization's (WHO) criteria for ?low bone mass? (T-score between -1.0 and -2.5). The patient's 10-year risk of fracture as calculated by FRAX is less than the threshold where
== END 2022-03-10 13:18 | disposition home or self-care (01) ==
PROVIDERS: PCP General Practice; Visit Provider Internal Medicine Endocrinology, Diabetes & Metabolism
DX: M81.0 Age-related osteoporosis without current pathological fracture (principal); M85.852 Other specified disorders of bone density and structure, left thigh
CPT/HCPCS: 77080

== ENCOUNTER 2022-09-05 15:14 | Inpatient (IN) | payer MEDICARE, MEDICAID, SELFPAY ==
--- NOTE | ~2022-09-05 | MR_ITS ---
EXAMINATION: MR foot RT wo/w con DATE: 09/06/2022 16:43 INDICATION: Osteoarthritis at the right foot TECHNIQUE: Magnetic resonance imaging (MRI) of the right fore/mid foot was performed without intraven ous contrast. Sequences included axial, sagittal and coronal T1-weighted FSE, axial and coronal T2-we ighted FS FSE, sagittal fluid sensitive FSE STIR, axial T1-weighted FS FSE and postcontrast axial, sa gittal and coronal T1-weighted FS FSE. COMPARISON: Right foot radiographs dated 09/05/2022 FINDINGS: Old healed fracture deformity of the right fifth metatarsal diaphysis which is healed with apex. Ther e is a rocker-bottom deformity the midfoot with cephalad subluxation of the bases of the second-fifth metatarsals relative to the tarsal bones. There is fusion of base of the first metatarsal and the me dial and mid cuneiforms. There is severe polyarticular osteoarthritis at the unfused tarsometatarsal joints with associated destructive changes most likely related to neuropathic arthropathy. Hallux suni sylvain. There are multiple foci of susceptibility artifact at the first interphalangeal joint with corre sponding subtle foci of lucency in the soft tissues on the prior radiographs consistent with soft tis lindsay and potentially intra-articular gas. There is an erosion of the cortex and loss of T1 marrow fat signal at the lateral side of the base of the distal phalanx consistent with osteomyelitis. There is mild increased marrow fluid signal at the distal phalanx. A few of the foci of susceptibility artifac t and decreased attenuation the largest appear to be located deep to the articular cortex at the prox imal phalanx, likely within the bone and suspicious for additional ostomy myelitis. Normal marrow sig nal is approximately neck of the proximal phalanx. No other lesions present in the visualized right f oot suspicious for osteomyelitis. No abscess. IMPRESSION: 1. Septic arthritis at the first interphalangeal joint with osteomyelitis at the distal phalanx and a t the head of the proximal phalanx. 2. 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 Reviewed, dictated and finalized at location A. IMPRESSION: 1. Septic arthritis at the first interphalangeal joint with osteomyelitis at th e distal phalanx and at the head of the proximal phalanx. 2. 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
--- NOTE | ~2022-09-05 | XR_ITS ---
EXAMINATION: XR foot RT min 3V DATE: 09/05/2022 16:17 INDICATION: Right greater than infection. TECHNIQUE: 3 views of right foot were obtained. COMPARISON: None. FINDINGS: There is severe hallux valgus. There is an old healed fracture of diaphysis of fifth metata rsal. 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 There is moderate osteoarthritis of first metatarsophalangeal joint and mild osteoarthri tis of some the interphalangeal joints. There is moderate osteoarthritis of first interphalangeal kierra nt. There is soft tissue gas in the great toe. IMPRESSION: 1. No specific evidence of osteomyelitis. 2. Polyarticular osteoarthritis, severe in the midfoot with a rocker-bottom deformity, likely neuropa thic osteoarthropathy. 3. Severe hallux valgus. Reviewed, dictated and finalized at location A. IMPRESSION: 1. No specific evidence of osteomyelitis. 2. 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 3. Severe hallux valgus.
--- NOTE | ~2022-09-05 | US_ITS ---
EXAMINATION: US arterial ankle brachial ind DATE: 09/06/2022 11:22 INDICATION: Peripheral arterial disease. TECHNIQUE: Segmental pressures and plethysmographic and Doppler waveforms of the brachial and lower e xtremity arteries were obtained. COMPARISON: None. FINDINGS: Right and left brachial artery pressures of 173 mm Hg and 175 mm Hg, respectively, are concordant (no rmal difference <= 30 mmHg). The right ankle-brachial index (ELIZABETH) could not be measured because the patient could not tolerate pre ssure from the cuffs (normal >= 0.9-1.0). The right great toe-brachial index (TBI) is 0 (normal >= 0. 65). Arterial Doppler waveforms are at least biphasic at the ankle. The left ELIZABETH could not be measured because the patient could not tolerate pressure from the cuffs. Th e left TBI is 0.26. Arterial Doppler waveforms are biphasic at the ankle. IMPRESSION: 1. No detectable arterial flow in right great toe and decreased left TBI, consistent with arterial oc clusive disease. 2. ABIs were not measured because the patient could not tolerate pressure from the cuffs. Reviewed, dictated and finalized at location A. IMPRESSION: 1. No detectable arterial flow in right great toe and decreased left TBI, consi stent with arterial occlusive disease. 2. ABIs were not measured because the patient could not tolerate pressure from the cuffs.
[2022-09-05 15:18] VITALS: BP 158/61; PULSE 75; RESP 20; TEMP 36.6; O2SAT 99
--- NOTE | 2022-09-05 16:40 | ED.WOUNDLAC ---
HPI - Wound/Laceration General Chief Complaint: Wound/Laceration <Gwen Corrales PA-C - Last Filed: 09/05/22 18:44> Stated Complaint: wound <Gwen Corrales PA-C - Last Filed: 09/05/22 18:44> Time Seen by Provider: 09/05/22 15:35 <Gwen Corrales PA-C - Last Filed: 09/05/22 18:44> History of Present Illness HPI narrative: Patient is a 71-year-old female with a history of type 1 diabetes/charcot foot here for evaluation of right foot pain and swelling x4 days. Patient states that she had an ingrown toenail treated surgically 5 days ago. Since then her toe has slowly turned purple and there has been a large amount of surrounding redness to the toe and hindfoot. No fevers, chills, nausea, vomiting. <Gwen Corrales PA-C - Last Filed: 09/05/22 18:44> Related Data Home Medications: Home Medications Medication Instructions Recorded Confirmed escitalopram oxalate 20 mg tablet 20 mg PO DAILY 06/01/19 08/29/22 meclizine 12.5 mg tablet 12.5 mg PO TID 06/01/19 08/29/22 nystatin 100,000 unit/gram topical 1 applic topical BID PRN Rash 06/01/19 08/29/22 cream glucagon (human recombinant) 1 mg 1 mg subcut Q20M PRN Hypoglycemia 07/29/19 08/29/22 solution for injection (Glucagon Emergency Kit) ondansetron HCl 4 mg tablet 4 mg PO Q8H PRN Nausea 07/29/19 08/29/22 (Zofran) acetaminophen 500 mg tablet 500 mg PO Q6H PRN Pain 01/23/20 08/29/22 (Tylenol Extra Strength) polyvinyl alcohol-povidone (PF) 1 drop ophthalmic (eye) Q4H PRN 01/23/20 08/29/22 1.4 %-0.6 % eye drops in a Dry Eye(S) dropperette (Refresh Classic (PF)) Miralax 1 dose PO DAILY PRN Constipation 11/02/20 08/29/22 albuterol sulfate 90 mcg/actuation 2 puff inhalation Q4H PRN 11/02/20 08/29/22 aerosol inhaler Shortness Of Breath bisacodyl 10 mg RECTAL DAILY PRN Constipation 11/02/20 08/29/22 calcium carbonate 600 mg-vitamin 1 tablet PO BID 11/02/20 08/29/22 D3 10 mcg (400 unit) tablet dimethicone-petrolatum 1 applic topical PRN PRN 11/02/20 08/29/22 reddened/excoriated skin ipratropium 0.5 mg-albuterol 3 mg 3 ml inhalation Q6H 11/02/20 08/29/22 (2.5 mg base)/3 mL nebulization soln sodium chloride 1 gram tablet 1,000 mg PO TID 11/02/20 08/29/22 ketoconazole 2 % shampoo 1 applic topical 2XW 09/07/21 08/29/22 risperidone 1 mg tablet 1.5 mg PO HS 09/07/21 08/29/22 benzonatate 200 mg capsule 1 cap PO TID PRN Cough 10/07/21 08/29/22 guaifenesin 200 mg tablet 600 mg PO BID PRN Cough 10/07/21 08/29/22 insulin aspart U-100 100 unit/mL See Rx Instructions .Route .COMPLEX 10/07/21 08/29/22 subcutaneous solution (Novolog U-100 Insulin aspart) levothyroxine 112 mcg tablet 112 mcg PO DAILY 10/07/21 08/29/22 liothyronine 5 mcg tablet (Cytomel) 5 mcg PO BID 10/07/21 08/29/22 loratadine 10 mg tablet (Claritin) 10 mg PO HS 10/07/21 08/29/22 melatonin 3 mg tablet 3 mg PO HS 10/07/21 08/29/22 Lactobacillus acidophilus 10 mg PO BID 08/29/22 08/29/22 (Acidophilus capsule) aluminum-mag hydroxide-simethicone 5 ml PO ONCE 08/29/22 08/29/22 200 mg-200 mg-20 mg/5 mL oral susp (Ana Rosa-Lanta) dextromethorphan-guaifenesin 10 1 tab-cap PO ONCE PRN 08/29/22 08/29/22 mg-200 mg capsule (Robitussin Cough-Chest Congestion DM) fluticasone propionate 50 1 spray intranasal DAILY 08/29/22 08/29/22 mcg/actuation nasal spray,suspension (Flonase Allergy Relief) insulin glargine 100 unit/mL 28 unit subcut .at bedtime 08/29/22 08/29/22 subcutaneous solution (Lantus U-100 Insulin) <Gwen Corrales PA-C - Last Filed: 09/05/22 18:44> Allergies/Adverse Reactions: Allergies Allergy/AdvReac Type Severity Reaction Status Date / Time chlorpromazine Allergy Unknown Unknown Verified 08/29/22 08:38 lactase Allergy Unknown Unknown Verified 08/29/22 08:38 levofloxacin Allergy Unknown Unknown Verified 08/29/22 08:38 Penicillins Allergy Unknown Unknown Verified 08/29/22 08:38 Sulfa (Sulfonamide Allergy Unkno
[2022-09-05 17:16] LABS: Alanine Aminotransferase 19 U/L (6-35); Albumin Level 3.9 g/dL (3.5-5.1); Alkaline Phosphatase 156 U/L (38-126); Anion Gap 6 mmol/L (8-16); Aspartate Amino Transferase 20 U/L (14-36); Bilirubin,Total 0.5 mg/dL (0.2-1.3); Blood Urea Nitrogen 17 mg/dL (7-17); Calcium 8.8 mg/dL (8.4-10.2); Carbon Dioxide 32 mmol/L (22-30); Chloride 92 mmol/L (98-107); Estimated CRCL calculation 85 ml/min; Estimated Glomerular Filt Rate > 60; Glucose 233 mg/dL (65-110); Lactic Acid Reflex 0.8 mmol/L (0.7-2.0); Potassium 4.3 mmol/L (3.4-5.0); Sodium 130 mmol/L (137-145)
[2022-09-05 17:31] LABS: Basophils Percent Auto 0.1 % (0.2-1.2); Hematocrit 35.2 % (37.0-47.0); Hemoglobin 11.5 g/dL (12.0-15.0); Immature Granulocyte Absolute 0.03 K/mm3 (0.00-0.031); Immature Granulocyte Percent A 0.3 % (0-0.5); Lymphocytes Absolute Auto 1.89 K/mm3 (0.9-3.2); Lymphocytes Percent Auto 15.9 % (18.3-44.2); Mean Corpuscular HGB Conc 32.7 g/dl (32-36); Mean Corpuscular Hemoglobin 30.3 pg (26-34); Mean Corpuscular Volume 92.6 fl (80-100); Mean Platelet Volume 10.8 fl (7.4-10.4); Monocytes Absolute Auto 0.8 K/mm3 (0.1-0.6); Monocytes Percent Auto 7.1 % (2.6-8.5); Neutrophils Absolute Auto 9.1 K/mm3 (1.3-6.7); Neutrophils Percent Auto 76.6 % (45.5-73.1); Platelet Count Result 272 k/mm3 (150-375); White Blood Count 11.9 K/mm3 (4.5-10.0)
[2022-09-05] MEDS: SODIUM CHLORIDE 0.9% IV 1,000 ML 999 ML IV CONT (18:03)
[2022-09-05] MEDS: traMADol HCL (*CRX) 50 MG TABLET PO (18:03)
[2022-09-05] MEDS: CEFEPIME 1 GM/NS 50 ML 1 GM/50 ML BAG IVPB (18:35)
[2022-09-05 19:22] VITALS: BP 176/107; PULSE 94; RESP 15; TEMP 36.6; O2SAT 100
--- NOTE | 2022-09-05 19:33 | PC.NURSE ---
When assessing vitals on the patient she kept telling staff that the year was 1992. Patient presents A&0x3.
[2022-09-05 20:27] VITALS: BP 166/76; PULSE 92; RESP 16; TEMP 36.6; O2SAT 100
[2022-09-05 21:01] VITALS: BP 212/72; PULSE 95; RESP 20; TEMP 36.3; O2SAT 100
[2022-09-05 21:02] VITALS: BMI 46.0
--- NOTE | 2022-09-05 21:03 | ADMGEN ---
This patient, Miladys Felipe, was admitted to Medical Room 250-01. Patient/family oriented to hospital policies and general routines including ID bracelet, bed and alarms, visiting hours, pain management, procedures, bathroom and other care routines, personal items, smoking policy, room service/diet, and visiting hours. Information on how to activate the Rapid Response Team has been discussed. Patient/Family are encouraged to report perceived risks to care and to ask questions if they do not understand what they are told or what they should do.
[2022-09-05 22:06] LABS: Glucose Point of Care > 500 mg/dl (65-105)
--- NOTE | 2022-09-05 22:18 | PM.IMHP ---
H&P: HPI History of Present Illness Date/Time: 09/05/22 22:18 Chief Complaint: rt toe red pain and swelling Narrative: ? she is 71 yo f w/ hx of DM type 1 came to ed with cc of pain and swelling of rt ft about 4 days. pt was notice to have darkness change of the right toe 2 more days, denies fever chills, head ache, cp,sob, abd pain n/v. she was brought to ed from custodial for xr revealed no specific evidence of osteomyelitis, wbc 11k. uncontrolled glucose Five hundred, uncontrolled hypertension, 212/72. we may patient for further evaluation and treatment Review of Systems Review of Systems: ROS negative except above PMFSH Past Medical History Medical History Anxiety B12 deficiency Bipolar 1 disorder Body mass index (BMI) greater than 40 (05/26/17) Cataracts, bilateral Cellulitis of right lower extremity Charcot gait Colitis Depression DM I (diabetes mellitus, type I) GERD (gastroesophageal reflux disease) Glaucoma H/O: HTN (hypertension) Hypercholesteremia Hypoglycemia Hypothyroid IBS (irritable bowel syndrome) Morbid obesity Peripheral neuropathy Pulmonary hypertension Schizophrenia Thyroid cancer Type 1 diabetes mellitus without complications Surgical History Surgical History H/O foot surgery History of thyroidectomy Hx laparoscopic cholecystectomy Hx of bilateral cataract extraction Previous section x2. Family History Family History Mother Family history of thyroid disease Sibling Family history of thyroid disease Father Cancer Schizophrenia Other Family history of arthritis Family history of cataracts Family history of glaucoma Family history of hearing loss Family history of lung disease Social History Social History Social History: Lifelong nonsmoker but exposed to second hand smoke. No alcohol or drug use. She resides at [facility]. She is a full code. She nominates her mom to be the individual to make medical decisions for her if she is unable but plans to change this over to her sister. Smoking status: Never smoker Alcohol intake: never Substance use: never Substance use type: does not use Lack of Transportation: No Lack of Food: Never True Current Housing: I Have Housing Concerned About Future Housing: No Difficulty Paying Gas/Electric Bills: No Difficulty Paying for Meds: No Currently Unemployed: No Education: Associate Degree Difficulty w/ Childcare or Family Care: No Gender identity (if verbalized by the patient): Female Spiritual care concerns: No Agree to blood products: Yes Meds Home Medications and Allergies Home Medications Medication Instructions Recorded Confirmed Type escitalopram oxalate 20 mg tablet 20 mg PO DAILY 06/01/19 09/05/22 History meclizine 12.5 mg tablet 12.5 mg PO TID 06/01/19 09/05/22 History nystatin 100,000 unit/gram topical 1 applic topical BID PRN Rash 06/01/19 09/05/22 History cream metoprolol tartrate 25 mg tablet 25 mg PO Q12HR #60 tabs 06/04/19 09/05/22 Rx glucagon (human recombinant) 1 mg 1 mg subcut Q20M PRN Hypoglycemia 07/29/19 09/05/22 History solution for injection (Glucagon Emergency Kit) ondansetron HCl 4 mg tablet 4 mg PO Q8H PRN Nausea 07/29/19 09/05/22 History (Zofran) acetaminophen 500 mg tablet 500 mg PO Q6H PRN Pain (Scale 01/23/20 09/05/22 History (Tylenol Extra Strength) Score 1-3) aspirin 81 mg tablet,delayed 81 mg PO DAILY #1 tablet 01/23/20 09/05/22 Rx release polyvinyl alcohol-povidone (PF) 1 drop ophthalmic (eye) Q4H PRN 01/23/20 09/05/22 History 1.4 %-0.6 % eye drops in a Dry Eye(S) dropperette (Refresh Classic (PF)) Miralax 1 dose PO DAILY PRN Constipation
[2022-09-05] MEDS: INSULIN ASPART (*BKC) 100 UNITS/ML 20 UNITS SUB-Q (22:29)
[2022-09-06] MEDS: risperiDONE 0.5 MG TABLET 1.5 MG PO ×2 (00:14→22:32)
[2022-09-06] MEDS: traMADol HCL (*CRX) 50 MG TABLET PO ×3 (00:14→22:31)
[2022-09-06] MEDS: MELATONIN 3 MG TABLET PO ×2 (00:15→22:31)
[2022-09-06] MEDS: LORATADINE 10 MG TABLET PO ×2 (00:15→22:31)
[2022-09-06] MEDS: METOPROLOL TARTRATE 25 MG TABLET PO ×3 (00:15→22:31)
[2022-09-06] MEDS: CEFEPIME 2 GM/NS 50 ML 2 GM/50 ML BAG IVPB ×4 (00:15→22:32)
[2022-09-06 00:31] LABS: Glucose Point of Care 362 mg/dl (65-105)
[2022-09-06 04:55] VITALS: BP 148/62; PULSE 66; RESP 20; TEMP 35.8; O2SAT 100
[2022-09-06 05:13] LABS: Hematocrit 32.8 % (37.0-47.0); Hemoglobin 10.6 g/dL (12.0-15.0); Mean Corpuscular HGB Conc 32.3 g/dl (32-36); Mean Corpuscular Hemoglobin 29.8 pg (26-34); Mean Corpuscular Volume 92.1 fl (80-100); Mean Platelet Volume 10.9 fl (7.4-10.4); Platelet Count Result 276 k/mm3 (150-375); Red Blood Count 3.56 M/mm3 (4.2-5.4); Red Cell Distribution Width 11.9 % (11.5-14.5); White Blood Count 10.8 K/mm3 (4.5-10.0)
[2022-09-06 05:30] LABS: Anion Gap 4 mmol/L (8-16); Blood Urea Nitrogen 16 mg/dL (7-17); Calcium 8.3 mg/dL (8.4-10.2); Carbon Dioxide 31 mmol/L (22-30); Chloride 94 mmol/L (98-107); Estimated CRCL calculation 86 ml/min; Estimated Glomerular Filt Rate > 60; Glucose 145 mg/dL (65-110); Potassium 4.2 mmol/L (3.4-5.0); Sodium 129 mmol/L (137-145)
[2022-09-06] MEDS: LEVOTHYROXINE SODIUM 112 MCG TABLET PO (06:03)
[2022-09-06 07:41] LABS: Glucose Point of Care 265 mg/dl (65-105)
[2022-09-06 08:04] VITALS: O2SAT 95
[2022-09-06] MEDS: INSULIN ASPART (*BKC) 100 UNITS/ML SUB-Q ×3 (09:19→22:28)
--- NOTE | 2022-09-06 09:36 | PM.CNGS ---
Assessment and Plan Assessment and plan (1) Gangrene of toe of right foot: Code(s): I96 - Gangrene, not elsewhere classified Status: Acute Assessment and Plan: Dry gangrene of the right great toe. No purulent drainage or ascending cellulitis. Plain films without any signs of osteomyelitis. MRI of foot was ordered today, pending. This appears to be more of a vascular issue. Will obtain ABIs to further evaluate arterial flow. No indication for urgent surgical intervention at this time, but she will likely require a toe amputation eventually. Will need vascular surgery referral for further workup and evaluation. Wound care consulted and will initiate local wound care. (2) Peripheral vascular disease: Code(s): I73.9 - Peripheral vascular disease, unspecified Status: Acute Assessment and Plan: Weak bilateral lower extremity pulses. Will order ELIZABETH's to further evaluate. Likely needs outpatient referral to vascular surgery. (3) Type 1 diabetes mellitus with hyperglycemia: Code(s): E10.65 - Type 1 diabetes mellitus with hyperglycemia Status: Acute (4) Charcot gait: Code(s): R26.0 - Ataxic gait Status: Acute (5) Schizoaffective disorder: Code(s): F25.9 - Schizoaffective disorder, unspecified Status: Acute (6) CHF (congestive heart failure): Code(s): I50.9 - Heart failure, unspecified Status: Acute (7) Ventral hernia without obstruction or gangrene: Code(s): K43.9 - Ventral hernia without obstruction or gangrene Status: Acute Assessment and Plan: Large ventral hernia that is asymptomatic, soft, and reducible. No acute issues and could be evaluated as an outpatient as needed. (8) Morbid obesity: Code(s): E66.01 - Morbid (severe) obesity due to excess calories Status: Acute Plan I have discussed the patient's case and plan of care with Dr. Curry. Thank you for allowing us to see the patient in consultation and we will continue to follow along with you. History of Present Illness Consult details Consult date: 09/06/22 Reason for consult: other (Right great toe wound) Requesting physician: Gwen Corrales PA-C Narrative: This is a 71-year-old woman with type 1 diabetes mellitus, charcot foot, and multiple other medical problems, who presented to the ER from a long-term facility for evaluation of right great toe swelling and redness. She is a very poor historian, therefore her history is obtained by review of the electronic medical record. She potentially had surgery for an ingrown toenail on the right great toe within the past week. She is unable to confirm this information or tell me where this was done. It does not appear that she had any surgery here at [facility]. In the past few days, her right great toe has become swollen with some purple and red discoloration. She was then brought in for evaluation. In the ER, her labs were significant for a WBC 11,900 and glucose > 500. Most recent hgb A1C was this month 8.2. 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 She was admitted to the Hospitalist service and started on broad-spectrum IV antibiotics. Our service was consulted for the right great toe wound. She is now seen on the medical floor. She is alert and oriented x 2 and able to tell me she is in a hospital. She does not recall having surgery or how long her symptoms have been ongoing. She states she did not even see her toe until yesterday. Nursing states in report they also got report that she had a surgery about a week ago but not sure where. No fevers since admission. WBC 10,000 today. Wound care consulted and came to the bedside during my evaluation. Review of Systems Review of Systems: ROS unobtainable: Yes unobtainable due to mental status PMFSH Past Medical History Medical History (Updated 09/06/22 @ 10:50 by TOMY Malik)
--- NOTE | 2022-09-06 12:01 | PM.IMPN ---
Progress Note: A&P Assessment and Plan (1) Peripheral vascular disease: Code(s): I73.9 - Peripheral vascular disease, unspecified Status: Acute (2) Gangrene of toe of right foot: Code(s): I96 - Gangrene, not elsewhere classified Status: Acute (3) Hypertensive urgency: Code(s): I16.0 - Hypertensive urgency Status: Acute (4) Uncontrolled type 1 diabetes mellitus: Status: Acute Plan 71 years old F with PMH of type 1DM presented with right foot toe swelling/redness/gangrene. 1)Right Foot Cellulitis/Gangrene: Await MRI foot C/w Vanc+Cefepime Monitor WBC count Appreciate surgery help Pain control 2)Type 1DM: Hyperglycemia, although better as compared to yesterday c/w lantus+SS Add meal time insulin to improve hyperglycemia BG check TID AC and HS 3)HTN: BP better today c/w lisinopril, PRN hydralazine 4)Hyponatremia: Likely chronic c/w salt tab 5)DVT ppx: Hep SQ 6)Code:Full 7)Dispo:pending improvement Time Spent With Patient Time with patient: 25 - 35 minutes Subjective Date/time seen: 09/06/22 12:01 Interval history: hyperglycemia+ Foot cellulitis/gangrene Review of Systems Review of Systems: All systems reviewed & are unremarkable except as noted in HPI and below Exam Const: General: no acute distress HENMT: Mouth: Yes moist mucous membranes Eyes: Sclera: sclerae normal Neck: Neck: supple Resp: Effort & Inspection: normal respiratory effort Cardio: Rate: regular rate Rhythm: regular rhythm GI: GI Palp: Yes Soft to palpation Auscultation: normal bowel sounds Skin: Other: right toe red/black gangrenous in nature no foul smell noted Neuro: Speech: normal speech Psych: Mental Status: mental status grossly normal Objective Data Vital Signs Vital Signs: Vital Signs - 24 hr 09/05/22 15:18 09/05/22 19:22 09/05/22 20:27 Temperature 97.9 F 98 F 98 F Pulse Rate 75 94 92 Respiratory Rate 20 15 16 Blood Pressure 158/61 H 176/107 H 166/76 H Pulse Oximetry 99 100 100 Oxygen Delivery 09/05/22 21:07 09/05/22 21:01 09/06/22 04:55 Temperature 97.4 F L 96.4 F L Pulse Rate 95 66 Respiratory Rate 20 20 Blood Pressure 212/72 H 148/62 H Pulse Oximetry 100 100 Oxygen Delivery Room Air 09/06/22 08:04 Temperature Pulse Rate Respiratory Rate Blood Pressure Pulse Oximetry 95 Oxygen Delivery Room Air Intake/Output Intake/Output: Intake & Output 09/03/22 09/04/22 09/05/22 09/06/22 23:59 23:59 23:59 23:59 Intake Total 1550 540 Balance 1550 540 Meds/Results Medications: Active Medications Generic Name Dose Route Start Last Admin Trade Name Freq PRN Reason Stop Dose Admin Acetaminophen 650 mg 09/05/22 18:32 Acetaminophen 325 Mg Tablet PO Q4H PRN Mild Pain (1-3) or Fever Acetaminophen 500 mg 09/05/22 22:36 Acetaminophen 500 Mg Tablet PO Q6H PRN Pain (Scale Score 1-3) Albuterol 2 puff 09/05/22 22:36 Albuterol Sulfate (*Sp) Aerosol 1 Puff INHALATION Q4HRT PRN Shortness Of Breath Albuterol 2.5 mg 09/05/22 23:42 Albuterol Sulfate Neb 2.5 Mg/3 Ml Inh INHALATION Q6HRT PRN Shortness Of Breath Or Wheezing Artificial Tears 1 drop 09/05/22 22:36 Artificial Tears Ophth Soln 15 Ml Bottle EACH EYE Q4H PRN Dry Eye(S) Aspirin 81 mg 09/06/22 09:00 Aspirin 81 Mg Enteric Tablet PO DAILY GENEVA Benzonatate 200 mg 09/05/22 22:36 Benzonatate 100 Mg Capsule PO TID PRN Cough Bisacodyl 10 mg 09/05/22 22:36 Bisacodyl 10 Mg Suppository RECTAL DAILY PRN Constipation Dextrose 12.5 gm 09/05/22 22:52 Dextrose 50% 25 Gm/50 Ml Syringe IV PUSH PRN PRN Hypoglycemia Protocol Escitalopram Oxalate 20 mg 09/06/22 09:00 Escitalopram Oxalate 10 Mg Tablet PO DAILY GENEAV Ferrous Sulfate 324 mg 09/06/22 08:00 Ferrous Sulfate 324 Mg Tablet PO BIDWM GENEVA Glu
[2022-09-06 12:03] LABS: Glucose Point of Care 321 mg/dl (65-105)
[2022-09-06] MEDS: ACIDOPHILUS/BULGARICUS CHEWABLE TABLET 1 TABLET PO ×2 (12:09→16:57)
[2022-09-06] MEDS: FERROUS SULFATE 324 MG TABLET PO ×2 (12:09→16:59)
[2022-09-06] MEDS: LIOTHYRONINE SODIUM 5 MCG TABLET PO ×2 (12:10→16:59)
[2022-09-06] MEDS: ESCITALOPRAM OXALATE 10 MG TABLET 20 MG PO (12:10)
[2022-09-06] MEDS: ASPIRIN 81 MG ENTERIC TABLET PO (12:10)
[2022-09-06 12:11] VITALS: PULSE 66
[2022-09-06] MEDS: guaiFENesin 12 HR 600 MG TABCR PO (12:11)
[2022-09-06] MEDS: MAGNESIUM OXIDE 400 MG TABLET PO (12:11)
[2022-09-06] MEDS: lisinopriL 20 MG TABLET PO (12:11)
[2022-09-06] MEDS: MECLIZINE HCL 12.5 MG TABLET PO ×2 (12:12→16:58)
[2022-09-06] MEDS: INSULIN ASPART (*BKC) 100 UNITS/ML 8 UNITS SUB-Q ×2 (12:12→17:08)
[2022-09-06] MEDS: SODIUM CHLORIDE 1 GM TABLET PO ×2 (12:12→16:59)
[2022-09-06 14:00] VITALS: BP 148/68; PULSE 72; RESP 14; TEMP 36.6; O2SAT 98
[2022-09-06] MEDS: ACETAMINOPHEN 325 MG TABLET 650 MG PO (15:41)
[2022-09-06 17:08] LABS: Glucose Point of Care 171 mg/dl (65-105)
[2022-09-06 19:24] VITALS: BP 170/69; PULSE 71; RESP 18; TEMP 36.2; O2SAT 98
[2022-09-06 20:02] LABS: Glucose Point of Care 241 mg/dl (65-105)
[2022-09-06] MEDS: INSULIN GLARGINE (*BKC) 100 UNITS/ML 28 UNITS SUB-Q (22:29)
[2022-09-06 22:31] VITALS: PULSE 71
[2022-09-06] MEDS: HEPARIN SODIUM 5,000 UNITS/ML VIAL 5000 UNITS SUB-Q (22:32)
[2022-09-07] MEDS: ACETAMINOPHEN 325 MG TABLET 650 MG PO (02:04)
[2022-09-07 05:14] VITALS: BP 170/70; PULSE 80; RESP 19; TEMP 36.6; O2SAT 100
[2022-09-07 05:28] LABS: Hematocrit 33.5 % (37.0-47.0); Hemoglobin 10.9 g/dL (12.0-15.0); Immature Granulocyte Absolute 0.03 K/mm3 (0.00-0.031); Immature Granulocyte Percent A 0.3 % (0-0.5); Lymphocytes Absolute Auto 1.65 K/mm3 (0.9-3.2); Mean Corpuscular HGB Conc 32.5 g/dl (32-36); Mean Corpuscular Hemoglobin 29.9 pg (26-34); Mean Platelet Volume 11.2 fl (7.4-10.4); Monocytes Absolute Auto 0.6 K/mm3 (0.1-0.6); Neutrophils Absolute Auto 6.8 K/mm3 (1.3-6.7); Neutrophils Percent Auto 74.7 % (45.5-73.1); Platelet Count Result 275 k/mm3 (150-375); Red Blood Count 3.64 M/mm3 (4.2-5.4); Red Cell Distribution Width 11.9 % (11.5-14.5); White Blood Count 9.2 K/mm3 (4.5-10.0)
[2022-09-07 05:41] LABS: Anion Gap 7 mmol/L (8-16); Blood Urea Nitrogen 16 mg/dL (7-17); Calcium 8.1 mg/dL (8.4-10.2); Carbon Dioxide 27 mmol/L (22-30); Chloride 96 mmol/L (98-107); Estimated CRCL calculation 99 ml/min; Estimated Glomerular Filt Rate > 60; Glucose 305 mg/dL (65-110); Potassium 4.2 mmol/L (3.4-5.0); Sodium 130 mmol/L (137-145)
[2022-09-07 05:49] LABS: Vancomycin Trough 15.3 ug/mL (10.0-20.0)
[2022-09-07] MEDS: CEFEPIME 2 GM/NS 50 ML 2 GM/50 ML BAG IVPB ×2 (05:54→13:58)
[2022-09-07] MEDS: LEVOTHYROXINE SODIUM 112 MCG TABLET PO (06:30)
[2022-09-07] MEDS: VANCOMYCIN 1,250 MG/NS 250 ML 1,250 MG/250 ML BAG 166.67 MG IVPB (07:01)
[2022-09-07 08:00] LABS: Glucose Point of Care 271 mg/dl (65-105)
[2022-09-07] MEDS: ACIDOPHILUS/BULGARICUS CHEWABLE TABLET 1 TABLET PO ×2 (08:22→16:51)
[2022-09-07] MEDS: FERROUS SULFATE 324 MG TABLET PO ×2 (08:22→16:53)
[2022-09-07] MEDS: ASPIRIN 81 MG ENTERIC TABLET PO (08:22)
[2022-09-07] MEDS: ESCITALOPRAM OXALATE 10 MG TABLET 20 MG PO (08:23)
[2022-09-07] MEDS: INSULIN ASPART (*BKC) 100 UNITS/ML 8 UNITS SUB-Q ×3 (08:24→16:53)
[2022-09-07] MEDS: INSULIN ASPART (*BKC) 100 UNITS/ML SUB-Q (08:24)
[2022-09-07] MEDS: MECLIZINE HCL 12.5 MG TABLET PO ×3 (08:26→16:52)
[2022-09-07] MEDS: MAGNESIUM OXIDE 400 MG TABLET PO (08:26)
[2022-09-07] MEDS: HEPARIN SODIUM 5,000 UNITS/ML VIAL 5000 UNITS SUB-Q (08:26)
[2022-09-07 08:27] VITALS: PULSE 80
[2022-09-07] MEDS: METOPROLOL TARTRATE 25 MG TABLET PO ×2 (08:27→20:31)
[2022-09-07] MEDS: lisinopriL 20 MG TABLET PO (08:27)
[2022-09-07] MEDS: SODIUM CHLORIDE 1 GM TABLET PO ×3 (10:20→16:51)
[2022-09-07] MEDS: LIOTHYRONINE SODIUM 5 MCG TABLET PO ×2 (10:20→16:52)
[2022-09-07] MEDS: traMADol HCL (*CRX) 50 MG TABLET PO ×2 (10:21→20:31)
--- NOTE | 2022-09-07 11:06 | PM.IMPN ---
Progress Note: A&P Assessment and Plan (1) Peripheral vascular disease: Code(s): I73.9 - Peripheral vascular disease, unspecified Status: Acute (2) Gangrene of toe of right foot: Code(s): I96 - Gangrene, not elsewhere classified Status: Acute (3) Hypertensive urgency: Code(s): I16.0 - Hypertensive urgency Status: Acute (4) Uncontrolled type 1 diabetes mellitus: Status: Acute Plan 71 years old F with PMH of type 1DM presented with right foot toe swelling/redness/gangrene. 1)Right Foot Cellulitis/Gangrene: Await MRI foot C/w Vanc+Cefepime Monitor WBC count Appreciate surgery help Pain control 2)Type 1DM: Hyperglycemia, although better as compared to yesterday c/w lantus+SS Add meal time insulin to improve hyperglycemia BG check TID AC and HS 3)HTN: BP better today c/w lisinopril, PRN hydralazine 4)Hyponatremia: Likely chronic c/w salt tab 5)DVT ppx: Hep SQ 6)Code:Full 7)Dispo:pending improvement Subjective Date/time seen: 09/07/22 11:06 Interval history: No overnight events noted. No chest pain or shortness of breath. No nausea, vomiting or diarrhea. No fevers or chills. Her toe began draining. Review of Systems Review of Systems: 12 point review of systems was assessed and was negative except as noted in the HPI Exam Narrative: General: No acute distress, alert and oriented per baseline HEENT: Atraumatic, normocephalic, mucous membranes moist CV: Regular rate and rhythm, S1, S2 Lungs: Clear to auscultation bilaterally, no rales or crackles noted, no wheezes, good air entry Abdomen: Soft, nontender, nondistended Extremities: Normal to inspection, right great toe started draining, still decreased pulses, whole toe is purple Skin: No rashes noted, no lesions or wounds seen Psych: Euthymic, normal affect Objective Data Vital Signs Vital Signs: Vital Signs - 24 hr 09/06/22 12:11 09/06/22 14:00 09/06/22 19:24 Temperature 97.8 F 97.2 F L Pulse Rate 66 72 71 Respiratory Rate 14 18 Blood Pressure 148/68 H 170/69 H Pulse Oximetry 98 98 Oxygen Delivery 09/06/22 22:31 09/07/22 05:14 09/07/22 08:27 Temperature 97.9 F Pulse Rate 71 80 80 Respiratory Rate 19 Blood Pressure 170/70 H Pulse Oximetry 100 Oxygen Delivery 09/07/22 08:00 Temperature Pulse Rate Respiratory Rate Blood Pressure Pulse Oximetry Oxygen Delivery Room Air Intake/Output Intake/Output: Intake & Output 09/04/22 09/05/22 09/06/22 09/07/22 23:59 23:59 23:59 23:59 Intake Total 1550 2692 250 Output Total 901 1050 Balance 1550 1791 -800 Meds/Results Medications: Active Medications Generic Name Dose Route Start Last Admin Trade Name Freq PRN Reason Stop Dose Admin Acetaminophen 650 mg 09/05/22 18:32 09/07/22 02:04 Acetaminophen 325 Mg Tablet PO 650 mg Q4H PRN Administration Mild Pain (1-3) or Fever Acetaminophen 500 mg 09/05/22 22:36 Acetaminophen 500 Mg Tablet PO Q6H PRN Pain (Scale Score 1-3) Albuterol 2 puff 09/05/22 22:36 Albuterol Sulfate (*Sp) Aerosol 1 Puff INHALATION Q4HRT PRN Shortness Of Breath Albuterol 2.5 mg 09/05/22 23:42 Albuterol Sulfate Neb 2.5 Mg/3 Ml Inh INHALATION Q6HRT PRN Shortness Of Breath Or Wheezing Artificial Tears 1 drop 09/05/22 22:36 Artificial Tears Ophth Soln 15 Ml Bottle EACH EYE Q4H PRN Dry Eye(S) Aspirin 81 mg 09/06/22 09:00 09/07/22 08:22 Aspirin 81 Mg Enteric Tablet PO 81 mg DAILY GENEVA Administration Benzonatate 200 mg 09/05/22 22:36 Benzonatate 100 Mg Capsule PO TID PRN Cough Bisacodyl 10 mg 09/05/22 22:36 Bisacodyl 10 Mg Suppository RECTAL DAILY PRN Constipation Dextrose 12.5 gm 09/05/22 22:52 Dextrose 50% 25 Gm/50 Ml Syringe IV PUSH PRN PRN Hypoglycemia Protocol Escitalopram Oxalate 20 mg 09/06/22 09:00
[2022-09-07 11:51] LABS: Glucose Point of Care 130 mg/dl (65-105)
--- NOTE | 2022-09-07 11:52 | PM.PNGS ---
Progress Note: A&P Assessment and Plan (1) Gangrene of toe of right foot: Code(s): I96 - Gangrene, not elsewhere classified Status: Acute Assessment and Plan: Right great toe wound now with wet necrotic tissue and foul odor today as the medial eschar has opened up. This extends to bone. MRI suggesting septic arthritis of the first interphalangeal joint with osteomyelitis at the distal and proximal phalanx. ABIs ordered and showed no detectable arterial flow in the right great toe and decreased left TBI consistent with arterial occlusive disease. Patient needs vascular surgery evaluation and will eventually need a right great toe amputation. With the findings of osteomyelitis and changes of the wound overnight, it would be best for her to be acutely transferred to a tertiary care facility that has vascular surgery available. I discussed this with the Hospitalist, who will work on transfer. Continue IV antibiotics for now. Will change wound care to vasoline gauze dressing changes covered with dry gauze. (2) Peripheral vascular disease: Code(s): I73.9 - Peripheral vascular disease, unspecified Status: Acute Plan I have discussed the patient's case and plan of care with Dr. Curry. Subjective Subjective Date/Time Seen: 09/07/22 11:52 Patient reports: no new complaints and afebrile Interval history: Patient seen today with no family at the bedside. No new complaints or acute events overnight. Review of Systems Review of Systems: ROS unchanged Exam Const: General: comfortable and no acute distress Orientation/consciousness: patient oriented x3 Extrem: Right lower extremity: foot (charcot, hallux valgus deformities) Details: tenderness Location: of the great toe and vascular exam (unable to palpate DP or PT pulses, doppler able to find weak DP and strong PT pulses) Details: cyanosis Location: of the great toe Other: Right great toe with ischemic changes and swelling and medial area of black eschar has opened up and is now wet and necrotic appearing today with a foul odor, this extends to bone, lateral black eschar still intact and dry. Some erythema of the 1st MTP joint. Tender to palpation. Objective Data Vital Signs Vital Signs: Vital Signs - 24 hr 09/06/22 12:11 09/06/22 14:00 09/06/22 19:24 Temperature 97.8 F 97.2 F L Pulse Rate 66 72 71 Respiratory Rate 14 18 Blood Pressure 148/68 H 170/69 H Pulse Oximetry 98 98 Oxygen Delivery 09/06/22 22:31 09/07/22 05:14 09/07/22 08:27 Temperature 97.9 F Pulse Rate 71 80 80 Respiratory Rate 19 Blood Pressure 170/70 H Pulse Oximetry 100 Oxygen Delivery 09/07/22 08:00 Temperature Pulse Rate Respiratory Rate Blood Pressure Pulse Oximetry Oxygen Delivery Room Air Intake/Output Intake/Output: Intake & Output 09/04/22 09/05/22 09/06/22 09/07/22 23:59 23:59 23:59 23:59 Intake Total 1550 2692 250 Output Total 901 1050 Balance 1550 1791 -800 Meds/Results Medications: Active Medications Generic Name Dose Route Start Last Admin Trade Name Freq PRN Reason Stop Dose Admin Acetaminophen 650 mg 09/05/22 18:32 09/07/22 02:04 Acetaminophen 325 Mg Tablet PO 650 mg Q4H PRN Administration Mild Pain (1-3) or Fever Acetaminophen 500 mg 09/05/22 22:36 Acetaminophen 500 Mg Tablet PO Q6H PRN Pain (Scale Score 1-3) Albuterol 2 puff 09/05/22 22:36 Albuterol Sulfate (*Sp) Aerosol 1 Puff INHALATION Q4HRT PRN Shortness Of Breath Albuterol 2.5 mg 09/05/22 23:42 Albuterol Sulfate Neb 2.5 Mg/3 Ml Inh INHALATION Q6HRT PRN Shortness Of Breath Or Wheezing Artificial Tears 1 drop 09/05/22 22:36 Artificial Tears Ophth Soln 15 Ml Bottle EACH EYE Q4H PRN Dry Eye(S) Aspirin 81 mg 09/06/22 09:00 09/07/22 08:22 Aspirin 81 Mg Enteric Tablet PO 81 mg DAILY GENEVA Administration Benzonatate 200 mg 09/05/22 22:36 Be
[2022-09-07 13:45] VITALS: BP 170/56; PULSE 75; RESP 18; TEMP 36.3; O2SAT 99
[2022-09-07 16:45] LABS: Glucose Point of Care 141 mg/dl (65-105)
[2022-09-07 19:49] VITALS: BP 183/64; PULSE 86; RESP 19; TEMP 36.8; O2SAT 100
[2022-09-07 20:29] LABS: Glucose Point of Care 209 mg/dl (65-105)
[2022-09-07 20:31] VITALS: PULSE 86
[2022-09-07] MEDS: risperiDONE 0.5 MG TABLET 1.5 MG PO (20:32)
--- NOTE | 2022-09-07 21:04 | PC.NURSE ---
Pt transferred to [facility] via [facility] with all belongings. Pt given GENEVA tramadol, risperidone, and lopressor prior to transfer. Report called by previous shift, Sigrid CHEEMA called report to Cyndy CHEEMA.
--- NOTE | 2022-09-11 15:42 | PM.TDS ---
Transfer Discharge Sum: Prov Provider Date of admission: 09/06/22 19:10 Primary care physician: Jb Porter, Admitting clinician: Ian Mariscal MD Consults: 09/05/22 Consult to Physician Routine Comment: Consulting Provider: Evelyn Curry Reason for consultation: R great toe infection Has provider been notified: Yes 09/06/22 03:31 Wound/ET Consult Routine Reason for Consult:: s/p partial toenail removal, now necrotic right great toe DS: Admitting Diagnosis Discharge Date 09/07/22 Admitting Diagnosis diabetic ulcer DS: Discharge Diagnosis Discharge Diagnosis (1) Peripheral vascular disease: Code(s): I73.9 - Peripheral vascular disease, unspecified Status: Acute (2) Gangrene of toe of right foot: Code(s): I96 - Gangrene, not elsewhere classified Status: Acute (3) Hypertensive urgency: Code(s): I16.0 - Hypertensive urgency Status: Acute (4) Uncontrolled type 1 diabetes mellitus: Status: Acute Plan 71 years old F with PMH of type 1DM presented with right foot toe swelling/redness/gangrene. 1)Right Foot Cellulitis/Gangrene: Await MRI foot C/w Vanc+Cefepime Monitor WBC count Appreciate surgery help Pain control 2)Type 1DM: Hyperglycemia, although better as compared to yesterday c/w lantus+SS Add meal time insulin to improve hyperglycemia BG check TID AC and HS 3)HTN: BP better today c/w lisinopril, PRN hydralazine 4)Hyponatremia: Likely chronic c/w salt tab 5)DVT ppx: Hep SQ 6)Code:Full 7)Dispo:pending improvement Transfer Discharge Sum: Med Medications Active and Home Medications: Home Medications escitalopram oxalate 20 mg tablet 20 mg PO DAILY 06/01/19 [History Confirmed 09/05/22] meclizine 12.5 mg tablet 12.5 mg PO TID 06/01/19 [History Confirmed 09/05/22] nystatin 100,000 unit/gram topical cream 1 applic topical BID PRN Rash 06/01/19 [History Confirmed 09/05/22] metoprolol tartrate 25 mg tablet 25 mg PO Q12HR #60 tabs 06/04/19 [Rx Confirmed 09/05/22] glucagon (human recombinant) 1 mg solution for injection (Glucagon Emergency Kit) 1 mg subcut Q20M PRN Hypoglycemia 07/29/19 [History Confirmed 09/05/22] ondansetron HCl 4 mg tablet (Zofran) 4 mg PO Q8H PRN Nausea 07/29/19 [History Confirmed 09/05/22] acetaminophen 500 mg tablet (Tylenol Extra Strength) 500 mg PO Q6H PRN Pain (Scale Score 1-3) 01/23/20 [History Confirmed 09/05/22] aspirin 81 mg tablet,delayed release 81 mg PO DAILY #1 tablet 01/23/20 [Rx Confirmed 09/05/22] polyvinyl alcohol-povidone (PF) 1.4 %-0.6 % eye drops in a dropperette (Refresh Classic (PF)) 1 drop ophthalmic (eye) Q4H PRN Dry Eye(S) 01/23/20 [History Confirmed 09/05/22] Miralax 1 dose PO DAILY PRN Constipation 11/02/20 [History Confirmed 09/05/22] albuterol sulfate 90 mcg/actuation aerosol inhaler 2 puff inhalation Q4H PRN Shortness Of Breath 11/02/20 [History Confirmed 09/05/22] bisacodyl 10 mg RECTAL DAILY PRN Constipation 11/02/20 [History Confirmed 09/05/22] calcium carbonate 600 mg-vitamin D3 10 mcg (400 unit) tablet 1 tablet PO BID 11/02/20 [History Confirmed 09/05/22] dimethicone-petrolatum 1 applic topical PRN PRN reddened/excoriated skin 11/02/20 [History Confirmed 09/05/22] ipratropium 0.5 mg-albuterol 3 mg (2.5 mg base)/3 mL nebulization soln 3 ml inhalation Q6H PRN Shortness Of Breath Or Wheezing 11/02/20 [History Confirmed 09/05/22] sodium chloride 1 gram tablet 1,000 mg PO TID 11/02/20 [History Confirmed 09/05/22] ferrous sulfate 325 mg (65 mg iron) tablet 324 mg PO BIDWM #60 tabs 11/04/20 [Rx Confirmed 09/05/22] furosemide 40 mg tablet 40 mg PO QAM #30 tabs 11/04/20 [Rx Confirmed 09/05/22] lisinopril 10 mg tablet 10 mg PO QAM #30 tabs 11/04/20 [Rx Confirmed 09/05/22] magnesium oxide 400 mg (241.3 mg magnesium) tablet 400 mg PO DAILY #30 tabs 11/04/20 [Rx Confirmed 09/05/22] simethicone 125 mg capsule (Gas Relief (simethicone)) 125 mg PO DAILY PRN abdominal distention #20 caps 11/04/20 [Rx Con
== END 2022-09-07 20:40 | disposition short-term general hospital (02) | DRG 603 ==
LOC: ANHED 18:18 → ANH2MED 20:08
PROVIDERS: Hospitalist; Internal Medicine; Admitting Provider Family Medicine; Emergency Provider Physician Assistant; PCP Internal Medicine; Visit Provider Student in an Organized Health Care Education/Training Program
DX: L03.115 Cellulitis of right lower limb (principal); E10.52 Type 1 diabetes mellitus with diabetic peripheral angiopathy with gangrene; I96 Gangrene, not elsewhere classified; E87.1 Hypo-osmolality and hyponatremia; Z68.42 Body mass index [BMI] 45.0-49.9, adult; M00.9 Pyogenic arthritis, unspecified; M86.9 Osteomyelitis, unspecified; E10.65 Type 1 diabetes mellitus with hyperglycemia; E10.628 Type 1 diabetes mellitus with other skin complications; E53.8 Deficiency of other specified B group vitamins; E03.9 Hypothyroidism, unspecified; E66.01 Morbid (severe) obesity due to excess calories; E10.42 Type 1 diabetes mellitus with diabetic polyneuropathy; F31.9 Bipolar disorder, unspecified; F41.9 Anxiety disorder, unspecified; F20.9 Schizophrenia, unspecified; H40.9 Unspecified glaucoma; I16.0 Hypertensive urgency; I11.0 Hypertensive heart disease with heart failure; I50.9 Heart failure, unspecified; K21.9 Gastro-esophageal reflux disease without esophagitis; K43.9 Ventral hernia without obstruction or gangrene; Z98.41 Cataract extraction status, right eye; Z88.0 Allergy status to penicillin; Z98.42 Cataract extraction status, left eye; R26.89 Other abnormalities of gait and mobility; Z79.4 Long term (current) use of insulin; Z79.84 Long term (current) use of oral hypoglycemic drugs; Z85.850 Personal history of malignant neoplasm of thyroid; Z90.89 Acquired absence of other organs; Z90.49 Acquired absence of other specified parts of digestive tract
CPT/HCPCS: 36415; 73630; 73720; 80048; 80053; 80202; 82948; 83605; 84443; 85025; 85027; 93922; 96361; 96365; 96366; 96368; 99285; A9270; A9577; G0378; J0692; J1644; J1815; J3370; J7030